=== PATIENT | male | born 1965 | race Caucasian/White ===

== ENCOUNTER 2020-12-09 10:25 | Emergency (ER) | payer OTHER ==
[~2020-12-09] VITALS: Ht 177.8 cm; Wt 104.5 kg
[2020-12-09] MEDS ORDERED: LIDOCAINE/EPI 1%-1:100,000 (XYLOCAINE) 20ML INJ ONE (11:30)
[2020-12-09] MEDS ORDERED: LIDOCAINE/EPI 2% 1:100,00 (XYLOCAINE) 20 ML VIAL INJ ONE (11:45)
[2020-12-09] MEDS: LIDOCAINE 1% INJ 20 ML 20 ML VIAL INJ ONE ×2 (11:54→11:58)
[2020-12-09] MEDS ORDERED: SULF1TAB35 PO (12:01)
--- NOTE | 2020-12-09 12:01 | ED Integumentary General ---
General Chief Complaint: Skin/Wound Problems Stated Complaint: L LEG BOIL Nursing Triage Note: AMB TO ROOM HAS AREA ON BACK OF L LEG X 4 DAYS STATES HAS SAMETHING LAST YEAR POKED IT WITH A NEEDLE. AND IT GOT BETTR. POKED IT 3 DAYS AGO AND IT HAS GOTTEN RED AND PAINFUL Source: patient Exam Limitations: no limitations (JOSE WILL MD) History of Present Illness Date Seen by Provider: December 09, 2020 Time Seen by Provider: 11:08 Initial Comments Here with report of abscess to the lateral upper aspect of the left leg at the underwear line. This is gotten worse over the last 4 days. Previously had 1 similar in the same area that he was able to get to drain but this 1 would not. Patient states he is diabetic but controlled by diet. Also complained of some right testicular pain. Denies any wounds or skin issues there and that comes and goes daily over the last several weeks. 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 Denies dysuria. Timing/Duration: other (4 days) Severity: moderate Location: extremities Possible Cause: no cause identified Associated Symptoms: change in skin texture; No fever; swelling/mass/lumps (JOSE WILL MD) Allergies and Home Medications Allergies Coded Allergies: No Known Drug Allergies (Unverified , 12/09/20) Home Medications Sulfamethoxazole/Trimethoprim 1 Each Tablet, 1 EACH PO BID Prescribed by: JOSE WILL on 12/09/20 1201 Patient Home Medication List Home Medication List Reviewed: Yes (JOSE WILL MD) Review of Systems Review of Systems Constitutional: see HPI; No chills, No fever Respiratory: no symptoms reported Cardiovascular: no symptoms reported Genitourinary: see HPI; No dysuria Skin: see HPI, change in color, lesions (JOSE WILL MD) Past Qmqohlf-Pyzqrm-Pfnjlp Hx Past Med/Social Hx: Reviewed Nursing Past Med/Soc Hx (JOSE WILL MD) Patient Social History Alcohol Use: Occasionally Uses Smoking Status: Never a Smoker Recent Infectious Disease Expo: No (JOSE WILL MD) Past Medical History Surgeries: No Respiratory: No Cardiac: No Neurological: No Genitourinary: No Gastrointestinal: No Musculoskeletal: No Endocrine: No (PAST HX BEFORE WT LOSS) Integumentary: No (JOSE WILL MD) Family Medical History Reviewed Nursing Family Hx (JOSE WILL MD) Physical Exam Vital Signs Vital Signs - First Documented 12/09/20 10:32 Temp 36.0 Pulse 96 Resp 18 B/P (MAP) 145/111 (122) Pulse Ox 96 O2 Delivery Room Air (NORIS SMITH APRN) Vital Signs Capillary Refill : Less Than 3 Seconds (JOSE WILL MD) General Appearance: WD/WN, no apparent distress Cardiovascular: regular rate, rhythm, no murmur Respiratory: lungs clear, normal breath sounds Skin: warm/dry Skin Problem Location: lower extremities (Left upper lateral lower extremity) Skin Problem Character: abscess (3 x 3 cm), erythema (6 x 6 cm) Comments Testicular exam shows both testicles without mass. No obvious erythema or swelling. Right inguinal paper twister tender and worse with cough. Does have small umbilical hernia and right inguinal hernia. (JOSE WILL MD) Procedures/Interventions I&D : Blade Size: 11 Packing/Drain: Idoform 08/08 Progress Anesthetized locally with 2 mL of 1% lidocaine without epinephrine. 1 cm in cision made with 11 blade scalpel. Large amount of purulent and clotted blood material expressed. Culture collected and sent to lab. Loculations broken up with the sterile Q-tip. Cavity was then irrigated with chlorhexidine/saline solution then packed with iodoform gauze quarter inch. (NORIS SMITH APRN) Progress/Results/Core Measures Results/Orders My Orders Orders - NORIS SMITH APRN Lidocaine/Epi 2% 1:100,000 (Xylocaine/Ep (12/09/20 11:45) Lidocaine 1% Inj 20 Ml (Xylocaine 1% Inj (12/09/20 11:45) (NORIS SMITH APRN) Medications Given in ED Current Medications Medications Dose Ordered Sig/Ernestine Route Start Time Stop Time Status Last Admin Dose Admin Lidocaine HCl 20 ml ONCE ONCE INJ 12/09/20 11:45 12/09/20 11:46 DC 12/09/20 11:58 20 ML (NORIS SMITH APRN) Vital Signs/I&O 12/09/20 10:32 Temp 36.0 Pulse 96 Resp 18 B/P (MAP) 145/111 (122) Pulse Ox 96 O2 Delivery Room Air (NORIS SMITH APRN) Blood Pressure Mean: 122 Progress Progress Note : Progress Note Seen and evaluated. I&D by Noris Smith APRN. I did discuss with the patient regarding hernia. He will follow-up as needed. (JOSE WILL MD) Departure Impression Primary Impression: Abscess of left leg Additional Impression: Right inguinal hernia Disposition: HOME, SELF-CARE Condition: Improved Departure-Patient Inst. Decision time for Depature: 12:00 (JOSE WILL MD) Referrals: NO,LOCAL PHYSICIAN (PCP/Family) Primary Care Physician Patient Instructions: Inguinal and Femoral (Groin) Hernias, Wound Incision and Drainage (DC) Add. Discharge Instructions: 1. Return to ER on Saturday for wound check. You can take the gauze off to shower and to change it as needed. Return Saturday and we will remove the packing and maybe leave it out or maybe repack it. Return to ER for any fevers chills or worsening symptoms in the meantime. All discharge instructions reviewed with patient and/or family. Voiced understan rosie. Scripts Cephalexin (Cephalexin) 500 Mg Tablet 500 MG PO TID, #21 TAB Prov: NORIS SMITH APRN 12/09/20 Sulfamethoxazole/Trimethoprim (Bactrim Ds Tablet) 1 Each Tablet 1 EACH PO BID, #20 TAB 0 Refills Prov: JOSE WILL MD 12/09/20 JOSE WILL MD December 09, 2020 12:01 NORIS SMITH APRN December 09, 2020 12:05
[2020-12-09] MEDS ORDERED: CEPH500T PO (12:04)
[2020-12-09 12:09] VITALS: BP 143/100
== END 2020-12-09 12:16 | disposition home or self-care (01) ==
LOC: ER 10:29
DX: L02.416 Cutaneous abscess of left lower limb (principal); K40.90 Unilateral inguinal hernia, without obstruction or gangrene, not specified as recurrent; E11.9 Type 2 diabetes mellitus without complications
CPT/HCPCS: 10061; 87070; 87077; 87205

== ENCOUNTER 2020-12-12 13:38 | Emergency (ER) | payer OTHER ==
[~2020-12-12] VITALS: Ht 177 cm; Wt 104.0 kg
[~2020-12-12 13:38] MED LIST: CEPH500T PO; SULF1TAB35 PO
[2020-12-12 13:40] VITALS: BP 122/83
--- NOTE | 2020-12-12 14:12 | ED Suture Removal/Wound Check ---
Suture/Wound Re-check Suture Removal/Wound Recheck : Suture Removal/Wound Recheck: Packing removed General Appearance: WD/WN, no apparent distress Skin Exam: normal color, warm/dry Comments Wound without any active drainage, no erythema, induration or fluctuance. Packing removed. Patient tolerated well. Wound irrigated with 500 mL of sterile saline and bulky sterile dressing applied. No further packing used. Physical Exam Vital Signs Vital Signs - First Documented 12/12/20 13:40 Temp 36.6 Pulse 86 Resp 20 B/P (MAP) 122/83 Pulse Ox 96 Capillary Refill : General Appearance: WD/WN, no apparent distress Cardiovascular: normal peripheral pulses, regular rate, rhythm Respiratory: chest non-tender, lungs clear Neurologic/Psychiatric: no motor/sensory deficits, alert, normal mood/affect, oriented x 3 Skin: normal color, warm/dry Departure Impression Primary Impression: Abscess of left thigh Disposition: 01 HOME, SELF-CARE Condition: Improved Departure-Patient Inst. Decision time for Depature: 14:05 Referrals: [facility],LOCAL PHYSICIAN (PCP) Primary Care Physician Add. Discharge Instructions: Finish all antibiotics as prescribed. Clean wound with peroxide 2-3 times daily. Use dressing as needed for drainage. Establish care with a primary care provider. Return to the emergency department for new, urgent healthcare needs. All discharge instructions reviewed with patient and/or family. Voiced understa nding. SUSANNE ANTHONY December 12, 2020 14:12
== END 2020-12-12 14:15 | disposition home or self-care (01) ==
LOC: EDUNIT# 13:38 → ER 13:40
DX: Z48.01 Encounter for change or removal of surgical wound dressing (principal)
CPT/HCPCS: 99281

== ENCOUNTER 2021-04-01 22:34 | Emergency (ER) | payer OTHER ==
[~2021-04-01] VITALS: Ht 177.8 cm; Wt 100.0 kg
[~2021-04-01 22:34] MED LIST changes: -SULF1TAB35 PO; +SULF1TAB38 PO
--- OUTSIDE RECORDS SUMMARY | 2021-04-01 22:41 | XMS REPORT ---
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 Phone YADIEL CHINCHILLA PCP YADIEL CHINCHILLA PreferredProvider Allergies and Adverse Reactions Name Reaction Notes No known allergies Plan of Treatment Planned Activity Comments Planned Date Planned Time Plan/Goal CBC with Auto 03/15/2021 12:00 AM Comprehensive metabolic panel 03/15/2021 12:00 AM Lipid Profile 03/15/2021 12:00 AM HGB A1C 03/15/2021 12:00 AM PSA TOTAL 03/15/2021 12:00 AM Medications Active Name Start Date Estimated Completion Date SIG Co mments sildenafil (pulmonary hypertension) 20 mg tablet 02/23/2021 take 1 tablet (20 mg) by oral route 3 times per day Name Start Date Expiration Date SIG Comments Cipro 500 mg tablet 12/30/2020 01/09/2021 take 1 table t (500 mg) by oral route 2 times per day for 10 days Xanax 0.5 mg tablet 12/30/2020 01/29/2021 1/2 to 1 twi ce daily as needed for anxiety Cialis 20 mg tablet 12/30/2020 01/10/2021 take 1 table t (20 mg) by oral route once daily for 1 day Problem List Description Status Onset Type 2 diabetes, diet controlled Active 021 Erectile dysfunction, unspecified erectile dysfunction type Active 01/01/2021 RIVERA (generalized anxiety disorder) Active 01/01 Vital Signs Date Time BP-Sys(mm[Hg] BP-Jaki(mm[Hg]) HR(bpm) RR(rpm) Temp WT HT HC BMI BSA BMI Percentile O2 Sat(%) 12/30/2020 9:27:00 AM 118 mm[Hg] 82 mm[Hg] 88 {beats}/min 18 rpm 98.1 F 238 lbs 70 in 34.1491 kg/m2 2.3091 m2 96 % Social History Name Description Comments Alcohol Never Tobacco Never smoker Uses seatbelts History of Procedures Date Ordered Description Order Status 03/15/2021 12:00 AM ROUTINE VENIPUNCTURE Reviewed Results Summary Not available. History Of Immunizations Not available. History of Past Illness Name Date of Onset Comments Type 2 diabetes, diet controlled 01/01/2021 Erectile dysfunction, unspecified erectile dysfunction type 01/01/2021 RIVERA (generalized anxiety disorder) 01/01/2021 Moderate Chronic Recurrent Type 2 diabetes, diet controlled Dec 30 2020 9:28AM Erectile dysfunction, unspecified erectile dysfunction type Dec 30 2020 9:28AM Flank pain Dec 30 2020 9:28AM Establishing care with new doctor, encounter for Dec 30 2020 9:28AM Mild Chronic Recurrent RIVERA (generalized anxiety disorder) Ma y 2020 9:28AM Stress at work Dec 30 2020 9:28AM Medication care plan discussed with patient Dec 30 2020 9:2 8AM Type 2 diabetes, diet controlled Mar 15 2021 8:52AM Screening for prostate cancer Mar 15 2021 8:52AM Payers Insurance Name Company Name Plan Name Plan Number Policy Number [place] [employer] Group Number Start Date W[employer]o Maryclementluisito [id number] N/A History of Encounters Visit Date Visit Type Provider 03/15/2021 Laboratory YADIEL JONES 12/30/2020 Office visit YADIEL JONES
--- OUTSIDE RECORDS SUMMARY | 2021-04-01 22:41 | XMS REPORT ---
Author Author Sammy CHINCHILLA [facility] Address [address] [place], [place] [id number] Care Team Providers Care Bean Sorter Name Role Phone YADIEL CHINCHILLA PCP YADIEL CHINCHILLA PreferredProvider Allergies and Adverse Reactions Name Reaction Notes No known allergies Plan of Treatment Planned Activity Comments Planned Date Planned Time Plan/Goal CBC with Auto 03/15/2021 12:00 AM Comprehensive metabolic panel 03/15/2021 12:00 AM Lipid Profile 03/15/2021 12:00 AM HGB A1C 03/15/2021 12:00 AM PSA TOTAL 03/15/2021 12:00 AM TESTOSTERONE FREE 03/15/2021 12:00 AM Medications Active Name Start [...] Mild Chronic Recurrent RIVERA (generalized anxiety disorder) Dc y 2020 9:28AM Stress at work Dec 30 2020 9:28AM Medication care plan discussed with patient Dec 30 2020 9:2 8AM Type 2 diabetes, diet controlled Mar 15 2021 8:52AM Screening for prostate cancer Mar 15 2021 8:52AM Erectile disorder, acquired, generalized, moderate Mar 15 8:52AM Payers Insurance Name Company Name Plan Name Plan Number Policy Number [employer] Group Number Start Date W[employer] [place] [id number] N/A History of Encounters Visit Date Visit Type Provider 03/15/2021 Laboratory YADIEL JONES 12/30/2020 Office visit YADIEL JONES
[2021-04-02] MEDS ORDERED: ACETAMINOPHEN 500 MG TAB (TYLENOL) PO ONE
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
[2021-04-02] MEDS ORDERED: KETOROLAC 30 MG/ML VIAL IM ONE (01:30)
[2021-04-02 01:46] VITALS: BP 126/80
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
== END 2021-04-02 01:43 | disposition home or self-care (01) ==
LOC: EDUNIT# 22:34 → ER 22:37
DX: M54.5 Low back pain (principal)
CPT/HCPCS: 72131; 72192

== ENCOUNTER 2023-03-28 19:41 | Inpatient (IN) | payer OTHER ==
[~2023-03-28] VITALS: Ht 175.3 cm; Wt 108.6 kg
[2023-03-28] MEDS ORDERED: ASPIRIN 81 MG CHEWABLE TABLET ONE (19:53)
[2023-03-28 20:05] LABS: BASOPHILS % (AUTO) 0 % (0-10); EOSINOPHILS % (AUTO) 0 % (0-10); HEMATOCRIT 42 % (40-54); HEMOGLOBIN 14.5 g/dL (13.3-17.7); LYMPHOCYTES # (AUTO) 0.9 10^3/uL (1.0-4.0); LYMPHOCYTES % (AUTO) 10 % (12-44); MEAN CORPUSCULAR HEMOGLOBIN 31 pg (25-34); MEAN CORPUSCULAR HGB CONC 35 g/dL (32-36); MEAN CORPUSCULAR VOLUME 90 fL (80-99); MEAN PLATELET VOLUME 10.8 fL (9.0-12.2); MONOCYTES # (AUTO) 0.1 10^3/uL (0.0-1.0); MONOCYTES % (AUTO) 1 % (0-12); NEUTROPHILS # (AUTO) 8.5 10^3/uL (1.8-7.8); NEUTROPHILS % (AUTO) 89 % (42-75); PLATELET COUNT 245 10^3/uL (130-400); WHITE BLOOD COUNT 9.6 10^3/uL (4.3-11.0)
--- NOTE | 2023-03-28 20:14 | ED Chest Pain ---
General Chief Complaint: Chest Pain Stated Complaint: CHEST PAIN Source: patient Exam Limitations: no limitations History of Present Illness Date Seen by Provider: Mar 28, 2023 Time Seen by Provider: 19:56 Initial Comments 57-year-old male presents to the ER with complaint of chest pain that started 2 hours prior to arrival. He states that the pain is a pressure-like pain in his midsternal chest, but also has pain across his entire chest. Reports diaphoresis and nausea with the pain. States that he was walking around at work when the pain started. Denies radiation of the pain into his arms, neck, or back. Denies shortness of air. States that the pain usually last about 3 hours, states it improves after taking Tylenol and ibuprofen. Past medical history includes diabetes. Reports occasional cigar use, states he does not inhale the cigars. Patient also complaining of pain in his right back. States the pain starts in his right neck and goes all the way down the right side of his back. Reports he has been seeing a chiropractor for this pain, but reports minimal improvement. Allergies and Home Medications Allergies Coded Allergies: No Known Drug Allergies (Unverified , 12/09/20) Patient Home Medication List Home Medication List Reviewed: Yes Acetaminophen (Tylenol Extra Strength) 500 Mg Tablet, 1,000 MG PO Q8H PRN for PAIN-MILD (1-4), (Reported) Entered as Reported by: KATIE MOSQUEDA on 03/29/23 1046 Last Action: Reviewed Ibuprofen (Ibuprofen) 200 Mg Tablet, 400 MG PO Q8H PRN for PAIN-MILD (1-4), (Reported) Entered as Reported by: KATIE MOSQUEDA on 03/29/23 104 Last Action: Reviewed Metformin HCl (Metformin HCl) 500 Mg Tablet, 500 MG PO BID, (Reported) Entered as Reported by: KATIE MOSQUEDA on 03/29/23 104 Last Action: Reviewed Discontinued Medications Cephalexin (Cephalexin) 500 Mg Tablet, 500 MG PO TID Discontinued Reason: No Longer Taking Prescribed by: NORIS SMITH on 12/09/20 1204 Last Action: Discontinued Sulfamethoxazole/Trimethoprim (Bactrim Ds Tablet) 1 Each Tablet, 1 EACH PO BID Discontinued Reason: No Longer Taking Prescribed by: JOSE WILL on 12/09/20 1201 Last Action: Discontinued Review of Systems Review of Systems Constitutional: see HPI Past Msmmsjn-Xcaegt-Wwdrbc Hx Patient Social History Tobacco Use?: Yes Tobacco type used: Cigars Smoking Status: Current Someday Smoker Additional substance use comme: DENIES Immunizations Up To Date Second COVID19 Vaccination Matthias: 03/27/21 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 oz. kg; 31.00 BMI Method:Actual General Appearance: No Apparent Distress, WD/WN Neck: Full Range of Motion, Normal Inspection, Supple, Tender Lateral Respiratory: Lungs Clear, Normal Breath Sounds, No Accessory Muscle Use, No Respiratory Distress, Other (Chest is tender to palpation) Cardiovascular: Regular Rate, Rhythm Extremity: Normal Inspection, Normal Range of Motion Neurologic/Psychiatric: Alert, No Motor/Sensory Deficits Skin: Normal Color, Warm/Dry Other comments Tenderness to muscles on the right side of patient's back Progress/Results/Core Measures Results/Orders Lab Results Laboratory Tests Test 03/28/23 19:57 03/28/23 20:20 03/28/23 20:56 03/28/23 21:13 Range/Units White Blood Count 9.6 4.3-11.0 10^3/uL Red Blood Count 4.67 4.30-5.52 10^6/uL Hemoglobin 14.5 13.3-17.7 g/dL Hematocrit 42 40-54 % Mean Corpuscular Volume 90 80-99 fL Mean Corpuscular Hemoglobin 31 25-34 pg Mean Corpuscular Hemoglobin Concent 35 32-36 g/dL Red Cell Distribution Width 12.0 10.0-14.5 % Platelet Count 245 130-400 10^3/uL Mean Platelet Volume 10.8 9.0-12.2 fL Immature Granulocyte % (Auto) 1 % Neutrophils (%) (Auto) 89 H 42-75 % Lymphocytes (%) (Auto) 10 L 12-44 % Monocytes (%) (Auto) 1 0-12 % Eosinophils (%) (Auto) 0 0-10 % Basophils (%) (Auto) 0 0-10 % Neutrophils # (Auto) 8.5 H 1.8-7.8 10^3/uL Lymphocytes # (Auto) 0.9 L 1.0-4.0 10^3/uL Monocytes # (Auto) 0.1 0.0-1.0 10^3/uL Eosinophils # (Auto) 0.0 0.0-0.3 10^3/uL Basophils # (Auto) 0.0 0.0-0.1 10^3/uL Immature Granulocyte # (Auto) 0.1 0.0-0.1 10^3/uL Neutrophils % (Manual) 91 % Lymphocytes % (Manual) 6 % Band Neutrophils 3 % Platelet Estimate ADEQUATE Blood Morphology Comment NORMAL Sodium Level 138 135-145 MMOL/L Potassium Level 5.0 3.6-5.0 MMOL/L Chloride Level 108 H 98-107 MMOL/L Carbon Dioxide Level 17 L 21-32 MMOL/L Anion Gap 13 5-14 MMOL/L Blood Urea Nitrogen 19 H 7-18 MG/DL Creatinine 1.47 H 0.60-1.30 MG/DL Estimat Glomerular Filtration Rate 55 BUN/Creatinine Ratio 13 Glucose Level 557 *H 70-105 MG/DL Calcium Level 8.8 8.5-10.1 MG/DL Corrected Calcium 8.9 8.5-10.1 MG/DL Magnesium Level 1.8 1.6-2.4 MG/DL Total Bilirubin 0.3 0.1-1.0 MG/DL Aspartate Amino Transf (AST/SGOT) 14 5-34 U/L Alanine Aminotransferase (ALT/SGPT) 19 0-55 U/L Alkaline Phosphatase 66 40-136 U/L Troponin I 0.044 H <0.028 NG/ML Total Protein 6.9 6.4-8.2 GM/DL Albumin 3.9 3.2-4.5 GM/DL Lipase 12 8-78 U/L Prothrombin Time 12.9 12.2-14.7 SEC INR Comment 1.0 0.8-1.4 Activated Partial Thromboplast Time 24 24-35 SEC Venous Blood pH 7.38 7.31-7.41 Venous Blood Partial Pressure CO2 32 L 40-52 MMHG Venous Blood HCO3 19 L 22-28 MMOL/L Urine Color YELLOW Urine Clarity CLEAR Urine pH 5.0 5-9 Urine Specific [place] 1.010 L 1.016-1.022 Urine Protein NEGATIVE NEGATIVE Urine Glucose (UA) 3+ H NEGATIVE Urine Ketones 1+ H NEGATIVE Urine Nitrite NEGATIVE NEGATIVE Urine Bilirubin NEGATIVE NEGATIVE Urine Urobilinogen 0.2 < = 1.0 MG/DL Urine Leukocyte Esterase NEGATIVE NEGATIVE Urine RBC (Auto) NEGATIVE NEGATIVE Urine RBC NONE /HPF Urine WBC NONE /HPF Urine Squamous Epithelial Cells 0-2 /HPF Urine Crystals NONE /LPF Urine Bacteria NEGATIVE /HPF Urine Casts NONE /LPF Urine Mucus NEGATIVE /LPF Urine Culture Indicated NO My Orders Orders - CHERY FRITZ DIRECTOR OF DANCE Cbc With Automated Diff (03/28/23 19:56) Magnesium (03/28/23 19:56) Chest 1 View, Ap/Pa Only (03/28/23 19:56) Comprehensive Metabolic Panel (03/28/23 19:56) Protime With Inr (03/28/23 19:56) Partial Thromboplastin Time (03/28/23 19:56) Monitor-Rhythm Ecg Trace Only (03/28/23 19:56) Ed Iv/Invasive Line Start (03/28/23 19:56) Troponin I [place] (03/28/23 19:56) Manual Differential (03/28/23 19:57) Aspirin Chewable Tablet (Aspirin Chewabl (03/28/23 20:15) Ns Iv 1000 Ml (Ns Iv 1000 Ml) (03/28/23 20:15) Lipase (03/28/23 20:14) Ct Cervical Spine Wo (03/28/23 20:26) Orphenadrine Inj (Ed Only) (Orphenadrine (03/28/23 20:30) Ua Culture If Indicated (03/28/23 20:44) Venous Blood Gas (03/28/23 20:44) Enoxaparin Injection (Enoxaparin Injecti (03/28/23 21:15) Nitroglycerin 0.4 Mg Btl 25's (Nitroglyc (03/28/23 21:15) Nitroglycerin 0.4 Mg Btl 25's (Nitroglyc (03/28/23 21:13) O2 (03/28/23 21:24) Morphine Injection (Morphine Injection (03/28/23 21:45) Insulin Aspart (Per Unit) (Insulin Aspar (03/28/23 21:45) Morphine Injection (Morphine Injection (03/28/23 21:52) Ed Admission (Communication) (03/28/23 21:53) Medications Given in ED Vital Signs/I&O 03/28/23 03/28/23 03/28/23 03/28/23 19:45 19:45 21:24 22:29 Temp 36.6 36.6 Pulse 113 99 Resp 16 16 B/P (MAP) 152/105 (121) 110/65 Pulse Ox 95 93 O2 Delivery Room Air Room Air Nasal Cannula Nasal Cannula O2 Flow Rate 3.00 4.00 03/29/23 00:00 Intake Total 1000 ml Balance 1000 ml Progress Progress Note : Progress Note Patient seen and evaluated, resting comfortably in bed, no acute distress. Based on exam and symptoms, cardiac work-up initiated including CBC, CMP, coags, lipase, troponin, magnesium, EKG, chest x-ray. Patient requesting CT of the neck. 2057 Labs and imaging reviewed. CBC shows elevated neutrophil percentage 89. CMP shows slightly elevated chloride 108, slightly decreased CO2 of 17, anion gap normal 13, BUN elevated 19, creatinine elevated 1.47, GFR decreased 55. Close critically elevated 557. Troponin elevated 0.044. Lipase normal. Chest x-ray shows diffuse bilateral interstitial opacities with pulmonary interstitial edema or atypical viral pneumonia. Also shows cardiomegaly with pulmonary vascular congestion. CT of the neck shows mild multilevel degenerative changes with mild multilevel spinal canal and neuroforaminal stenosis. Urinalysis and VBG ordered to evaluate elevated glucose. I called and spoke with Dr. Phna, cardiology, regarding patient. He recommends trying nitro tablets and administering Lovenox. 2135 Urinalysis reviewed. Shows 3+ glucose, 1+ ketones. VBG shows normal pH 7.38. Patient reports some improvement in chest pain states he went from a 10/10 to a 6-7/10 after the 3 nitro's. Patient's oxygen saturation decreased to 84-85% on room air while getting nitroglycerin. Patient denies any shortness of air, does not appear to be in any acute respiratory distress. Patient was marko nataliia on 4 L via nasal cannula by nursing staff. Patient was given IV fluids on arrival due to tachycardia and no history of heart failure. It is possible that this caused some fluid overload. I called and spoke with Dr. Reyes, hospitalist. He agrees to admit patient. He would like me to place admission orders including diet, sliding scale insulin. He also would like me to ad marketing professional 20 units of NovoLog at this time. All results have been discussed with patient. Plan of care discussed with patient. Initial ECG Impression Date: Mar 28, 2023 Initial ECG Impression Time: 19:50 Initial ECG Rate: 107 Initial ECG Rhythm: S.Tach Initial ECG Intervals: Normal Initial ECG Impression: Nonspecific Changes Initial ECG Comparisson: No Previous ECG Available Comment Q waves in lead III, no ST elevation or depression, or T wave inversion. Diagnostic Imaging Diagonstic Imaging: Xray Plain Films/CT/US/NM/MRI: chest Comments [facility] [place] [place] NAME: SORENVirtru REC#: [id number] PT STATUS: REG ER : 1965 PHYSICIAN: CHERY FRITZ APRN ADMIT DATE: 03/28/23/ER Signed Date of Exam:03/28/23 CHEST 1 VIEW, AP/PA ONLY CHEST 1 VIEW, AP/PA ONLY INDICATION: Chest pain. COMPARISON: None. FINDINGS: Lungs: Normal lung volume. Diffuse bilateral interstitial opacities. Pleura: No pleural effusion or pneumothorax. Heart and Mediastinum: Cardiomegaly with pulmonary vascular congestion. Osseous Structures and Soft Tissues: No acute osseous abnormality. Normal soft tissues. IMPRESSION: Diffuse bilateral interstitial opacities mixed with pulmonary interstitial edema or atypical/viral pneumonia. Cardiomegaly with pulmonary vascular congestion. Dictated by: Dictated on workstation # [id number] Dict: 03/28/232036 Trans: 03/28/232037 [facility] [place] [id number] Interpreted by: WALKER HICKMAN DO Electronically signed by: WALKER HICKMAN DO 03/28/232037 Diagonstic Imaging: CT Plain Films/CT/US/NM/MRI: c-spine Comments [facility] [place] [place] NAME: SORENHotel Urbano REC#: [id number] PT STATUS: REG ER : 1965 PHYSICIAN: CHERY FRITZ APRN ADMIT DATE: 03/28/23/ER Signed Date of Exam:03/28/23 CT CERVICAL SPINE WO PROCEDURE: CT cervical spine without contrast. TECHNIQUE: Multiple contiguous axial images were obtained through the cervical spine without the use of intravenous contrast. Sagittal and coronal reformations were then performed. Auto Exposure Controls were utilized during the CT exam to meet ALARA standards for radiation dose reduction. INDICATION: Chest pain, neck pain COMPARISON: None available. FINDINGS: Straightening of the cervical lordosis. Mild multilevel facet arthritis. No lytic or sclerotic bone lesions. No acute fracture or dislocation of the cervical spine. Mild multilevel degenerative changes with mild multilevel spinal canal and neural foraminal stenosis. No lymphadenopathy within the visualized soft tissues. Included lung apices demonstrate interstitial thickening. IMPRESSION: No acute fracture or dislocation of the cervical spine. No high-grade spinal canal or neural foraminal stenosis. Interstitial thickening in the included lung apices may be seen with interstitial pulmonary edema. Dictated by: Dictated on workstation # [id number] Dict: 03/28/232040 Trans: 03/28/232043 [facility] [place] [id number] Interpreted by: WALKER HICKMAN DO Electronically signed by: WALKER HICKMAN DO 03/28/232043 Departure Communication (Admissions) Time/Spoke to Admitting Phy: 21:36 Dr. Reyes, hospitalist, see progress note. Time/Spoke to Consulting Phy: 20:58 Dr. Phan, cardiology, see progress note. Impression Primary Impression: NSTEMI (non-ST elevated myocardial infarction) Disposition: ADMITTED INPATIENT Condition: Critical Admissions Decision to Admit Reason: Admit from ER (General) Decision to Admit/Date: Mar 28, 2023 Time/Decision to Admit Time: 21:00 Departure-Patient Inst. Referrals: YADIEL CHINCHILLA (PCP/Family) Primary Care Physician CHERY FRITZ APRN Mar 28, 2023 20:14
[2023-03-28] MEDS ORDERED: NS IV 1000 ML 1,000 ML IV SCH (20:15)
[2023-03-28] MEDS ORDERED: ASPIRIN 81 MG CHEWABLE TABLET PO ONE (20:15)
[2023-03-28 20:21] LABS: ALBUMIN 3.9 GM/DL (3.2-4.5); BILIRUBIN,TOTAL 0.3 MG/DL (0.1-1.0); CALCIUM 8.8 MG/DL (8.5-10.1); CREATININE SERUM 1.47 MG/DL (0.60-1.30); MAGNESIUM 1.8 MG/DL (1.6-2.4); TOTAL PROTEIN 6.9 GM/DL (6.4-8.2)
[2023-03-28] MEDS ORDERED: ORPHENADRINE 60 MG/2 ML AMP (ED ONLY) IV ONE (20:30)
[2023-03-28 20:34] LABS: BAND NEUTROPHILS 3 %; LYMPHOCYTES % (MANUAL) 6 %; NEUTROPHILS % (MANUAL) 91 %; PLATELET ESTIMATE ADEQUATE; RBC MORPH NORMAL
--- NOTE | 2023-03-28 20:39 | Diagnostic Imaging Report ---
CHEST 1 VIEW, AP/PA ONLY INDICATION: Chest pain. COMPARISON: None. FINDINGS: Lungs: Normal lung volume. Diffuse bilateral interstitial opacities. Pleura: No pleural effusion or pneumothorax. Heart and Mediastinum: Cardiomegaly with pulmonary vascular congestion. Osseous Structures and Soft Tissues: No acute osseous abnormality. Normal soft tissues. IMPRESSION: Diffuse bilateral interstitial opacities mixed with pulmonary interstitial edema or atypical/viral pneumonia. Cardiomegaly with pulmonary vascular congestion. Dictated by: Dictated on workstation # [id number]
[2023-03-28 20:42] LABS: PROTHROMBIN TIME PATIENT 12.9 SEC (12.2-14.7)
--- NOTE | 2023-03-28 20:45 | Diagnostic Imaging Report ---
PROCEDURE: CT cervical spine without contrast. TECHNIQUE: Multiple contiguous axial images were obtained through the cervical spine without the use of intravenous contrast. Sagittal and coronal reformations were then performed. Auto Exposure Controls were utilized during the CT exam to meet ALARA standards for radiation dose reduction. INDICATION: Chest pain, neck pain COMPARISON: None available. FINDINGS: Straightening of the cervical lordosis. Mild multilevel facet arthritis. No lytic or sclerotic bone lesions. No acute fracture or dislocation of the cervical spine. Mild multilevel degenerative changes with mild multilevel spinal canal and neural foraminal stenosis. No lymphadenopathy within the visualized soft tissues. Included lung apices demonstrate interstitial thickening. IMPRESSION: No acute fracture or dislocation of the cervical spine. No high-grade spinal canal or neural foraminal stenosis. Interstitial thickening in the included lung apices may be seen with interstitial pulmonary edema. Dictated by: Dictated on workstation # [id number]
[2023-03-28] MEDS ORDERED: NITRO DRIP 25000 MCG/D5W 250 ML IV SCH (21:00)
[2023-03-28] MEDS ORDERED: NITROGLYCERIN 0.4 MG SL TABLETS BTL 25'S SL ONE (21:13)
[2023-03-28] MEDS: NITROGLYCERIN 0.4 MG SL TABLETS BTL 25'S SL PRN ×3 (21:15→21:31)
[2023-03-28] MEDS ORDERED: ENOXAPARIN 100 MG/1 ML SYRINGE SC ONE (21:15)
[2023-03-28 21:28] LABS: BACTERIA,URINE NEGATIVE /HPF; BILIRUBIN,URINE NEGATIVE (NEGATIVE); CLARITY,URINE CLEAR; COLOR,URINE YELLOW; GLUCOSE, URINE (UA) 3+ (NEGATIVE); KETONES,URINE 1+ (NEGATIVE); LEUKOCYTE ESTERASE ,URINE NEGATIVE (NEGATIVE); NITRITE,URINE NEGATIVE (NEGATIVE); PROTEIN,URINE NEGATIVE (NEGATIVE); SQUAMOUS EPITHELIAL CELL,UR 0-2 /HPF
[2023-03-28] MEDS ORDERED: inSUlin ASPART 1 UNIT/0.01 ML (PER UNIT) SC ONE (21:45)
[2023-03-28] MEDS ORDERED: morphine INJ 10 MG/ML 1ML (SYR OR VIAL) IVP STA (21:45)
[2023-03-28] MEDS ORDERED: morphine INJ 4 MG/ML 1 ML (VIAL/SYRINGE) ONE (21:52)
[2023-03-28] MEDS ORDERED: NITROGLYCERIN 0.4 MG SL TABLETS BTL 25'S SL PRN (23:00)
[2023-03-28] MEDS ORDERED: ONDANSETRON INJECTION 4 MG/2 ML (SDV) IVP PRN (23:00)
[2023-03-28] MEDS ORDERED: morphine INJ 4 MG/ML 1 ML (VIAL/SYRINGE) IV PRN (23:00)
--- NOTE | 2023-03-28 23:03 | Tele-ICU Consult ---
History of Present Illness History of Present Illness Date Seen by Provider: Mar 28, 2023 Time Seen by Provider: 22:58 History of Present Illness eICU critical care consult 57 yo M with off/on CP last 2 weeks. Came to ED with elevated troponin, O.0444, EKG normal, Hx of DM2, glu in ED 557, Given 20 U of short acting insulin Not having SOB, was having diaphoresis. Given SQ Lovenox, NTG, ASA, CP baetter went from 10 to 7 GP briefly dropped 80/45, now 128/87 Cr is elevated at 1.47, CXR shows increased HS and pulm edema Allergies and Home Medications Allergies Coded Allergies: No Known Drug Allergies (Unverified , 12/09/20) Home Medications Cephalexin 500 Mg Tablet, 500 MG PO TID Prescribed by: NORIS SMITH on 12/09/20 1204 Sulfamethoxazole/Trimethoprim 1 Each Tablet, 1 EACH PO BID Prescribed by: JOSE WILL on 12/09/20 1201 Past Medical/Social/Family Hx Patient Social History Tobacco Use?: Yes Tobacco type used: Cigars Smoking Status: Current Someday Smoker DENIES Additional alcohol type: DENIES Immunizations Up To Date Second COVID19 Vaccination Matthias: 03/27/21 Tetanus Booster (TDap): Less Than 5 Years Current Status Primary Language: Fijian Preferred Spoken Language: Fijian Is interpretation needed?: No Review of Systems Constitutional: no symptoms reported Cardiovascular: other (CP down to 2) Focused Exam Height, Weight, BMI Height: '" Weight: lbs. oz. kg; 33.00 BMI Method:Actual Exam Exam Patient acknowledged, consented, and participated in this virtual visit which w as conducted using real time audio/video Vital Signs Date Time Temp Pulse Resp B/P (MAP) Pulse Ox O2 Delivery O2 Flow Rate FiO2 03/28/23 22:52 36.3 105 129/87 (101) Nasal Cannula 2.00 03/28/23 22:29 36.6 99 16 110/65 93 Nasal Cannula 4.00 03/28/23 21:24 Nasal Cannula 3.00 03/28/23 19:45 36.6 113 16 152/105 (121) 95 Room Air 03/28/23 19:45 Room Air Height & Weight Height: '" Weight: lbs. oz. kg; 33.00 BMI Method:Actual General Appearance: No Apparent Distress, WD/WN Neck: Full Range of Motion, Normal Inspection, Supple, Tender Lateral Respiratory: Lungs Clear, Normal Breath Sounds, No Accessory Muscle Use, No Respiratory Distress Cardiovascular: Regular Rate, Rhythm, No Edema Capillary Refill: Less Than 3 Seconds Gastrointestinal: normal bowel sounds, non tender, soft Extremity: Normal Inspection, Normal Range of Motion Neurologic/Psychiatric: Alert, Oriented x3, No Motor/Sensory Deficits Skin: Normal Color, Warm/Dry Results Lab Laboratory Tests 03/28/23 19:57 Assessment/Plan Assessment/Plan NSTEMI continue ASA, NTG, CP is now down to a 2, Microbiological Laboratory 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
[2023-03-28 23:13] VITALS: BP 129/87
[2023-03-29 01:07] LABS: BASOPHILS % (AUTO) 0 % (0-10); EOSINOPHILS % (AUTO) 0 % (0-10); HEMATOCRIT 40 % (40-54); LYMPHOCYTES % (AUTO) 10 % (12-44); MEAN CORPUSCULAR HEMOGLOBIN 31 pg (25-34); MEAN CORPUSCULAR HGB CONC 35 g/dL (32-36); MEAN CORPUSCULAR VOLUME 89 fL (80-99); MEAN PLATELET VOLUME 10.8 fL (9.0-12.2); MONOCYTES # (AUTO) 0.1 10^3/uL (0.0-1.0); MONOCYTES % (AUTO) 1 % (0-12); NEUTROPHILS % (AUTO) 88 % (42-75); PLATELET COUNT 242 10^3/uL (130-400); WHITE BLOOD COUNT 10.2 10^3/uL (4.3-11.0)
[2023-03-29 01:15] LABS: ALBUMIN 3.7 GM/DL (3.2-4.5)
[2023-03-29 01:16] LABS: CALCIUM 9.1 MG/DL (8.5-10.1)
[2023-03-29 01:18] LABS: TOTAL PROTEIN 6.5 GM/DL (6.4-8.2)
[2023-03-29 01:19] LABS: BILIRUBIN,TOTAL 0.2 MG/DL (0.1-1.0)
[2023-03-29 01:21] LABS: CREATININE SERUM 1.05 MG/DL (0.60-1.30); PHOSPHORUS 1.7 MG/DL (2.3-4.7)
[2023-03-29 01:24] LABS: MAGNESIUM 1.7 MG/DL (1.6-2.4)
[2023-03-29] MEDS ORDERED: NITRO DRIP 25000 MCG/D5W 250 ML IV SCH (02:00)
[2023-03-29 02:13] VITALS: BP 107/70
[2023-03-29] MEDS ORDERED: inSUlin ASPART 1 UNIT/0.01 ML (PER UNIT) SC SCH ×2 (06:00→07:00)
[2023-03-29] MEDS ORDERED: CATHETER FLUSH 10 ML SYR IVP SCH (06:00)
[2023-03-29] MEDS ORDERED: LIDOCAINE 1% INJ 20 ML VIAL ONE (08:40)
[2023-03-29] MEDS ORDERED: HEParin 1000 UNIT/ML (10ML VIAL) FOR BOLUS ONE (08:40)
[2023-03-29] MEDS ORDERED: HEParin (CATH LAB) 2,000 ML IV ONE (08:40)
[2023-03-29] MEDS ORDERED: NS IV 1000 ML 1,000 ML ONE (08:40)
[2023-03-29] MEDS ORDERED: fentaNYL INJECTION 100 MCG/2 ML VIAL ONE (08:42)
[2023-03-29] MEDS ORDERED: NITRO DRIP 25000 MCG/D5W 250 ML IV ONE (08:42)
[2023-03-29] MEDS ORDERED: VERAPAMIL 5 MG/2 ML (CALAN) VIAL IV ONE (08:42)
[2023-03-29] MEDS ORDERED: MIDAZOLAM INJ 5 MG/5 ML VIAL ONE (08:42)
--- NOTE | 2023-03-29 08:57 | Consultation-Cardiology ---
HPI-Cardiology Cardiology Consultation Date of Consultation 03/29/23 Date of Admission Time Seen by Provider: 08:54 Indication: Subacute myocardial infarct HPI 57-year-old gentleman with history of hypertension, hyperlipidemia, diabetes mellitus, has been having chest pain for about 2 weeks. Yesterday the pain became more severe described as dull achiness across his chest radiating to the shoulders and arms. EKG did not show any acute ischemic changes, had poor R wave progression in the anterior lead and Q waves in the inferior leads. Had troponin elevation. Continue to have chest pain, started on nitroglycerin drip Home Medications & Allergies Allergies: Coded Allergies: No Known Drug Allergies (Unverified , 12/09/20) Home Medication List Reviewed: Yes RWW-Wvpder-Jvorlc Hx Patient Social History Marital Status: Employed/Student: employed Smoking Status: Light Tobacco Smoker Alcohol Use?: No Past Medical History Discussed below Family Medical History Significant Family History: Heart Disease Review of Systems-General Review of Systems Constitutional: no symptoms reported EENTM: see HPI, no symptoms reported Respiratory: no symptoms reported, see HPI Cardiovascular: see HPI, chest pain; No edema, No Hx of Intervention, No palpitations, No syncope, No vascular heart diseas; other (CP down to 2) Gastrointestinal: no symptoms reported, see HPI Genitourinary: no symptoms reported, see HPI Musculoskeletal: no symptoms reported, see HPI Skin: no symptoms reported, see HPI Psychiatric/Neurological: No Symptoms Reported, See HPI Reviewed Test Results Reviewed Test Results Lab Laboratory Tests Test 03/28/23 19:57 03/28/23 20:20 03/28/23 20:56 03/28/23 21:13 Range/Units White Blood Count 9.6 4.3-11.0 10^3/uL Red Blood Count 4.67 4.30-5.52 10^6/uL Hemoglobin 14.5 13.3-17.7 g/dL Hematocrit 42 40-54 % Mean Corpuscular Volume 90 80-99 fL Mean Corpuscular Hemoglobin 31 25-34 pg Mean Corpuscular Hemoglobin Concent 35 32-36 g/dL Red Cell Distribution Width 12.0 10.0-14.5 % Platelet Count 245 130-400 10^3/uL Mean Platelet Volume 10.8 9.0-12.2 fL Immature Granulocyte % (Auto) 1 % Neutrophils (%) (Auto) 89 H 42-75 % Lymphocytes (%) (Auto) 10 L 12-44 % Monocytes (%) (Auto) 1 0-12 % Eosinophils (%) (Auto) 0 0-10 % Basophils (%) (Auto) 0 0-10 % Neutrophils # (Auto) 8.5 H 1.8-7.8 10^3/uL Lymphocytes # (Auto) 0.9 L 1.0-4.0 10^3/uL Monocytes # (Auto) 0.1 0.0-1.0 10^3/uL Eosinophils # (Auto) 0.0 0.0-0.3 10^3/uL Basophils # (Auto) 0.0 0.0-0.1 10^3/uL Immature Granulocyte # (Auto) 0.1 0.0-0.1 10^3/uL Neutrophils % (Manual) 91 % Lymphocytes % (Manual) 6 % Band Neutrophils 3 % Platelet Estimate ADEQUATE Blood Morphology Comment NORMAL Sodium Level 138 135-145 MMOL/L Potassium Level 5.0 3.6-5.0 MMOL/L Chloride Level 108 H 98-107 MMOL/L Carbon Dioxide Level 17 L 21-32 MMOL/L Anion Gap 13 5-14 MMOL/L Blood Urea Nitrogen 19 H 7-18 MG/DL Creatinine 1.47 H 0.60-1.30 MG/DL Estimat Glomerular Filtration Rate 55 BUN/Creatinine Ratio 13 Glucose Level 557 *H 70-105 MG/DL Calcium Level 8.8 8.5-10.1 MG/DL Corrected Calcium 8.9 8.5-10.1 MG/DL Magnesium Level 1.8 1.6-2.4 MG/DL Total Bilirubin 0.3 0.1-1.0 MG/DL Aspartate Amino Transf (AST/SGOT) 14 5-34 U/L Alanine Aminotransferase (ALT/SGPT) 19 0-55 U/L Alkaline Phosphatase 66 40-136 U/L Troponin I 0.044 H <0.028 NG/ML Total Protein 6.9 6.4-8.2 GM/DL Albumin 3.9 3.2-4.5 GM/DL Lipase 12 8-78 U/L Prothrombin Time 12.9 12.2-14.7 SEC INR Comment 1.0 0.8-1.4 Activated Partial Thromboplast Time 24 24-35 SEC Venous Blood pH 7.38 7.31-7.41 Venous Blood Partial Pressure CO2 32 L 40-52 MMHG Venous Blood HCO3 19 L 22-28 MMOL/L Urine Color YELLOW Urine Clarity CLEAR Urine pH 5.0 5-9 Urine Specific [place] 1.010 L 1.016-1.022 Urine Protein NEGATIVE NEGATIVE Urine Glucose (UA) 3+ H NEGATIVE Urine Ketones 1+ H NEGATIVE Urine Nitrite NEGATIVE NEGATIVE Urine Bilirubin NEGATIVE NEGATIVE Urine Urobilinogen 0.2 < = 1.0 MG/DL Urine Leukocyte Esterase NEGATIVE NEGATIVE Urine RBC (Auto) NEGATIVE NEGATIVE Urine RBC NONE /HPF Urine WBC NONE /HPF Urine Squamous Epithelial Cells 0-2 /HPF Urine Crystals NONE /LPF Urine Bacteria NEGATIVE /HPF Urine Casts NONE /LPF Urine Mucus NEGATIVE /LPF Urine Culture Indicated NO Test 03/29/23 00:55 03/29/23 05:47 Range/Units White Blood Count 10.2 4.3-11.0 10^3/uL Red Blood Count 4.48 4.30-5.52 10^6/uL Hemoglobin 14.0 13.3-17.7 g/dL Hematocrit 40 40-54 % Mean Corpuscular Volume 89 80-99 fL Mean Corpuscular Hemoglobin 31 25-34 pg Mean Corpuscular Hemoglobin Concent 35 32-36 g/dL Red Cell Distribution Width 12.0 10.0-14.5 % Platelet Count 242 130-400 10^3/uL Mean Platelet Volume 10.8 9.0-12.2 fL Immature Granulocyte % (Auto) 1 % Neutrophils (%) (Auto) 88 H 42-75 % Lymphocytes (%) (Auto) 10 L 12-44 % Monocytes (%) (Auto) 1 0-12 % Eosinophils (%) (Auto) 0 0-10 % Basophils (%) (Auto) 0 0-10 % Neutrophils # (Auto) 9.0 H 1.8-7.8 10^3/uL Lymphocytes # (Auto) 1.0 1.0-4.0 10^3/uL Monocytes # (Auto) 0.1 0.0-1.0 10^3/uL Eosinophils # (Auto) 0.0 0.0-0.3 10^3/uL Basophils # (Auto) 0.0 0.0-0.1 10^3/uL Immature Granulocyte # (Auto) 0.1 0.0-0.1 10^3/uL Sodium Level 140 135-145 MMOL/L Potassium Level 4.0 3.6-5.0 MMOL/L Chloride Level 110 H 98-107 MMOL/L Carbon Dioxide Level 17 L 21-32 MMOL/L Anion Gap 13 5-14 MMOL/L Blood Urea Nitrogen 19 H 7-18 MG/DL Creatinine 1.05 0.60-1.30 MG/DL Estimat Glomerular Filtration Rate 82 BUN/Creatinine Ratio 18 Glucose Level 291 H 70-105 MG/DL Calcium Level 9.1 8.5-10.1 MG/DL Corrected Calcium 9.3 8.5-10.1 MG/DL Phosphorus Level 1.7 L 2.3-4.7 MG/DL Magnesium Level 1.7 1.6-2.4 MG/DL Total Bilirubin 0.2 0.1-1.0 MG/DL Aspartate Amino Transf (AST/SGOT) 30 5-34 U/L Alanine Aminotransferase (ALT/SGPT) 20 0-55 U/L Alkaline Phosphatase 59 40-136 U/L Troponin I 2.234 *H <0.028 NG/ML Total Protein 6.5 6.4-8.2 GM/DL Albumin 3.7 3.2-4.5 GM/DL Triglycerides Level 217 H <150 MG/DL Cholesterol Level 257 H < 200 MG/DL LDL Cholesterol Direct 209 H 1-129 MG/DL VLDL Cholesterol 43 H 5-40 MG/DL HDL Cholesterol 38 L 40-60 MG/DL Glucometer 210 H 70-110 MG/DL Physical Exam Physical Exam Vital Signs Vital Signs - First Documented 03/28/23 03/28/23 19:45 21:24 Temp 36.6 Pulse 113 Resp 16 B/P (MAP) 152/105 (121) Pulse Ox 95 O2 Delivery Room Air O2 Flow Rate 3.00 Capillary Refill : Less Than 3 Seconds Height, Weight, BMI Height: '" Weight: lbs. oz. kg; 35.33 BMI Method:Actual General Appearance: No Apparent Distress, WD/WN Eyes: Bilateral Eye Normal Inspection, Bilateral Eye PERRL, Bilateral Eye EOMI HEENT: PERRL/EOMI, TMs Normal, Normal ENT Inspection, Pharynx Normal, Moist Mucous Membranes Neck: Full Range of Motion, Normal Inspection, Supple, Tender Lateral Respiratory: Lungs Clear, Normal Breath Sounds, No Accessory Muscle Use, No Respiratory Distress Cardiovascular: Regular Rate, Rhythm, No Edema Gastrointestinal: Normal Bowel Sounds, No Organomegaly, No Pulsatile Mass, Non Tender, Soft Back: Normal Inspection, No CVA Tenderness, No Vertebral Tenderness Extremity: Normal Inspection, Normal Range of Motion Neurologic/Psychiatric: Alert, Oriented x3, No Motor/Sensory Deficits Skin: Normal Color, Warm/Dry Lymphatic: No Adenopathy A/P-Cardiology Admission Diagnosis Non-ST elevation myocardial infarction Coronary artery disease Congestive heart failure Hypertension Hyperlipidemia Diabetes mellitus Assessment/Plan Non-ST elevation myocardial infarction Planning to proceed with cardiac catheterization possible PTCA Coronary artery disease, abnormal EKG. Echocardiogram showed dilated left ventricle with hypokinesia in the anterior wall anterior septum and inferior wall. Planning for cardiac catheterization today Congestive heart failure, acute left ventricular systolic dysfunction, probably ischemic in nature Starting beta-blockers and Entresto and Jardiance Hypertension, monitor blood pressure Hyperlipidemia, starting Lipitor 80 mg daily Diabetes mellitus, poor control. Clinical Quality Measures AMI/AHF: ASA po Prior to arrival: No NU SINGH MD Mar 29, 2023 08:56
--- NOTE | 2023-03-29 08:57 | Cardiac Procedure Note-CS/ASA ---
Pre-Procedure Note Pre-Op Procedure Note Date of Available H&P: Mar 29, 2023 Date H&P Reviewed: Mar 29, 2023 Time H&P Reviewed: 08:57 History & Physical: H&P Reviewed, Patient Examed, No changes noted Pre-Operative Diagnosis: NSTMI Moderate Sedation PreProcedure Time 08:57 ASA Score 3 Airway Lungs Heart ASA score ASA 1: a normal healthy patient ASA 2: a patient with a mild systemic disease (mid diabetes, controlled hypertension, obesity ASA 3: a patient with a severe systemic disease that limits activity (angina, COPD, prior Myocardial infarction) ASA 4: a patient with an incapacitating disease that is a constant threat to life (CHF, renal failure) ASA 5: a moribund patient not expected to survive 24 hrs. (ruptured aneurysm) ASA 6: a declared brain- patient whose organs are being harvested. For emergent operations, add the letter E after the classification Mallampati Classification Grade 3 Sedation Plan Analgesia, Amnesia, Plan communicated to team members, Discussed options with patient/fam, Discussed risks with patient/fam The patient is an appropriate candidate to undergo the planned procedure, sedation, and anesthesia. The patient immediately re-assessed prior to indication. NU SINGH MD Mar 29, 2023 08:57
[2023-03-29] MEDS ORDERED: ASPIRIN enteric coated 81MG TABLET PO SCH (09:00)
[2023-03-29] MEDS ORDERED: ENOXAPARIN 100 MG/1 ML SYRINGE SC SCH (09:00)
--- NOTE | 2023-03-29 09:25 | History & Physical-Hospitalist ---
History of Present Illness HPI/Chief Complaint Male with a past medical history of diabetes who presented to the emergency department due to chest pain. He states symptoms have been ongoing for couple of weeks. He describes it as right-sided chest pain and a pressure that radiates to his shoulder and his neck. He was seen by a chiropractor 4 times and had adjustments but did not think that it was helping. He would take Tylenol and ibuprofen with minimal relief. He saw his primary care PA yesterday and was prescribed pain medicine but by the time he got to the pharmacy it was closed he was unable to pick it up. His pain continued to worsen so he decided to seek evaluation in the emergency department. His troponin was found to be elevated and he was admitted for further management. He had had persistent chest pain throughout the night and was started on a nitro drip by Dr. Phan. He reports that his blood sugar is normally well controlled but has been high the past couple of days. Source: patient Date Seen 03/29/23 Time Seen by a Provider: 07:45 Attending Physician Thuan Goodman PCP Admitting Physician: Aroldo Reyes MD Attending Physician: Aroldo Reyes MD Referring Physician Date of Admission Mar 28, 2023 at 22:42 Home Medications & Allergies Home Medications Reviewed patient Home Medication Reconciliation performed by pharmacy medication reconciliations foundry technician and/or nursing. Patients Allergies have been reviewed. Allergies Allergies Coded Allergies No Known Drug Allergies (Unverified12/09/20) Past Rqwamfq-Mbclqw-Lyhfss Hx Patient Social History Marrital Status: Employed/Student: employed Tobacco Use?: Yes Tobacco type used: Cigars Smoking Status: Light Tobacco Smoker Smokeless Tobacco Frequency: Light User Use of E-Cig and/or Vaping dev: No Substance use?: No Additional substance use comme: DENIES Alcohol Use?: No Additional alcohol type: DENIES Pt feels they are or have been: Yes Immunizations Up To Date Second COVID19 Vaccination Matthias: 03/27/21 Tetanus Booster (TDap): Less Than 5 Years Current Status Advance Directives: No Communicates: Verbally Primary Language: Martiniquais Preferred Spoken Language: Martiniquais Is interpretation needed?: No Family Medical History Heart Disease Review of Systems Constitutional: see HPI Physical Exam Physical Exam Vital Signs Vital Signs - First Documented 03/28/23 03/28/23 19:45 21:24 Temp 36.6 Pulse 113 Resp 16 B/P (MAP) 152/105 (121) Pulse Ox 95 O2 Delivery Room Air O2 Flow Rate 3.00 Capillary Refill : Less Than 3 Seconds Height, Weight, BMI Height: '" Weight: lbs. oz. kg; 35.33 BMI Method:Actual General Appearance: No Apparent Distress, Obese Respiratory: Lungs Clear, No Respiratory Distress Cardiovascular: Regular Rate, Rhythm, No Murmur Gastrointestinal: Normal Bowel Sounds, Soft Extremity: No Calf Tenderness, No Pedal Edema Neurologic/Psychiatric: Alert, Oriented x3, Normal Mood/Affect Results Results/Procedures Labs Laboratory Tests 03/28/23 19:57 03/29/23 00:55 Patient resulted labs reviewed. 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
[2023-03-29] MEDS ORDERED: NS IV 1000 ML 1,000 ML IV SCH (09:30)
--- NOTE | 2023-03-29 09:33 | Cardiac Cath Report ---
Cardiac Cath Report Physician (s)/Manager Rn (s) Physician NU SINGH MD Pre-Procedure Diagnosis Pre-Procedure Diagnosis: NSTMI Post-Procedure Note Procedure Start Date: Mar 29, 2023 Name of Procedure: Left heart catheterization Aortic arch angiogram Findings/Procedure Note PROCEDURE NOTE: 57-year-old gentleman with diabetes mellitus, hypertension and hyperlipidemia, admitted with non-ST elevation myocardial infarction, cardiac catheterization wa s advised. After explaining the procedure to the patient, all pros and cons were explained, all questions were answered. The patient signed the consent and then he was placed in the cardiac catheterization laboratory. Groin was prepped in SL fashion local anesthesia was used. Sheath placed in the right radial artery, Parks catheter was advanced to the left ventricular cavity, pressure was measured no left ventriculogram was done, pullback LV to aorta was done, engage the right and left coronary system, multiple views were obtained. Pulled back to the aortic arch and I performed aortic arch in preparation for referral for bypass surgery. At the end of the procedure the sheath was removed. Vascular band was applied FINDINGS: Hemodynamics LV 101/20, end-diastolic pressure of 20 Aorta 101/75 mean of 80 ANATOMY: Left Main is free of obstructive disease Left Anterior Descending has 95% stenosis proximally. 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 We will wean him off nitroglycerin. Starting Coreg, Entresto and Jardiance and Lipitor We will arrange for transfer for CABG Final diagnosis: Non-ST elevation myocardial infarction Coronary artery disease Congestive heart failure, acute ischemic left ventricular systolic dysfunction Hypertension Hyperlipidemia Diabetes mellitus Anesthesia Type: Conscious Sedation Estimated blood loss (mL): 10 ml Contrast Amount: 44 ml Total Radiation Dose: 673 mGy Post-Procedure Diagnosis Post-operative diagnosis: Non-ST elevation myocardial infarction Coronary artery disease Congestive heart failure, acute dilated left ventricular systolic dysfunction, ischemic cardiomyopathy Hypertension Hyperlipidemia Diabetes mellitus NU SINGH MD Mar 29, 2023 09:33
--- NOTE | 2023-03-29 10:20 | Short Stay Summary-Hospitalist ---
History of Present Illness Date Seen 03/29/23 Attending Physician Thuan Goodman PCP Admitting Physician: Aroldo Reyes MD Attending Physician: Aroldo Reyes MD Referring Physician Date of Admission Mar 28, 2023 at 22:42 Home Medications & Allergies Home Medications Reviewed patient Home Medication Reconciliation performed by pharmacy medication reconciliations catheterization laboratory technician and/or nursing. Patients Allergies have been reviewed. Allergies Allergies Coded Allergies No Known Drug Allergies (Unverified12/09/20) Past Amyfmyp-Lmqenb-Asdxna Hx Patient Social History Marrital Status: Employed/Student: employed Tobacco Use?: Yes Tobacco type used: Cigars Smoking Status: Light Tobacco Smoker Smokeless Tobacco Frequency: Light User Use of E-Cig and/or Vaping dev: No Substance use?: No Additional substance use comme: DENIES Alcohol Use?: No Additional alcohol type: DENIES Pt feels they are or have been: Yes Immunizations Up To Date Second COVID19 Vaccination Matthias: 03/27/21 Tetanus Booster (TDap): Less Than 5 Years Current Status Advance Directives: No Communicates: Verbally Primary Language: Tanzanian Preferred Spoken Language: Tanzanian Is interpretation needed?: No Family Medical History Heart Disease Physical Exam Physical Exam Vital Signs Vital Signs - First Documented 03/28/23 03/28/23 19:45 21:24 Temp 36.6 Pulse 113 Resp 16 B/P (MAP) 152/105 (121) Pulse Ox 95 O2 Delivery Room Air O2 Flow Rate 3.00 Capillary Refill : Less Than 3 Seconds Height, Weight, BMI Height: '" Weight: lbs. oz. kg; 35.33 BMI Method:Actual General Appearance: No Apparent Distress, WD/WN Eyes: Bilateral Eye Normal Inspection, Bilateral Eye PERRL, Bilateral Eye EOMI HEENT: PERRL/EOMI, TMs Normal, Normal ENT Inspection, Pharynx Normal, Moist Mucous Membranes Neck: Full Range of Motion, Normal Inspection, Supple, Tender Lateral Respiratory: Lungs Clear, Normal Breath Sounds, No Accessory Muscle Use, No Respiratory Distress Cardiovascular: Regular Rate, Rhythm, No Edema Gastrointestinal: Normal Bowel Sounds, No Organomegaly, No Pulsatile Mass, Non Tender, Soft Back: Normal Inspection, No CVA Tenderness, No Vertebral Tenderness Extremity: Normal Inspection, Normal Range of Motion Neurologic/Psychiatric: Alert, Oriented x3, No Motor/Sensory Deficits Skin: Normal Color, Warm/Dry Lymphatic: No Adenopathy Results Results/Procedures Labs Laboratory Tests 03/28/23 19:57 03/29/23 00:55 Patient resulted labs reviewed. Clinical Quality Measures AMI/AHF: ASA po Prior to arrival: DARLIN Uribe MD Mar 29, 2023 10:20
[2023-03-29] MEDS ORDERED: METF-397 PO (10:46)
[2023-03-29] MEDS ORDERED: IBUP-2473 PO (10:46)
[2023-03-29] MEDS ORDERED: ACET-2267 PO (10:46)
--- NOTE | 2023-03-29 11:11 | Tele-ICU Progress Note ---
Subjective Date Seen by a Provider: Mar 29, 2023 Time Seen by a Provider: 11:10 Subjective/Events-last exam (Tele-ICU Physician , consultation as per request of PCP Service provided via interactive audio and video telecommunications E-CARE system to a patient admitted to ICU bed in [facility]. Available chart/ vitals / labs / Images reviewed H&P is from ER notes Patient's information available about PMH, Shx, Fhx allergy reviewed inEMR. ROS as per chart and RN report Now in ICU, hemodynamically stable Video assessment done using teleICU camera, rest of exam as per RN Discussed with RN. Hospital course: (03/28) 57yr old male admitted a NSTEMI/CHF, SNEHAL, Hyperglycemia-close to DKA but gap ok (03/29) Blood sugar better A/P NSTEMI<,CAD, ICM Congestive heart failure, acute dilated left ventricular systolic dysfunction, ischemic cardiomyopathy - as per cards - weaning off NTG gtt SNEHAL - improved Hyperglycemia - better Plans in collaboration with bedside consultants and IM MDs. Discussed with RN to reach out if any questions or concerns A total of 10 minutes of critical care time was devoted to this patient today, required to treat and/or prevent further deterioration of critical care condition ( as above ) . I am remotely monitoring this patient from another state. I am unable to do the bedside exam, and history/physical and pertinent information is taken from other notes in the computer and bedside staff. . Sepsis Event Evaluation Height, Weight, BMI Height: '" Weight: lbs. oz. kg; 35.33 BMI Method:Actual Exam Exam Patient acknowledged, consented, and participated in this virtual visit which was conducted using real time audio/video Vital Signs Date Time Temp Pulse Resp B/P (MAP) Pulse Ox O2 Delivery O2 Flow Rate FiO2 03/29/23 10:30 82 20 98/70 (79) 93 Nasal Cannula 3.00 03/29/23 10:15 80 15 103/72 (81) 93 Nasal Cannula 3.00 03/29/23 10:00 87 27 99/73 (79) 93 Nasal Cannula 3.00 03/29/23 09:50 82 106/68 (82) Nasal Cannula 3.00 03/29/23 08:38 Nasal Cannula 3.00 03/29/23 08:37 Nasal Cannula 3.00 8/25/23 08:35 97 Nasal Cannula 5.00 03/29/23 08:00 85 22 104/72 (81) 95 Nasal Cannula 2.00 03/29/23 07:52 36.6 03/29/23 07:00 78 03/29/23 07:00 76 19 113/77 (91) 95 Nasal Cannula 2.00 03/29/23 06:00 86 25 106/73 (84) 99 Nasal Cannula 2.00 03/29/23 05:00 82 17 100/61 (74) 95 Nasal Cannula 2.00 03/29/23 04:00 83 25 123/79 (94) 96 Nasal Cannula 2.00 03/29/23 04:00 Nasal Cannula 2.00 03/29/23 03:50 36.2 03/29/23 03:00 91 23 116/81 (93) 95 Nasal Cannula 2.00 03/29/23 02:13 90 107/70 03/29/23 02:00 86 18 107/70 (82) 97 Nasal Cannula 2.00 03/29/23 01:00 87 03/29/23 01:00 89 16 120/73 (89) 99 Nasal Cannula 2.00 03/29/23 00:30 89 15 113/81 (92) 96 Nasal Cannula 2.00 03/29/23 00:00 36.4 03/29/23 00:00 94 26 114/81 (92) 96 Nasal Cannula 2.00 03/28/23 23:59 Nasal Cannula 2.00 03/28/23 23:30 100 22 118/77 (91) 96 Nasal Cannula 2.00 03/28/23 23:15 104 125/83 (97) 98 Nasal Cannula 2.00 03/28/23 23:13 36.3 100 16 129/87 (101) 93 Nasal Cannula 2.00 2.00 03/28/23 23:00 100 03/28/23 23:00 99 119/78 (92) 98 Nasal Cannula 2.00 03/28/23 22:58 Nasal Cannula 2.00 03/28/23 22:52 36.3 105 129/87 (101) Nasal Cannula 2.00 03/28/23 22:29 36.6 99 16 110/65 93 Nasal Cannula 4.00 03/28/23 21:24 Nasal Cannula 3.00 03/28/23 19:45 36.6 113 16 152/105 (121) 95 Room Air 03/28/23 19:45 Room Air I & O 03/29/23 07:00 Intake Total 1600 ml Output Total 800 ml Balance 800 ml Height & Weight Height: '" Weight: lbs. oz. kg; 35.33 BMI Method:Actual General Appearance: No Apparent Distress, WD/WN HEENT: PERRL/EOMI, TMs Normal, Normal ENT Inspection, Pharynx Normal, Moist Mucous Membranes Neck: Full Range of Motion, Normal Inspection, Supple, Tender Lateral Respiratory: Lungs Clear, Normal Breath Sounds, No Accessory Muscle Use, No Respiratory Distress Cardiovascular: Regular Rate, Rhythm, No Edema Capillary Refill: Less Than 3 Seconds Gastrointestinal: normal bowel sounds, non tender, soft Extremity: Normal Inspection, Normal Range of Motion Neurologic/Psychiatric: Alert, Oriented x3, No Motor/Sensory Deficits Skin: Normal Color, Warm/Dry Lymphatic: No Adenopathy Results Lab Laboratory Tests 03/28/23 19:57 03/29/23 00:55 Assessment/Plan Assessment/Plan 1 JOSE L PAUL MD Mar 29, 2023 11:11
--- NOTE | 2023-03-29 12:16 | Discharge Summary ---
Diagnosis/Chief Complaint Date of Admission Mar 28, 2023 at 22:42 Date of Discharge Discharge Date: Mar 29, 2023 Admission Diagnosis NSTEMI Primary Care Thuan Goodman Discharge Diagnosis (1) Non-insulin dependent type 2 diabetes mellitus (2) NSTEMI (non-ST elevated myocardial infarction) Discharge Summary Discharge Physical Exam Allergies: Coded Allergies: No Known Drug Allergies (Unverified , 12/09/20) Vitals & I&Os Vital Signs Date Time Temp Pulse Resp B/P (MAP) Pulse Ox O2 Delivery O2 Flow Rate FiO2 03/29/23 11:00 85 19 106/75 (85) 94 Nasal Cannula 3.00 03/29/23 07:52 36.6 General Appearance: No Apparent Distress, WD/WN Respiratory: Lungs Clear Cardiovascular: Regular Rate, Rhythm, No Murmur Neurologic/Psychiatric: Alert, Oriented x3 Hospital Course NSTEMI troponin elevated on arrival and has continued to trend up Pain resolved with nitro gtt Concerning for cardiac source Cardiology consulted, took to labor custodian severe multivessel disease Dr Phan arranged transfer to [place] for CABG eval Echo shows EF of 30% Labs (last 24 hrs) Laboratory Tests 03/28/23 19:57: White Blood Count 9.6, Red Blood Count 4.67, Hemoglobin 14.5, Hematocrit 42, Mean Corpuscular Volume 90, Mean Corpuscular Hemoglobin 31, Mean Corpuscular Hemoglobin Concent 35, Red Cell Distribution Width 12.0, Platelet Count 245, Mean Platelet Volume 10.8, Immature Granulocyte % (Auto) 1, Neutrophils (%) (Auto) 89H, Lymphocytes (%) (Auto) 10L, Monocytes (%) (Auto) 1, Eosinophils (%) (Auto) 0, Basophils (%) (Auto) 0, Neutrophils # (Auto) 8.5H, Lymphocytes # (Auto) 0.9L, Monocytes # (Auto) 0.1, Eosinophils # (Auto) 0.0, Basophils # (Auto) 0.0, Immature Granulocyte # (Auto) 0.1, Neutrophils % (Manual) 91, Lymp hocytes % (Manual) 6, Band Neutrophils 3, Platelet Estimate ADEQUATE, Blood Morphology Comment NORMAL, Sodium Level 138, Potassium Level 5.0, Chloride Level 108H, Carbon Dioxide Level 17L, Anion Gap 13, Blood Urea Nitrogen 19H, Creatinine 1.47H, Estimat Glomerular Filtration Rate 55, BUN/Creatinine Ratio 13, Glucose Level 557*H, Calcium Level 8.8, Corrected Calcium 8.9, Magnesium Level 1.8, Total Bilirubin 0.3, Aspartate Amino Transf (AST/SGOT) 14, Alanine Aminotransferase (ALT/SGPT) 19, Alkaline Phosphatase 66, Troponin I 0.044H, Total Protein 6.9, Albumin 3.9, Lipase 12 03/28/23 20:20: Prothrombin Time 12.9, INR Comment 1.0, Activated Partial Thromboplast Time 24 03/28/23 20:56: Venous Blood pH 7.38, Venous Blood Partial Pressure CO2 32L, Venous Blood HCO3 19L 03/28/23 21:13: Urine Color YELLOW, Urine Clarity CLEAR, Urine pH 5.0, Urine Specific Goldonna 1.010L, Urine Protein NEGATIVE, Urine Glucose (UA) 3+H, Urine Ketones 1+H, Urine Nitrite NEGATIVE, Urine Bilirubin NEGATIVE, Urine Urobilinogen 0.2, Urine Leukocyte Esterase NEGATIVE, Urine RBC (Auto) NEGATIVE, Urine RBC NONE, Urine WBC NONE, Urine Squamous Epithelial Cells 0-2, Urine Crystals NONE, Urine Bacteria NEGATIVE, Urine Casts NONE, Urine Mucus NEGATIVE, Urine Culture Indicated NO 03/29/23 00:55: White Blood Count 10.2, Red Blood Count 4.48, Hemoglobin 14.0, Hematocrit 40, Mean Corpuscular Volume 89, Mean Corpuscular Hemoglobin 31, Mean Corpuscular Hemoglobin Concent 35, Red Cell Distribution Width 12.0, Platelet Count 242, Mean Platelet Volume 10.8, Immature Granulocyte % (Auto) 1, Neutrophils (%) (Auto) 88H, Lymphocytes (%) (Auto) 10L, Monocytes (%) (Auto) 1, Eosinophils (%) (Auto) 0, Basophils (%) (Auto) 0, Neutrophils # (Auto) 9.0H, Lymphocytes # (Auto) 1.0, Monocytes # (Auto) 0.1, Eosinophils # (Auto) 0.0, Basophils # (Auto) 0.0, Immature Granulocyte # (Auto) 0.1, Sodium Level 140, Potassium Level 4.0, Chloride Level 110H, Carbon Dioxide Level 17L, Anion Gap 13, Blood Urea Nitrogen 19H, Creatinine 1.05, Estimat Glomerular Filtration Rate 82, BUN/Creatinine Ratio 18, Glucose Level 291H, Calcium Level 9.1, Corrected Calcium 9.3, Phosphorus Level 1.7L, Magnesium Level 1.7, Total Bilirubin 0.2, Aspartate Amino Transf (AST/SGOT) 30, Alanine Aminotransferase (ALT/SGPT) 20, Alkaline Phosphatase 59, Troponin I 2.234*H, Total Protein 6.5, Albumin 3.7, Triglycerides Level 217H, Cholesterol Level 257H, LDL Cholesterol Direct 209H, VLDL Cholesterol 43H, HDL Cholesterol 38L 03/29/23 05:47: Glucometer 210H Patient resulted labs reviewed. Pending Labs Laboratory Tests 03/29/23 05:47: Glucometer 210 Discussion & Recommendations Discharge Planning: <30 minutes discharge planning Discharge Home Medications: Active Scripts Active Reported Ibuprofen 200 Mg Tablet 400 Mg PO Q8H PRN Tylenol Extra Strength (Acetaminophen) 500 Mg Tablet 1,000 Mg PO Q8H PRN Metformin HCl 500 Mg Tablet 500 Mg PO BID Instructions to patient/family Please see electronic discharge instructions given to patient. Clinical Quality Measures AMI/AHF: ASA po Prior to arrival: DARLIN Uribe MD Mar 29, 2023 12:16
[2023-03-29] MEDS ORDERED: SACUBITRIL/VALSARTAN 24/26 MG TABLET PO SCH (21:00)
[2023-03-29] MEDS ORDERED: carvediloL 3.125 MG TABLET PO SCH (21:00)
[2023-03-30] MEDS ORDERED: EMPAGLIFLOZIN 10 MG TABLET PO SCH (09:00)
== END 2023-03-29 11:10 | disposition short-term general hospital (02) | DRG 280 ==
LOC: EDUNIT# 19:41 → ER 19:42 → ICU 22:42
PROVIDERS: ADMIT Internal Medicine; ATTEND Internal Medicine
PROC: 4A023N7 Measurement of Cardiac Sampling and Pressure, Left Heart, Percutaneous Approach (ICD-10-PCS; principal; 2023-03-29)
PROC: B2111ZZ Fluoroscopy of Multiple Coronary Arteries using Low Osmolar Contrast (ICD-10-PCS; 2023-03-29)
PROC: B3101ZZ Fluoroscopy of Thoracic Aorta using Low Osmolar Contrast (ICD-10-PCS; 2023-03-29)
DX: I21.4 Non-ST elevation (NSTEMI) myocardial infarction (principal); I50.21 Acute systolic (congestive) heart failure; N17.9 Acute kidney failure, unspecified; I25.10 Atherosclerotic heart disease of native coronary artery without angina pectoris; I25.5 Ischemic cardiomyopathy; I11.0 Hypertensive heart disease with heart failure; E11.65 Type 2 diabetes mellitus with hyperglycemia; E78.5 Hyperlipidemia, unspecified; F17.290 Nicotine dependence, other tobacco product, uncomplicated; Z79.1 Long term (current) use of non-steroidal anti-inflammatories (NSAID); Z79.84 Long term (current) use of oral hypoglycemic drugs; Z79.899 Other long term (current) drug therapy
CPT/HCPCS: 36221; 36415; 71045; 72125; 80053; 80061; 81000; 82805; 82947; 83690; 83735; 84100; 84484; 85007; 85025; 85027; 85610; 85730; 87081; 93005; 93041; 93306; 93458

== ENCOUNTER 2023-05-31 08:47 | Inpatient (IN) | payer OTHER ==
[~2023-05-31] VITALS: Ht 177 cm; Wt 108.6 kg
--- NOTE | 2023-05-31 08:41 | PM&R Post Admission Assessment ---
PM&R HP Date of Visit: May 31, 2023 Time of Visit: 14:00 History of Present Illness CC: CVA HPI: 57 year old male, here for recovery from cardiac and neurological injuries. He was admitted to [place] on 03/29 for an NSTEMI and was found to have total occlusion of his bypass. He underwent CABG on 04/01 requiring a chest tube placement on 04/02. He had cardiogenic shock requiring 14 transfusions, vasopressors, inotropes, and mineralocorticoids. The hospital course was complicated by acute renal failure, acute liver failure, and acute respiratory failure. Renal failure required hemodialysis with HD catheter placement on 04/16. He had bilateral cerebral hemisphere strokes on 04/15 with an EEG showing encephalopathy with no seizure-like activity. He got a tracheostomy and PEG tube on 04/22. Patient pulled out his trach on 05/08 which was replaced with a #6 Shiley. He was on several IV antibiotics and IV micafungin until 05/23. His tracheostomy and PEG tube have since been removed. Patient denies any chest pain or SOB at this time. He is energetic and interacting well. He reports that prior to his hospitalization he was consuming caffeine pills and multiple energy drinks daily. He worked 18-22 hours a day and would stay awake for almost 3 days at a time. 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 PMH: T2DM, CAD, systolic CHF, HTN, HLD PSH: CABG x3 on 04/01, chest tube placement 04/02, PCI 04/05, HD catheter placement 04/16, tracheostomy 04/22 and replacement with #6 Shiley on 05/08, PEG tube 04/22, cardioversion 04/23 All: NKDA Meds: see med list SH: lives with at home has children who live nearby smokes 1 cigar every 3-4 days has 1 alcoholic drink occasionally typically consumes many caffeine products daily FH: CAD ROS: Denies chest pain, SOB. PE: Slightly tachycardic but no rubs, murmurs, or gallops. CTAB with no wh eezing. Peripheral UE and LE pulses are 2+ bilaterally. CABG site is healing well. Tracheostomy and PEG tube site are healing well. No hepatomegaly. No abdominal tenderness. Normal bowel sounds. Labs/Imaging: on 05/27 - Hgb 8.9, Hct 28.8, BUN 31, Cr 1.56, GFR 49, ALT 71, AST 96, total bilirubin 3.3, ALP 580 Assessment: CVA s/p CABG s/p acute renal, liver, and respiratory failure s/p cardiogenic shock s/p tracheostomy and PEG tube T2DM systolic CHF HTN HLD Plan: home meds supportive care PT/OT Past Xcrnlbb-Caecir-Kxreke Hx Past Med/Social Hx: Reviewed Nursing Past Med/Soc Hx, Reviewed and Corrections made Patient Social History Marrital Status: Employed/Student: employed Alcohol Use: Denies Use Smoking Status: Former Smoker Past Medical History Surgeries: Open Heart Surgery Cardiac: Coronary Artery Disease, High Cholesterol, Hypertension Family History Heart Disease PM&R Allergy/Meds/Data Review Allergies Coded Allergies: No Known Drug Allergies (Unverified , 12/09/20) Home Medications Scheduled Aspirin (Aspirin), 81 MG PO DAILY, (Reported) Cholecalciferol (Vitamin D3) (Vitamin D3), 50 MCG PO DAILY, (Reported) Folic Acid/Vitamin B Comp W-C (Yulisa-Kassidy Tablet), 0.8 MG PO DAILY, (Reported) Insulin Glargine,Hum.rec.anlog (Lantus), 10 UNIT SQ DAILY, (Reported) Insulin Lispro (Insulin Lispro), 0-14 UNIT SQ ACHS, (Reported) Lactobacillus Acidophilus/Pect (Acidophilus-Pectin Capsule), 1 EACH PO BID, (Reported) Midodrine HCl (Midodrine HCl), 5 MG PO BID, (Reported) Pantoprazole Sodium (Pantoprazole Sodium), 40 MG PO DAILY, (Reported) Polyethylene Glycol 3350 (Miralax), 17 GM PO DAILY, (Reported) Sennosides (Ex-Lax), 15 MG PO PRN, (Reported) Ticagrelor (Brilinta), 90 MG PO BID, (Reported) Scheduled PRN Docusate Sodium (Docusate Sodium), 100 MG PO BID PRN for CONSTIPATION-1ST LINE, (Reported) Lactulose (Lactulose), 20 GM PO Q8H PRN for CONSTIPATION-3RD LINE, (Reported) Current Medications Current Medications reviewed Review of Systems Constitutional: see HPI EENTM: no symptoms reported Respiratory: no symptoms reported Cardiovascular: no symptoms reported Gastrointestinal: no symptoms reported Genitourinary: no symptoms reported Musculoskeletal: back pain, joint pain Skin: no symptoms reported Psychiatric/Neurological: No Symptoms Reported All Other Systems Reviewed Negative Unless Noted: Yes Physical Exam Physical Exam Vital Signs Capillary Refill : Height, Weight, BMI Height: '" Weight: lbs. oz. kg; 35.33 BMI Method:Actual General Appearance: No Apparent Distress, WD/WN, Anxious, Chronically ill Eyes: Bilateral Eye Normal Inspection, Bilateral Eye PERRL HEENT: PERRL/EOMI, Normal ENT Inspection, Pharynx Normal Neck: Full Range of Motion, Normal Inspection, Non Tender, Supple, Carotid Bruit Respiratory: Chest Non Tender, Lungs Clear, Normal Breath Sounds, No Accessory Muscle Use, No Respiratory Distress Cardiovascular: Regular Rate, Rhythm, No Edema, No Gallop, No JVD, No Murmur, Normal Peripheral Pulses Gastrointestinal: Normal Bowel Sounds, No Organomegaly, No Pulsatile Mass, Non Tender, Soft Back: Normal Inspection, No CVA Tenderness, No Vertebral Tenderness Extremity: Normal Capillary Refill, Normal Inspection, Normal Range of Motion, Non Tender, No Calf Tenderness, No Pedal Edema Neurologic/Psychiatric: Alert, Oriented x3, Normal Mood/Affect, copy manager II-XII Norm as Tested, Abnormal Gait, Motor Weakness (subtle all extremities, impulsive) Skin: Normal Color, Warm/Dry Lymphatic: No Adenopathy PM&R Medical Assessment & Plan REHAB/MEDICAL ASSESSMENT AND PLAN: REHAB IMPAIRMENT GROUP: Bilateral involvement ETIOLOGIC DIAGNOSIS: Acute ischemic stroke of bilateral cerebral hemispheres The comorbidities that impact the patients function and/or functional outcome by: impulsiveness, cardiac dysfunction, debility REHAB PLAN: The patient is being admitted to our comprehensive inpatient rehabilitation facility and can tolerate the intensity of service consisting of at least: 180 minutes of therapy a day, 5 out of 7 days a week Rehab treatment will consist of: PT OT will focus on regaining function with the use of AD in order to return to baseline and increase stamina and ambulation The patient/family has a good understanding of our discharge process and will benefit from an interdisciplinary inpatient rehabilitation program. The patient has potential to make improvement and is in need of at least two of the following multidisciplinary therapies including but not limited to physical, occupational, speech, and prosthetics and orthotics. Additionally the patient will need services from respiratory, nutritional services, wound care, psychology, etc. (Customize this to each patient). Given the patients complex condition and risk of further medical complications, rehabilitation services cannot be safely or effectively provided at a lower level of care such as a snf facility. BARRIERS TO DISCHARGE: Impulsiveness ESTIMATED LOS: 7 days DISPOSITION: Home RELEVANT CHANGES SINCE PREADMISSION SCREENING: I have compared the patients medical and functional status at the time of the preadmission screening and there are: no changes PROGNOSIS: Good REHABILITATION GOALS: 1. PT OT will focus on regaining function with the use of AD in order to return to baseline and increase stamina and ambulation All the above goals were reviewed with the patient and he/she is in agreement. By signing this document, I acknowledge that I have personally performed a full physical examination on this patient within 24 hours of admission to this inpatient rehabilitation facility and have determined the patient to be able to tolerate the above course of treatment at an intensive level for a reasonable period of time. I will be completing a detailed individualized Plan of Care for this patient by day #4 of the patients stay based upon the Preadmission Screen, the Post-Admission Evaluation, and the therapy evaluations. Admission Dx/Comorbidities: (1) CVA (cerebral vascular accident) ICD Codes: I63.9 - Cerebral infarction, unspecified Assessment/Plan Assessment and Plan Assess & Plan/Chief Complaint Assessment: CVA s/p CABG s/p acute renal, liver, and respiratory failure s/p cardiogenic shock s/p tracheostomy and PEG tube T2DM systolic CHF HTN HLD SANDOR GARCES DO May 31, 2023 08:41
[~2023-05-31 08:47] MED LIST changes: +ACET-2267 PO; +ALPRAZolam 0.25 MG TABLET PO PRN; +CALCIUM CARBONATE 500 MG CHEW TABLET PO PRN; +DOCUSATE SODIUM 100 MG CAPSULE PO PRN; +IBUP-2473 PO; +LACTULOSE SYRUP 10GM/15ML 30ML UDC PO PRN; +LOPERAMIDE 2 MG CAPSULE PO PRN; +MELATONIN 3 MG TABLET PO PRN; +METF-397 PO; +ONDANSETRON 4 MG ORAL DISSOLVE TABLET PO PRN; +Sodium Phosphate/Sodium Biphosphate ADULT enema PR PRN; +diphenhydrAMINE 25 MG TABLET PO PRN; +guaiFENesin/CODEINE 10ML UDC PO PRN
--- NOTE | 2023-05-31 10:11 | Progress Note ---
JUAN ARCHULETA 05/31/23 1011: Progress Note CC: CVA HPI: 57 year old male, here for recovery from cardiac and neurological injuries. He was admitted to [place] on 03/29 for an NSTEMI and was found to have total occlusion of his bypass. He underwent CABG on 04/01 requiring a chest tube placement on 04/02. He had cardiogenic shock requiring 14 transfusions, vasopressors, inotropes, and mineralocorticoids. The hospital course was complicated by acute renal failure, acute liver failure, and acute respiratory failure. Renal failure required hemodialysis with HD catheter placement on 04/16. He had bilateral cerebral hemisphere strokes on 04/15 with an EEG showing encephalopathy with no seizure-like activity. He got a tracheostomy and PEG tube on 04/22. Patient pulled out his trach on 05/08 which was replaced with a #6 Shiley. He was on several IV antibiotics and IV micafungin until 05/23. His tracheostomy and PEG tube have since been removed. Patient denies any chest pain or SOB at this time. He is energetic and interacting well. He reports that prior to his hospitalization he was consuming caffeine pills and multiple energy drinks daily. He worked 18-22 hours a day and would stay awake for almost 3 days at a time. 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 PMH: T2DM, CAD, systolic CHF, HTN, HLD PSH: CABG x3 on 04/01, chest tube placement 04/02, PCI 04/05, HD catheter placement 04/16, tracheostomy 04/22 and replacement with #6 Shiley on 05/08, PEG tube 04/22, cardioversion 04/23 All: NKDA Meds: see med list SH: lives with at home has children who live nearby smokes 1 cigar every 3-4 days has 1 alcoholic drink occasionally typically consumes many caffeine products daily FH: CAD ROS: Denies chest pain, SOB. PE: Slightly tachycardic but no rubs, murmurs, or gallops. CTAB with no wheezing. Peripheral UE and LE pulses are 2+ bilaterally. CABG site is healing well. Tracheostomy and PEG tube site are healing well. No hepatomegaly. No abdominal tenderness. Normal bowel sounds. Labs/Imaging: on 05/27 - Hgb 8.9, Hct 28.8, BUN 31, Cr 1.56, GFR 49, ALT 71, AST 96, total bilirubin 3.3, ALP 580 Assessment: CVA s/p CABG s/p acute renal, liver, and respiratory failure s/p cardiogenic shock s/p tracheostomy and PEG tube T2DM systolic CHF HTN HLD Plan: home meds supportive care PT/OT DELMIS GARCES DO 05/31/232106: Supervisory-Addendum Brief Verification & Attestation Participated in pt care: history, MDM, physical Personally performed: exam, history, MDM, supervision of care Care discussed with: Medical Student Procedures: n/a Results interpretation: Verified all documentation Verification and Attestation of Medical Student E/M Service A medical student performed and documented this service in my presence. I re viewed and verified all information documented by the medical student and made modifications to such information, when appropriate. I personally performed the physical exam and medical decision making. Delmis Garces, May 31, 2023,21:07 JUAN ARCHULETA May 31, 2023 10:11 DELMIS GARCES DO May 31, 2023 21:07
[2023-05-31 11:31] VITALS: BP 114/72
[2023-05-31] MEDS ORDERED: ASPI-999 PO (11:43)
[2023-05-31] MEDS ORDERED: DOCU100C37 PO (11:44)
[2023-05-31] MEDS ORDERED: FOLI0.8T21 PO (11:44)
[2023-05-31] MEDS ORDERED: INSU100V6 SQ (11:45)
[2023-05-31] MEDS ORDERED: INSU100V45 SQ (11:46)
[2023-05-31] MEDS ORDERED: LACT1CAP76 PO (11:48)
[2023-05-31] MEDS ORDERED: LACT20SO2 PO (11:49)
[2023-05-31] MEDS ORDERED: MIDO5TAB3 PO (11:50)
[2023-05-31] MEDS ORDERED: PANT40TA52 PO (11:50)
--- OUTSIDE RECORDS SUMMARY | 2023-05-31 11:50 | XMS REPORT ---
Author Author Sammy CHINCHILLA [facility] Address [address] [place], [place] [id number] Care Team Providers Care Hat Lining Blocker Name Role Phone YADIEL CHINCHILLA PCP YADIEL CHINCHILLA PreferredProvider Allergies and Adverse Reactions Name Reaction Notes No known allergies Medications Active Name Start Date Estimated Completion Date SIG Comments METFORMIN 500MG TABLETS 02/20/2023 TAKE 1 TABLET(500 MG) BY MOUTH TWICE DAILY WITH THE MORNING AND EVENING MEAL Ozempic 0.25 mg or 0.5 mg (2 mg/3 mL) subcutaneous pen injector 03/28/2023 inject 0.5 mg by subcutaneous route once weekly on the same day of each week cyclobenzaprine oral tablet 10 mg 03/28/2023 1 tablet (10 mg) by oral route 3 times per day PRN spasm hydrocodone-acetaminophen 10-325 mg oral tablet 03/28/2023 take 1 tablet by o ral route every 6 hours as needed for pain Name Start Date Expiration Date SIG Comments Cipro 500 mg tablet 12/30/2020 01/09/2021 take 1 t ablet (500 mg) by oral route 2 times per day for 10 days Cialis 20 mg oral tablet 06/20/2021 06/20/2021 ayse e 1 tablet (20 mg) by oral route once daily for 0 day Xanax 0.5 mg oral tablet 04/13/2022 10/10/2022 1/2 to 1 twice daily as needed for anxiety SILDENAFIL 20MG (BLUE) 05/31/2022 07/18/2022 TAKE 1 TO 5 TABLETS BY MOUTH ONE DOSE ONE HOUR BEFORE SEXUAL ACTIVITY DIRECTED NO MORE THAN ONE DOSE PER DAY METFORMIN 500MG TABLETS 08/27/2022 02/23/2023 TAKE 1 TABLET(500 MG) BY MOUTH TWICE DAILY WITH THE MORNING AND EVENING MEAL penicillin V potassium 500 mg tablet 09/14/2022 09/24/2022 take 1 tablet (500 m g) by oral route 4 times per day for 10 days metformin 500 mg tablet 11/13/2022 02/11/2023 take 1 tablet (500 mg) by oral route 2 times per day with morning and evening meals for 90 days Problem List Description Status Onset Type 2 diabetes, diet controlled Active 01/01/2021 Erectile dysfunction, unspecified erectile dysfu nction type Active 01/01/2021 RIVERA (generalized anxiety disorder) Active 01/01/2021 Vital Signs Date Time BP-Sys(mm[Hg] BP-Jaki(mm[Hg]) HR(bpm) RR(rpm) Temp WT HT HC BMI BSA BMI Percentile O2 Sat(%) 2022 3:27: 00 PM 118 mm[Hg] 80 mm[Hg] 90 {beats}/ min 16 rpm 98.2 F 237 lbs 69 in 34.9 984 kg/m 2 2.28 77 m2 98 % 022 2:39: 00 PM 112 mm[Hg] 70 mm[Hg] 90 {beats}/ min 18 rpm 97.2 F 237 lbs 96 % 2021 11:03 :00 AM 108 mm[Hg] 70 mm[Hg] 106 {beats}/ min 16 rpm 98.2 F 233 lbs 96 % 022 2:30: 00 PM 124 mm[Hg] 88 mm[Hg] 84 {beats}/ min 18 rpm 97.9 F 239 lbs 69 in 35.2 938 kg/m 2 2.29 73 m2 95 % 06/26 1:39: 00 PM 130 mm[Hg] 80 mm[Hg] 88 {beats}/ min 16 rpm 98.2 F 235 .31 2 lbs 69 in 34.7 5 kg/m 2 2.28 m2 97 % 06/20 2:33: 00 PM 118 mm[Hg] 62 mm[Hg] 88 {beats}/ min 18 rpm 98 F 237 lbs 98 % Social History Name Description Comments Alcohol Never Use status used: Never Tobacco Never smoker Uses seatbelts History of Procedures Date Ordered Description Order Status 03/15/2021 12:00 AM ROUTINE VENIPUNCTURE Reviewed 04/05/2022 2:48 PM SCREEN DEPRESSION PERFORMED Rev iewed 04/05/2022 12:00 AM Decadron 8mg Injection Reviewe d 04/05/2022 12:00 AM Depo-Medrol 80mg Injection Rev iewed 04/05/2022 12:00 AM Toradol 30 Mg Injection Review ed 04/05/2022 12:00 AM THER/PROPH/DIAG INJ SC/IM Revi ewed 03/28/2023 12:00 AM Decadron 8mg Injection Review ed 03/28/2023 12:00 AM Toradol 30 Mg Injection Revie wed 03/28/2023 12:00 AM THER/PROPH/DIAG INJ SC/IM Rev iewed Results Summary Date and Description Results 04/05/2022 2:48 PM During the past abhilash h, have you been feeling depressed? NoDuring the past month, have you lost interest in usual activity? No History of Past Illness Name Date of Onset Comments Type 2 diabetes, diet controlled 01/01/2021 Erectile dysfunction, unspec ified erectile dysfunction type 01/01/2021 RIVERA (generalized anxiety disorder) 01/01/2021 Moderate Chronic Recurrent T ype 2 diabetes, diet controlled Dec 30 2020 9:28AM Erectile dysfunction, unspec ified erectile dysfunction type Dec 30 2020 9:28AM Flank pain Dec 30 2020 9:28AM Establishing care with new doctor, encounter for Dec 30 2020 9:28AM Mild Chronic Recurrent RIVERA ( generalized anxiety disorder) Dec 30 2020 9:28AM Stress at work Dec 30 2020 9:28AM Medication care plan discussed with patient Dec 30 2020 9:28AM Type 2 diabetes, diet controlled Mar 15 2021 8: 52AM Screening for prostate cancer Mar 15 2021 8:52A M Erectile disorder, acquired, generalized, modera te Mar 15 2021 8:52AM Umbilical hernia without obs truction and without gangrene Jun 20 2021 2:34PM Occult blood in stools Jun 20 2021 2:34PM Laceration without foreign b mary of left forearm, subsequent encounter Jun 20 2021 2:34PM Ventral hernia without obstruction or gangrene N ov 2020 1:40PM Encounter for screening for malignant neoplasm o f colon Jun 26 2021 1:40PM Encounter for screening for malignant neoplasm o f rectum Jun 26 2021 1:40PM Ventral hernia without obstruction or gangrene D ec 2020 2:50PM Encounter for screening for malignant neoplasm o f colon Jul 26 2021 2:50PM Encounter for screening for malignant neoplasm o f rectum Jul 26 2021 2:50PM Other specified postprocedural states Aug 09 2:30PM Personal history of other di seases of the digestive system Aug 09 2021 2:30PM Other specified postprocedural states Aug 09 2:30PM Personal history of other di seases of the digestive system Aug 09 2021 2:30PM Colon polyps Aug 09 2021 2:30PM Laceration without foreign b mary of left forearm, subsequent encounter Aug 23 2021 11:04AM Laceration of unspecified mu scles, fascia and tendons at forearm level, left arm, subsequent encounter Aug 23 2021 11:04AM Pain management Aug 23 2021 11:04AM Lumbago with sciatica, left side Sep 2021 2: 48PM Laceration of unspecified mu scles, fascia and tendons at forearm level, left arm, subsequent encounter Sep 2021 2:48PM Wrist weakness Sep 2021 2:48PM Acute pain of right shoulder Mar 28 2023 3:28PM Type 2 diabetes, diet controlled Mar 28 2023 3: 28PM Payers Insurance Name Company Name Plan Name Plan Number Policy Number Policy Group Number Start Date [employer] [id number] N/A History of Encounters Visit Date Visit Type Provider 03/28/2023 Office visit YADIEL JONES 04/05/2022 Office visit YADIEL JONES 08/22/2021 Office visit YADIEL JONES 08/09/[address] Dany Villalta MD 07/27/[address] Dany Villalta MD 07/18/[address] Dany Villalta MD 06/26/[address] Dany Villalta MD 06/20/2021 Office visit YADIEL JONES 03/15/2021 Laboratory YADIEL JONES 12/30/2020 Office visit YADIEL JONES
--- OUTSIDE RECORDS SUMMARY | 2023-05-31 11:50 | XMS REPORT ---
Author Author Sammy CHINCHILLA [facility] Address [address] [place], [place] [id number] Care Team Providers Care Faucet Polisher Name Role Phone YADIEL CHINCHILLA PCP YADIEL [...] Policy Group Number Start Date [employer] [id number] N/A History of Encounters Visit Date Visit [...]
[2023-05-31] MEDS ORDERED: POLY17PO6 PO (11:51)
[2023-05-31] MEDS ORDERED: TICA90TA PO (11:52)
[2023-05-31] MEDS ORDERED: CHOL-34 PO (11:53)
[2023-05-31] MEDS: DOCUSATE SODIUM 100 MG CAPSULE PO SCH ×2 (11:59→20:59)
[2023-05-31] MEDS: SENNA W/DOCUSATE TABLET PO SCH ×2 (11:59→21:00)
--- NOTE | 2023-05-31 12:00 | Occupational Therapy Eval ---
OT Evaluation-General/PLF Medical Diagnosis Admission Date May 31, 2023 at 11:18 Medical Diagnosis: CVA Onset Date: Mar 29, 2023 Therapy Diagnosis Therapy Diagnosis: decreased ADL status, weakness Precautions Precautions/Isolations: Fall Prevention, Standard Precautions Comments Sternal precautions, 6lb limit Referral Physician: Kirstin Referral Reason: Evaluation/Treatment Medical History Additional Medical History DM2, CAD, CHF, HTN, HLD, NSTEMI 03/29/23, Heart cath, CABG 04/01, liver failure, respiratory failure, b/l cerebral hemisphere strokes 04/15/23, kidney failure, afib s/p cardioversion 04/23/23, hernia repair Current History 03/29/23 admitted to [facility] with cardiogenic shock, heart failure, CAD post CABG 04/01. 04/15 MRI showed bilateral cerebral hemisphere strokes. 04/22 trach and peg tube placement. 04/23 cardioversion due to aflutter. 05/11 fall out of chair, CT negative. 05/16 trach decannulated. 05/27 peg discharged. 05/31/23 transfer to [facility] ARU. Social History Home: Multilevel Current Living Status: Spouse Entry Into Home: Stairs With Railing Steps Into Home: 3 only lives on main level ADL-Prior Level of Function SCALE: Activities may be completed with or without assistive devices. 4-Kfhcigajwy-sdubqae completes the activity by him/herself with no assistance from a helper. 5-Set-up or Clean-up Assistance-helper sets up or cleans up; patient completes activity. [place] assists only prior to or following the activity. 4-Supervision or Touching Assistance-helper provides verbal cues and/or touching/steadying and/or contact guard assistance as patient completes activity. Assistance may be provided throughout the activity or intermittently. 3-Partial/Moderate Assistance-helper does LESS THAN HALF the effort. [place] lifts, holds or supports trunk or limbs, but provides less than half the effort. 2-Substantial/Maximal Assistance-helper does MORE THAN HALF the effort. [place] lifts or holds trunk or limbs and provides more than half the effort. 5-Lidvbmrnv-uvsidk does ALL the effort. Patient does none of the effort to complete the activity. Or, the assistance of 2 or more helpers is required for the patient to complete the activity. If activity was not attempted, code reason: 7-Patient Refused. 9-Not Applicable-not attempted and the patient did not perform the activity before the current illness, exacerbation or injury. 10-Not Attempted due to Environmental Limitations-(lack of equipment, weather restraints, etc.). 88-Not Attempted due to Medical Conditions or Safety Concerns. ADL PLOF Comments Pt reports IND with ADLs and functional mobility, no AD. 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 He has a walk in shower, no SC. He sleeps in a regular bed. 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 Mental Status/Objective Patient Orientation: Person, Place, Time, Situation Current Upper Extremity ROM WFL, BUE shoulder flexion to approx 160 degrees during tx Upper Extremity Coordination WFL Upper Extremity Sensation WFL Upper Extremity Strength not formally tested due to sternal precautions. Pt states weakness compared to his PLOF. Other Treatments OT evaluation complete. Pt provided information about PLOF and home set up and participated in UE screen. OT provided education on rehab process and expectations. Pt agreeable to completing ADL session during next session this afternoon. Post tx, pt with PT for tx, all needs me. Education OT Patient Education: Correct positioning, Energy conservation, Modified ADL techniques, Progress toward Goal/Update tx plan, Purpose of tx/functional activities, Rehab process Teaching Recipient: Patient Teaching Methods: Discussion Response to Teaching: Verbalize Understanding BIMS CAM BIMS Expression of Ideas and Wants: Without Difficulty Understanding Verbal Content: Understands Brief Interview/Mental Status: Yes IRF PAUL BIMS: IRF PAUL BIMS Response (Comments) Value Repitition of Three Words Three 3 Recalls Socks Yes, No Cue Required 2 Recalls Blue Yes, No Cue Required 2 Recalls Bed Yes, After Cueing 1 Year Correct 3 Month Accurate Within 5 Days 2 Day Correct 1 Total 14 Patient Normally Able to Recal: Current Session, Location of own room, Staff Names and faces, That he/she in a hsp Should Staff Asses. Mental St.: No Memory/Recall Ability: Current Season, Location of Own Room, Staff Names and Faces, That He/She in [facility] CAM Mental Status Change/Baseline: 0 Inattention: 0 Disorganized thinkin Altered level of consciousness: 0 OT Senior Care Goals Senior Care Goals Time Frame: Jun 21, 2023 Eating (QC): 6 Oral Hygiene (QC): 6 Toileting Hygiene (QC): 6 Shower/Bathe Self (QC): 6 Upper Body Dressing (QC): 6 Lower Body Dressing (QC): 6 On/Off Footwear (QC): 6 Additional Goals: 1-Demonstrate ADL Tasks, 2-Verbalize Understanding, 3- ImproveStrength/Grace 1=Demonstrate adherence to instructed precautions during ADL tasks. 2=Patient will verbalize/demonstrate understanding of assistive device s/modifications for ADL. 3=Patient will improve strength/tolerance for activity to enable patient to perform ADL's. OT Education/Plan Problem List/Assessment Assessment: Decreased Activ Tolerance, Decreased UE Strength, Impaired Funct Balance, Impaired I ADL's, Impaired Self-Care Skills Discharge Recommendations Plan/Recommendations: Continue POC Treatment Plan/Plan of Care Patient would benefit from OT for education, treatment and training to promote independence in ADL's, mobility, safety and/or upper extremity function for ADL's. Plan of Care: ADL Retraining, Functional Mobility, Group Exercise/Act as Ind, UE Funct Exercise/Act Treatment Duration: Jun 21, 2023 Frequency: At least 5 of 7 days/Wk (IRF) Estimated Hrs Per Day: Other (75 mins per day) Agreement: Yes Rehab Potential: Good Time Start Time: 12:00 Stop Time: 12:20 DATE: May 31, 2023 Total Time Billed (hr/min): 20 Billed Treatment Time 1JUAN ADDISON OT May 31, 2023 12:00
[2023-05-31] MEDS ORDERED: LACTULOSE SYRUP 10GM/15ML 30ML UDC PO PRN (12:30)
[2023-05-31] MEDS ORDERED: DOCUSATE SODIUM 100 MG CAPSULE PO PRN (12:30)
[2023-05-31] MEDS ORDERED: SENN15TA5 PO (12:39)
[2023-05-31] MEDS ORDERED: SENNA PO PRN (12:45)
[2023-05-31] MEDS ORDERED: PATIENT MAY USE OWN MED,SINGLE MED PO SCH (12:45)
--- NOTE | 2023-05-31 13:51 | Physical Therapy Evaluation ---
PT Evaluation-General Medical Diagnosis Admission Date May 31, 2023 at 11:18 Medical Diagnosis: CVA Onset Date: Mar 29, 2023 Therapy Diagnosis Therapy Diagnosis: impaired transfers,gait, endurance, safety awareness deficit Precautions Precautions/Isolations: Fall Prevention, Standard Precautions Weight Bear Status Full Weight Bearing Full Weight Bearing Referral Physician: Kirstin Reason for Referral: Evaluation/Treatment Medical History Pertinent Medical History: Atrial Fib, CAD, [place] Additional Medical History ARF - intubated, decannulated 05/16. Acute liver failure (eyes are jaundiced 05/31/23), hemodialysis d/c 05/20 per screen. CVA 04/15/23. PEG removed 05/27. Social History Home: Multilevel Current Living Status: Spouse Entry Into Home: Stairs With Railing PT Steps Into Home: 4 states he does not use 2nd story, that his BR/BR, kitchen, living room is all on main level. Prior Prior Level of Function SCALE: Activities may be completed with or without assistive devices. 6-Ckxdjcljta-hxmeypg completes the activity by him/herself with no assistance from a helper. 5-Set-up or Clean-up Assistance-helper sets up or cleans up; patient completes activity. [place] assists only prior to or following the activity. 4-Supervision or Touching Assistance-helper provides verbal cues and/or touching/steadying and/or contact guard assistance as patient completes activity. Assistance may be provided throughout the activity or intermittently. 3-Partial/Moderate Assistance-helper does LESS THAN HALF the effort. [place] lifts, holds or supports trunk or limbs, but provides less than half the effort. 2-Substantial/Maximal Assistance-helper does MORE THAN HALF the effort. [place] lifts or holds trunk or limbs and provides more than half the effort. 0-Rxotqnyrv-rywmze does ALL the effort. Patient does none of the effort to complete the activity. Or, the assistance of 2 or more helpers is required for the patient to complete the activity. If activity was not attempted, code reason: 7-Patient Refused. 9-Not Applicable-not attempted and the patient did not perform the activity before the current illness, exacerbation or injury. 10-Not Attempted due to Environmental Limitations-(lack of equipment, weather restraints, etc.). 88-Not Attempted due to Medical Conditions or Safety Concerns. Bed Mobility: 6 Transfers (B,C,W/C): 6 Gait: 6 Stairs: 6 Wheelchair Mobility: 9 Indoor Mobility (Ambulation): Independent Stairs: Independent Prior Devices Use: None Prior Device Use: none works 22 hours a day. 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 PT Evaluation-Current Subjective Eager to improve. States he was told he should not have lived and he has had a miraculous recovery the last 3 days. Pain Section J - Health Conditions 1. Rarely or not at all 2. Occasionally 3. Frequently 4. Almost constantly 8. Unable to answer Pain Effect on Sleep: 0 Pain Interference with Therapy: 0 Pain Interference w/Day-to-Day: 0 Pt/Family Goals To return home and return to restaurant business. States he is planning to build a restaurant for his nephew. Objective Patient Orientation: Person, Place, Time, Situation ROM/Strength ROM Upper Extremities deferred to OT ROM Lower Extremities WFL (B) Strength Upper Extremities deferred to OT Strength Lower Extremities (L) ankle PF 3/5, (L) ankle DF 4/5, knee flexion/extension 4+/5, hip flexion 4/5. hip abd/add 4+/5 (R) ankle PF/DF 4+/5, knee flexion/extenson 4+/5, hip flexion 4/5, hip abd/add 4+/5. Sensory Vision: Functional Hearing: Functional Transfers Roll Left & Right (QC): 5 (bed rails raised for patient use) Sit to Lying (QC): 6 Lying to Sitting/Side of Bed(Q: 5 (bed rails raised for use) Sit to Stand (QC): 3 (min (A). Will need cues for hand placement and safety) Chair/Ilm-cu-Sprcd Xfer(QC): 4 (CGA /c FWW with cues to turn completely prior to sitting) Toilet Transfer (QC): 4 (/c FWW and grab bar) Car Transfer (QC): 3 (Mod (A) as patient attempted to step into car prior to sitting - had to stop patient, have him correct balance and sit prior to swinging legs in. ) Impulsive vs personality? of wanting to nguyen and do things quickly, but not necessarily safely. Gait Walk 10 feet (QC): 4 (CGA /c FWW) Walk 50 ft with 2 Turns(QC): 3 (CGA-Min (A) /c v.c. /c FWW, more fatigued towards end of walk.) Walk 150 ft (QC): 88 (limited by endurance) Walking 10ft/uneven surface-QC: 3 (min (A) with FWW) Distance: 40', 50', 35', 35,' 60'. 50' Gait Assistive Device: FWW Comments/Gait Description Mild SOB /c gait, but sats 98-100% and HR 130's-140's. (was 133 at rest in recliner prior to session) Wheelchair Training Does the Pt Use a Wheelchair?: No Wheel 50 ft with 2 turns (QC): 9 Wheel 150 ft (QC): 9 Stairs 1 Step (curb) (QC): 3 (mod (A) of 1 for stability and secure stepping due to leg weakness) 4 Steps (QC): 3 (min-mod (A) of 1 /c (B) rails /c v.c. to slow down) 12 Steps (QC): 3 (min-mod (A) of 1 /c (B) rails /c v.c. to slow down) Walking Assistive Device: Walker Balance Sitting Static: Good Sitting Dynamic: Good Standing Static: Fair Standing Dynamic: Fair Picking up an Object (QC): 3 (Min (A) using lower cross bar of walker for stability) Special Test Comments [facility] Balance Scale: 2+. Goal 4 Elderly Mobility Scale: 06/24. Goal: Treatment Gait training focusing on endurance and observing dyspnea where patient could carry on conversation while ambulating. Nustep exercise L6 for 5' - patient wanted more resistance than Level 6, but this therapist does not recommend due to 6# weight limit on UE's. O2 sats remained 97-100% and HR did not elevate over 142. Assessment/Needs 57 year old male with significant recent cardiac hx and CVA with endurance deficits as expected, weakness, and mild mobility deficits. Patient does exhibit impulsivity with tasks, but difficult to distinguish between safety awareness deficit or patient's premorbid personality. Patient would benefit from PT on ARU to maximize strength, endurance and safe mobility for return home with spouse. Rehab Potential: Good Equipment Needs May need FWW at D/C. Cardiac rehab at D/C? PT Alf Goals Alf Goals PT Lidar Scientist Goals Time Frame: Jun 14, 2023 Roll Left to Right (QC): 6 Sit to Lying (QC): 6 Lying-Sitting on Side/Bed(QC): 6 Sit to Stand (QC): 6 Chair/Mxw-wc-Lyuiv Xfer(QC): 6 (/c FWW or cane) Toilet/Commode Transfer (QC): 6 (/c FWW ) Car Transfer (QC): 6 (/c FWW and safe technique consistently) Does the Patient Walk: Yes Walk 10 feet (QC): 6 (/c FWW or cane) Walk 10ft-Uneven Surface(QC): 6 (/c FWW or cane) Walk 50ft with 2 Turns (QC): 6 (/c FWW or cane) Walk 150 ft (QC): 6 (/c FWW or cane) Does the Pt use WC or Scooter?: No Wheel 50 feet with 2 turns (QC: 9 Wheel 150 feet: 9 1 Step (curb) (QC): 6 (/c FWW or cane and rail) 4 Steps (QC): 6 (/c (B) rails /c safe technique and zachery) 12 Steps (QC): 6 (/c (B) rails /c safe technique and zachery) Picking up an Object (QC): 6 PT Plan Problem List Problem List: Activity Tolerance, Functional Strength, Safety, Balance, Gait, Transfer, Bed Mobility Treatment/Plan Treatment Plan: Continue Plan of Care Treatment Plan: Bed Mobility, Education, Functional Activity Grace, Functional Strength, Group Therapy, Gait, Safety, Therapeutic Exercise, Transfers Treatment Duration: Jun 14, 2023 Frequency: At least 5 of 7 days/Wk (IRF) Estimated Hrs Per Day: 1.5 hours per day Safety Risks/Education Safety Risk Comments: Impulsivity vs premorbid personality. Patient Education: Gait Training, Transfer Techniques, Steps Teaching Recipient: Patient Teaching Methods: Demonstration, Discussion Response to Teaching: Reinforcement Needed Discharge Recommendations Therapy Discharge Recommendati: Home & Family, Post Acute PT Equpiment Recommendations-D/C: Front Wheeled Walker Time Time In: 1140 ((1220)) Time Out: 1200 ((1255)) DATE: May 31, 2023 Total Billed Treatment Time: 55 Total Billed Treatment [id number] = EVM 20' 12:20-12:55 = 35' Ex, Gt Kayla Perkins PT May 31, 2023 13:51
--- NOTE | 2023-05-31 14:38 | ST Cognitive Linguistic Eval ---
Speech Evaluation-General Medical Diagnosis CVA Onset Date: Mar 29, 2023 Therapy Diagnosis Therapy Diagnosis: CVA Precautions Precautions/Isolations: Standard Precautions Referral Referring Physician: Dr. Fulton Reason for Referral: Evaluation/Treatment Medical History Pertinent Medical History: Atrial Fib, CAD, DM, Heart Failure, HTN, PA Current History Pt admitted to [facility] with PA on 03/29/23, s/p CABG 04/01/23. Complicated recovery with cardiogenic shock, acute systolic right heart failure, acute kidney failure, liver failure, acute respiratory failure. The pt required intubation with trach placement and PEG placement completed 04/22/23. MRI on 04/15/23 showed bilateral cerebellar hemisphere CVA's. The pt was transferred to [facility] on 05/13/23. He was fully decannulated on 05/16/23, PEG was removed 05/27/23. 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 Per his report, works 20-22 hours per day, with very little sleep. Subjective The pt was awake and alert, pleasant and cooperative throughout session. Language Eval: Verbal Language Completes Spontaneous Greeting: Functional Word Finding: Functional Requests Basic Needs: Functional States Basic Personal Info: Functional Expresses Complex Ideas: Functional Objective Formal/Standardized Tests SLUMS assessment Results The pt earned 18/20 on the SLUMS assessment. The pt was oriented to place and time. Given date of initial surgery and today's date, the pt was unable to calculate time elapsed between the dates. Short-term recall was 3/5, word generation was 8 animals in one minute. Reverse digit recitation was 0/4, recall of story details was at 3/4. Clock drawing was impaired for both number placem ent (5 numbers placed on the clock) and hand placement. Oral Motor/Speech Production Speech was clear, voice was normal. Lingual protrusion was symmetrical, no weakness noted. Mild decrease in lingual coordination for complex movement. Impression The pt presented with moderate cognitive-linguistic deficits in the areas of working memory and short-term memory, as well as simple mathematical problem solving. Speech Short Term Goals Short Term Goals Short Term Goals Reassess cognitive function 06/03/23. Time Frame-ST days Speech Personnel Analyst Goals Personnel Analyst Goals The pt will demonstrate improved memory for up to 5 units of information with 90% accuracy. The pt will complete functional mathematical problem solving with 90% accuracy. Speech-Plan Treatment Plan Speech Therapy Treatment Plan: Continue Plan of Care Frequency: At least 5 of 7 days/Wk (IRF) Estimated Hrs Per Day: .5 hour per day Rehab Potential: Good Pt/Family Agrees to Plan: Yes Time Speech Therapy Time In: 12:55 Speech Therapy Time Out: 13:30 DATE: May 31, 2023 Total Billed Time: 35 Billed Treatment Time 1 SPSNDCOMP (35 min) CHRISTINE SHORT May 31, 2023 14:38
--- NOTE | 2023-05-31 15:09 | Occupational Ther Daily Note ---
OT Current Status-Daily Note Subjective Pt alert, working with OTR/L. Took over care of pt at 1410. Pt agrees to therapy. No c/o pain. Pt is very motivated to get stronger and work with therapy. Mental Status/Objective Patient Orientation: Person, Place, Time, Situation Attachments: IV ADL-Treatment Pt stood in shower 90% of time using grabbars to stabilize, SBA for safety. Set up for UBD. Pt able to thread feet through lower body clothing by self then SBA while standing to hike pants over hips. Independent with oral care, sitting at sink. Set up for footwear. Therapy Code Descriptions/Definitions Functional [place] Measure: 0=Not Assessed/NA 4=Minimal Assistance 1=Total Assistance 5=Supervision or Setup 2=Maximal Assistance 6=Modified [place] 3=Moderate Assistance 7=Complete IndependenceSCALE: Activities may be completed with or without assistive devices. 4-Niqomoajpi-wnwveru completes the activity by him/herself with no assistance from a helper. 5-Set-up or Clean-up Assistance-helper sets up or cleans up; patient completes activity. [place] assists only prior to or following the activity. 4-Supervision or Touching Assistance-helper provides verbal cues and/or touching/steadying and/or contact guard assistance as patient completes activity. Assistance may be provided throughout the activity or intermittently. 3-Partial/Moderate Assistance-helper does LESS THAN HALF the effort. [place] lifts, holds or supports trunk or limbs, but provides less than half the effort. 2-Substantial/Maximal Assistance-helper does MORE THAN HALF the effort. [place] lifts or holds trunk or limbs and provides more than half the effort. 0-Cnyktrvry-zeelcq does ALL the effort. Patient does none of the effort to complete the activity. Or, the assistance of 2 or more helpers is required for the patient to complete the activity. If activity was not attempted, code reason: 7-Patient Refused. 9-Not Applicable-not attempted and the patient did not perform the activity before the current illness, exacerbation or injury. 10-Not Attempted due to Environmental Limitations-(lack of equipment, weather restraints, etc.). 88-Not Attempted due to Medical Conditions or Safety Concerns. Oral Hygiene (QC): 6 Shower/Bathe Self (QC): 4 Upper Body Dressing (QC): 5 Lower Body Dressing (QC): 4 On/Off Footwear: 5 Other Treatment Pt completed arm bike at 20 zhao resistance for 8 min to increase strength and stamina for daily functional tasks. Red theraband and HEP given to pt for use in room. Pt demonstrated understanding of HEP after skilled instruction for correct technique and modifications when needed. Continued need for skilled instruction of theraband exercises for proficiency. After session, pt sitting on EOB with call light/phone in reach. All needs met in room. BIMS CAM BIMS Expression of Ideas and Wants: Without Difficulty Understanding Verbal Content: Understands Brief Interview/Mental Status: Yes IRF PAUL BIMS: IRF PAUL BIMS Response (Comments) Value Repitition of Three Words Three 3 Recalls Socks Yes, No Cue Required 2 Recalls Blue Yes, No Cue Required 2 Recalls Bed Yes, After Cueing 1 Year Correct 3 Month Accurate Within 5 Days 2 Day Correct 1 Total 14 Patient Normally Able to Recal: Current Session, Location of own room, Staff Names and faces, That he/she in a hsp Should Staff Asses. Mental St.: No CAM Mental Status Change/Baseline: 0 Inattention: 0 Disorganized thinkin Altered level of consciousness: 0 OT Open Hearth Stockyard Supervisor Goals Open Hearth Stockyard Supervisor Goals Time Frame: Jun 21, 2023 Eating (QC): 6 Oral Hygiene (QC): 6 Toileting Hygiene (QC): 6 Shower/Bathe Self (QC): 6 Upper Body Dressing (QC): 6 Lower Body Dressing (QC): 6 On/Off Footwear (QC): 6 Additional Goals: 1-Demonstrate ADL Tasks, 2-Verbalize Understanding, 3- ImproveStrength/Grace 1=Demonstrate adherence to instructed precautions during ADL tasks. 2=Patient will verbalize/demonstrate understanding of assistive devices/modifications for ADL. 3=Patient will improve strength/tolerance for activity to enable patient to perform ADL's. OT Education/Plan Problem List/Assessment Assessment: Decreased Activ Tolerance, Decreased UE Strength, Impaired Self- Care Skills Discharge Recommendations Plan/Recommendations: Continue POC Treatment Plan/Plan of Care Patient would benefit from OT for education, treatment and training to promote independence in ADL's, mobility, safety and/or upper extremity function for ADL's. Plan of Care: ADL Retraining, Functional Mobility, Group Exercise/Act as Ind, UE Funct Exercise/Act Treatment Duration: Jun 21, 2023 Frequency: At least 5 of 7 days/Wk (IRF) Estimated Hrs Per Day: Other (75) Agreement: Yes Rehab Potential: Good Time Start Time: 14:10 Stop Time: 14:55 DATE: May 31, 2023 Total Time Billed (hr/min): 45 Billed Treatment Time 1 visit-ADL 2 (25 min) EX 1 (20 min) KATLYN SANTOS May 31, 2023 15:09
--- NOTE | 2023-05-31 16:00 | Occupational Ther Daily Note ---
OT Current Status-Daily Note Subjective Pt agreeable to OT Tx with focus on showering ADL-Treatment Therapy Code Descriptions/Definitions Functional [place] Measure: 0=Not Assessed/NA 4=Minimal Assistance 1=Total Assistance 5=Supervision or Setup 2=Maximal Assistance 6=Modified [place] 3=Moderate Assistance 7=Complete IndependenceSCALE: Activities may be completed with or without assistive devices. 7-Zmxelmsoqf-thqtsvi completes the activity by him/herself with no assistance from a helper. 5-Set-up or Clean-up Assistance-helper sets up or cleans up; patient completes activity. [place] assists only prior to or following the activity. 4-Supervision or Touching Assistance-helper provides verbal cues and/or touching/steadying and/or contact guard assistance as patient completes activity. Assistance may be provided throughout the activity or intermittently. 3-Partial/Moderate Assistance-helper does LESS THAN HALF the effort. [place] lifts, holds or supports trunk or limbs, but provides less than half the effort. 2-Substantial/Maximal Assistance-helper does MORE THAN HALF the effort. [place] lifts or holds trunk or limbs and provides more than half the effort. 6-Pdtlzbxrb-ltqnnp does ALL the effort. Patient does none of the effort to complete the activity. Or, the assistance of 2 or more helpers is required for the patient to complete the activity. If activity was not attempted, code reason: 7-Patient Refused. 9-Not Applicable-not attempted and the patient did not perform the activity before the current illness, exacerbation or injury. 10-Not Attempted due to Environmental Limitations-(lack of equipment, weather restraints, etc.). 88-Not Attempted due to Medical Conditions or Safety Concerns. Eating (QC): 6 (Per pt report) Toileting Hygiene (QC): 4 (SBA) Toilet Transfer (QC): 4 (SBA) Other Treatment Pt in bed, transferred supine to sit EOB, IND. Pt stood from EOB, SBA, then used FWW to transfer into bathroom and onto toilet, SBA. Pt completed toileting, SBA, then transferred to SC. Pt able to doff shirt and socks with set up and doff pants in standing, SBA. [place] present to continue ADL session with pt, taking over care at 1410. Education OT Patient Education: Correct positioning, Energy conservation, Modified ADL techniques, Progress toward Goal/Update tx plan, Purpose of tx/functional activities, Rehab process Teaching Recipient: Patient Teaching Methods: Discussion Response to Teaching: Verbalize Understanding OT Jail Goals Real Estate Accountant Goals Time Frame: Jun 21, 2023 Acute change in mental status: 0 Inattention: 0 Disorganized thinkin Altered level of consciousness: 0 Eating (QC): 6 Oral Hygiene (QC): 6 Toileting Hygiene (QC): 6 Shower/Bathe Self (QC): 6 Upper Body Dressing (QC): 6 Lower Body Dressing (QC): 6 On/Off Footwear (QC): 6 Additional Goals: 1-Demonstrate ADL Tasks, 2-Verbalize Understanding, 3- ImproveStrength/Grace 1=Demonstrate adherence to instructed precautions during ADL tasks. 2=Patient will verbalize/demonstrate understanding of assistive devices/modifications for ADL. 3=Patient will improve strength/tolerance for activity to enable patient to perform ADL's. OT Education/Plan Problem List/Assessment Assessment: Decreased Activ Tolerance, Decreased UE Strength, Impaired Funct B alance, Impaired I ADL's, Impaired Self-Care Skills Discharge Recommendations Plan/Recommendations: Continue POC Treatment Plan/Plan of Care Patient would benefit from OT for education, treatment and training to promote independence in ADL's, mobility, safety and/or upper extremity function for ADL's. Plan of Care: ADL Retraining, Functional Mobility, Group Exercise/Act as Ind, UE Funct Exercise/Act Treatment Duration: Jun 21, 2023 Frequency: At least 5 of 7 days/Wk (IRF) Estimated Hrs Per Day: Other (75 mins per day) Agreement: Yes Rehab Potential: Good Time Start Time: 13:45 Stop Time: 14:10 DATE: May 31, 2023 Total Time Billed (hr/min): 25 Billed Treatment Time 1, ADL 2 PÉREZ REED OT May 31, 2023 16:00
[2023-05-31] MEDS: inSUlin ASPART 1 UNIT/0.01 ML (PER UNIT) SC SCH ×2 (17:31→20:59)
[2023-05-31] MEDS: MIDODRINE 10 MG TABLET PO SCH (17:31)
[2023-05-31 20:35] VITALS: BP 100/70
[2023-05-31] MEDS: LACTOBACILLUS ACIDOPHILUS (PROBIOTIC) CAPSULE PO SCH (20:58)
[2023-05-31] MEDS: TICAGRELOR 90 MG TABLET (BRILINTA) PO SCH (20:59)
[2023-05-31] MEDS ORDERED: NON-FORMULARY MEDICATION 1 EA EA (Midodrine HCl 5 MG) PO SCH (21:00)
[2023-05-31] MEDS: ACETAMINOPHEN 325 MG TABLET PO PRN (21:16)
--- NOTE | 2023-06-01 05:39 | Individualized Plan of Care ---
Individualized Plan of Care Rehab Nursing IPOC Order Admission Date May 31, 2023 at 11:18 Current Orders Orders Admission Order(Inpt,Obs,Sdc) (05/31/23 08:38) Vital Signs: Per Unit Policy ( 08,16,00 (05/31/23 08:38) Pasquale Bardales 09,21 (05/31/23 08:38) Sequential Compression Device [id number] (05/31/23 08:38) Poster-Inpt Rehab Con (05/31/23 08:38) Rehab Nursing Orders-Ipoc (05/31/23 08:38) Physical Therapy Rehab Orders (05/31/23 08:38) Occupational Therapy Rehab Ord (05/31/23 08:38) Speech Therapy Rehab Orders (05/31/23 08:38) Cbc And Automated Diff (06/01/23 06:00) Comprehensive Metabolic Panel (06/01/23 06:00) Precautions (Aru) (05/31/23 08:38) Weekly Weight WEEK (05/31/23 08:38) Rehab-Intensity Of Therapy (05/31/23 08:38) Initiate Admission Nursing Pro .admission (05/31/23 08:38) Alprazolam Tablet (Alprazolam Tablet) (05/31/23 08:45) Calcium Carbonate Chew Tablet (Calcium C (05/31/23 08:45) Diphenhydramine Tablet (Diphenhydramine (05/31/23 08:45) Docusate Sodium Capsule (Docusate Sodium (05/31/23 09:00) Docusate Sodium Capsule (Docusate Sodium (05/31/23 08:45) Bisacodyl Suppository (Bisacodyl Supposi (05/31/23 08:45) Lactulose Oral Solution (Enulose Oral So (05/31/23 08:45) Na Phos/Na Biphos Adult Enema (Na Phos/N (05/31/23 08:45) Guaifenesin/Codeine Syrup (Guaifenesin/C (05/31/23 08:45) Loperamide Capsule (Loperamide Capsule) (05/31/23 08:45) Melatonin Tablet (Melatonin Tablet) (05/31/23 08:45) Polyethylene Glycol Powder (Polyethylen (05/31/23 09:00) Ondansetron Oral Dissolve Tab (Ondanset (05/31/23 08:45) Senna W/Docusate Tablet (Senna W/Docusat (05/31/23 09:00) Acetaminophen Tablet (Acetaminophen Ta (05/31/23 08:45) Initiate Admission Nursing Pro .admission (05/31/23 08:38) Admission Arrival Bed Request (05/31/23 11:28) Cho 60g/M 3snack (16-2000 Mc) (05/31/23 Lunch) Aspirin Chewable Tablet (Aspirin Chewabl (06/01/23 09:00) Vitamin D3 Tablet (Vitamin D3 Tablet) (06/01/23 09:00) Docusate Sodium Capsule (Docusate Sodium (05/31/23 12:30) Lactobacillus Acidophilus Cap (Acidophil (05/31/23 21:00) Lactulose Oral Solution (Enulose Oral So (05/31/23 12:30) Pantoprazole Tablet (Pantoprazole Tablet (06/01/23 09:00) Polyethylene Glycol Powder (Polyethylen (06/01/23 09:00) Ticagrelor Tablet (Brilinta Tablet) (05/31/23 21:00) (Nf) Folic Acid/Vitamin B Comp W-C (Yulisa (06/01/23 09:00) (Nf) Insulin Glargine,Hum.Rec.Anlog (Nik (06/01/23 09:00) (Nf) Midodrine Hcl (05/31/23 21:00) Accucheck Achs ACHS (05/31/23 12:18) Insulin Aspart (Per Unit) (Insulin Aspar (05/31/23 16:00) Midodrine Tablet (Midodrine Tablet) (05/31/23 18:00) Insulin Determir (Per Unit) (Insulin Det (06/01/23 09:00) Multivitamin W/Mineral Tablet (Multivita (06/01/23 07:00) (Nf) Sennosides (Ex-Lax) (05/31/23 12:45) Patient May Use Own Med,Single (Patient (05/31/23 12:45) Patient Visit (05/31/23 ) Pt Eval Moderate Complexity (05/31/23 ) Gait Training, Ea 15 Min (05/31/23 ) Exercise Therap, Ea 15 Min (05/31/23 ) Patient Visit (05/31/23 ) Speech Sound Lang Comp (05/31/23 ) Rehab Nursing Orders: Ongoing Assess. of Cognitive Status, Ongoing Assess. of Function Status, Bladder Management, Bladder Scan, Bladder Training, Bowel Management, Bowel Training, Disease Management & Educaiton, DVT Prophylaxis, Fall Prevention, Fluid/Electrolyte/Nutrition Mgmt, Infection Prevention, Medication Management & Education, Management of Risks & Complications, Management of Skin Intergrity, Nutrition Management, Pain Management, Patient/Family Support, Safety Management, Wound Management Intensity of Therapy to be met Patient to be seen: Min.3h per day/5 of 7d PT IPOC Problem List: Activity Tolerance, Functional Strength, Safety, Balance, Gait, Transfer, Bed Mobility Treatment Plan: Continue Plan of Care Bed Mobility, Education, Functional Activity Grace, Functional Strength, Group Therapy, Gait, Safety, Therapeutic Exercise, Transfers Treatment Duration: Jun 14, 2023 Frequency: At least 5 of 7 days/Wk (IRF) Estimated Hrs Per Day: 1.5 hours per day OT IPOC Problems: Decreased Activ Tolerance, Decreased UE Strength, Impaired Funct Balance, Impaired I ADL's, Impaired Self-Care Skills OT Treatment, Training and Edu: Yes Plan of Care: ADL Retraining, Functional Mobility, Group Exercise/Act as Ind, UE Funct Exercise/Act Treatment Duration: Jun 21, 2023 Frequency: At least 5 of 7 days/Wk (IRF) Estimated Hrs Per Day: Other (75 mins per day) ST IPOC Speech Therapy Treatment Plan: Continue Plan of Care Treatment Duration: May 31, 2023 Frequency: At least 5 of 7 days/Wk (IRF) Estimated Hrs Per Day: .5 hour per day Poster/Case Mgmt Poster/Case Managemen: Discharge Planning Dietitian/Technical Sales Associate Dietitian/Technical Sales Associate to monitor nutritional status and make changes and/or recommendations as needed and work with speech pathology on dietary upgrades as the occur. Physician IPOC Medical Issues being managed closely and that require the 24 hour availability of a physician: Recent catastrophic postop complications with multisystem organ failure with continued renal insufficiency and elevated liver enzymes will require close monitoring because high risk for decompensation Medical Issues: Bowel/Bladder Function, DVT Prophylaxis, Falls Precautions, Fluid/Electrolyte/Nutrition Balance, Infection Protection, Pain Management, Wound Care Brief Synthesis of Preadmission Screen, Post-Admission Evaluation, and Therapy Evaluations: PT and OT will focus on regaining independence with use of assistive devices and then wean off assistive devices since he intends to return back to full-time work at discharge Medical Prognosis: Good Anticipated Length of Stay: 7 days SANDOR GARCES DO Jun 01, 2023 05:39
--- NOTE | 2023-06-01 05:39 | PM&R Progress Note ---
Subjective HPI/CC On Admission Date Seen by Provider: Jun 01, 2023 Time Seen by Provider: 08:30 Subjective/Events-last exam 06/01/2023: Patient doing well Labs reviewed Creatinine 1.37 Patient feels good Denies any pain Still impulsive Review of Systems General: Fatigue, Malaise Objective Exam Vital Signs Vital Signs Date Time Temp Pulse Resp B/P (MAP) Pulse Ox O2 Delivery O2 Flow Rate FiO2 06/01/23 13:26 116 18 110/76 (87) 100 Room Air 06/01/23 10:00 36.3 Capillary Refill : General Appearance: No Apparent Distress, WD/WN, Anxious, Chronically ill HEENT: PERRL/EOMI, Normal ENT Inspection, Pharynx Normal Neck: Full Range of Motion, Normal Inspection, Non Tender, Supple, Carotid Bruit Respiratory: Chest Non Tender, Lungs Clear, Normal Breath Sounds, No Accessory Muscle Use, No Respiratory Distress Cardiovascular: Regular Rate, Rhythm, No Edema, No Gallop, No JVD, No Murmur, Normal Peripheral Pulses Gastrointestinal: Normal Bowel Sounds, No Organomegaly, No Pulsatile Mass, Non Tender, Soft Back: Normal Inspection, No CVA Tenderness, No Vertebral Tenderness Extremity: Normal Capillary Refill, Normal Inspection, Normal Range of Motion, Non Tender, No Calf Tenderness, No Pedal Edema Neurologic/Psychiatric: Alert, Oriented x3, Normal Mood/Affect, 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 FIM Transfers Therapy Code Descriptions/Definitions Functional [place] Measure: 0=Not Assessed/NA 4=Minimal Assistance 1=Total Assistance 5=Supervision or Setup 2=Maximal Assistance 6=Modified [place] 3=Moderate Assistance 7=Complete IndependenceSCALE: Activities may be completed with or without assistive devices. 7-Xyhejmzddz-jemhwnr completes the activity by him/herself with no assistance from a helper. 5-Set-up or Clean-up Assistance-helper sets up or cleans up; patient completes activity. [place] assists only prior to or following the activity. 4-Supervision or Touching Assistance-helper provides verbal cues and/or touching/steadying and/or contact guard assistance as patient completes activity. Assistance may be provided throughout the activity or intermittently. 3-Partial/Moderate Assistance-helper does LESS THAN HALF the effort. [place] lifts, holds or supports trunk or limbs, but provides less than half the effort. 2-Substantial/Maximal Assistance-helper does MORE THAN HALF the effort. [place] lifts or holds trunk or limbs and provides more than half the effort. 6-Pfadcuzcu-qmogmd does ALL the effort. Patient does none of the effort to complete the activity. Or, the assistance of 2 or more helpers is required for the patient to complete the activity. If activity was not attempted, code reason: 7-Patient Refused. 9-Not Applicable-not attempted and the patient did not perform the activity before the current illness, exacerbation or injury. 10-Not Attempted due to Environmental Limitations-(lack of equipment, weather restraints, etc.). 88-Not Attempted due to Medical Conditions or Safety Concerns. Roll Left to Right (QC): 5 (bed rails raised for patient use) Sit to Lying (QC): 6 Sit to Stand (QC): 3 (min (A). Will need cues for hand placement and safety) Chair/Oix-qx-Ownce Xfer(QC): 4 (CGA /c FWW with cues to turn completely prior to sitting) Car Transfer (QC): 3 (Mod (A) as patient attempted to step into car prior to sitting - had to stop patient, have him correct balance and sit prior to swinging legs in. ) Gait Training Walk 10 feet (QC): 4 (CGA /c FWW) Walk 50 ft with 2 Turns(QC): 3 (CGA-Min (A) /c v.c. /c FWW, more fatigued towards end of walk.) Walk 150 ft (QC): 88 (limited by endurance) Walking 10ft/uneven surface-QC: 3 (min (A) with FWW) Gait Assistive Device: FWW Wheelchair Training Does the Pt Use a Wheelchair?: No Wheel 50 ft with 2 turns (QC): 9 Wheel 150 ft (QC): 9 Stair Training 1 Step (curb) (QC): 3 (mod (A) of 1 for stability and secure stepping due to leg weakness) 4 Steps (QC): 3 (min-mod (A) of 1 /c (B) rails /c v.c. to slow down) 12 Steps (QC): 3 (min-mod (A) of 1 /c (B) rails /c v.c. to slow down) Balance Picking up an Object (QC): 3 (Min (A) using lower cross bar of walker for stability) ADL-Treatment Eating (QC): 6 (Per pt report) Oral Hygiene (QC): 6 Shower/Bathe Self (QC): 4 Upper Body Dressing (QC): 5 Lower Body Dressing (QC): 4 On/Off Footwear (QC): 5 Toileting Hygiene (QC): 4 (SBA) Toilet Transfer (QC): 4 (SBA) Assessment/Plan Assessment and Plan Assess & Plan/Chief Complaint Assessment: CVA s/p CABG s/p acute renal, liver, and respiratory failure s/p cardiogenic shock s/p tracheostomy and PEG tube T2DM systolic CHF HTN HLD Anemia Elevated liver enzymes Chronic kidney disease Plan: PT OT Home meds Monitor closely 06/01/2023: Supportive care Monitor closely (1) CVA (cerebral vascular accident) SANDOR GARCES DO Jun 01, 2023 05:39
[2023-06-01 06:07] LABS: BASOPHILS # (AUTO) 0.1 10^3/uL (0.0-0.1); BASOPHILS % (AUTO) 1 % (0-10); EOSINOPHILS # (AUTO) 0.1 10^3/uL (0.0-0.3); EOSINOPHILS % (AUTO) 2 % (0-10); HEMATOCRIT 28 % (40-54); HEMOGLOBIN 8.9 g/dL (13.3-17.7); LYMPHOCYTES # (AUTO) 2.1 10^3/uL (1.0-4.0); LYMPHOCYTES % (AUTO) 30 % (12-44); MEAN CORPUSCULAR HEMOGLOBIN 31 pg (25-34); MEAN CORPUSCULAR HGB CONC 32 g/dL (32-36); MEAN CORPUSCULAR VOLUME 98 fL (80-99); MEAN PLATELET VOLUME 10.1 fL (9.0-12.2); MONOCYTES # (AUTO) 0.8 10^3/uL (0.0-1.0); MONOCYTES % (AUTO) 11 % (0-12); NEUTROPHILS # (AUTO) 3.9 10^3/uL (1.8-7.8); NEUTROPHILS % (AUTO) 55 % (42-75); PLATELET COUNT 307 10^3/uL (130-400)
[2023-06-01 06:20] LABS: ALBUMIN 2.8 GM/DL (3.2-4.5); BILIRUBIN,TOTAL 2.9 MG/DL (0.1-1.0); CALCIUM 8.4 MG/DL (8.5-10.1); CREATININE SERUM 1.67 MG/DL (0.60-1.30); POTASSIUM 3.5 MMOL/L (3.6-5.0); TOTAL PROTEIN 6.7 GM/DL (6.4-8.2)
[2023-06-01] MEDS: inSUlin ASPART 1 UNIT/0.01 ML (PER UNIT) SC SCH ×4 (06:24→21:44)
[2023-06-01] MEDS: THERAPEUTIC MULTIVITAMIN W/MINERALS TABLET PO SCH (06:24)
[2023-06-01] MEDS: VITAMIN D3 25 MCG (1,000 UNITS) TABLET PO SCH (08:27)
[2023-06-01] MEDS: TICAGRELOR 90 MG TABLET (BRILINTA) PO SCH ×2 (08:28→20:36)
[2023-06-01] MEDS: LACTOBACILLUS ACIDOPHILUS (PROBIOTIC) CAPSULE PO SCH ×2 (08:28→20:35)
[2023-06-01] MEDS: MIDODRINE 10 MG TABLET PO SCH ×2 (08:28→17:47)
[2023-06-01] MEDS: ACETAMINOPHEN 325 MG TABLET PO PRN (08:28)
[2023-06-01] MEDS: ASPIRIN 81 MG CHEWABLE TABLET PO SCH (08:28)
[2023-06-01] MEDS: PANTOPRAZOLE 40 MG TABLET PO SCH (08:28)
[2023-06-01] MEDS: inSUlin DETERMIR 1 UNIT/0.01 ML (CHARGE PER UNIT) SQ SCH (08:33)
[2023-06-01] MEDS: SENNA W/DOCUSATE TABLET PO SCH ×2 (08:35→20:35)
[2023-06-01] MEDS: DOCUSATE SODIUM 100 MG CAPSULE PO SCH ×2 (08:35→20:36)
[2023-06-01 09:00] VITALS: BP 104/67
[2023-06-01] MEDS ORDERED: FOLIC ACID PO SCH (09:00)
[2023-06-01] MEDS ORDERED: [UNRECOGNIZED DRUG - OTHER] PO SCH (09:00)
[2023-06-01] MEDS ORDERED: VITAMIN B COMP W C PO SCH (09:00)
[2023-06-01] MEDS ORDERED: NON-FORMULARY MEDICATION 1 EA EA (Insulin Glargine,Hum.rec.anlog (Lantus) 10 UNIT) SQ SCH (09:00)
[2023-06-01 10:00] VITALS: BP 95/56
--- NOTE | 2023-06-01 10:11 | Physical Therapy Daily Note ---
PT Daily Note-Current Subjective Pt presents supine in bed. Pt agrees to tx. Pt denies pain. Pain Section J - Health Conditions 1. Rarely or not at all 2. Occasionally 3. Frequently 4. Almost constantly 8. Unable to answer Pain Effect on Sleep: 0 Pain Interference with Therapy: 0 Pain Interference w/Day-to-Day: 0 Transfers SCALE: Activities may be completed with or without assistive devices. 2-Qhizawqqvc-pjnczet completes the activity by him/herself with no assistance from a helper. 5-Set-up or Clean-up Assistance-helper sets up or cleans up; patient completes activity. [place] assists only prior to or following the activity. 4-Supervision or Touching Assistance-helper provides verbal cues and/or touching/steadying and/or contact guard assistance as patient completes activity. Assistance may be provided throughout the activity or intermittently. 3-Partial/Moderate Assistance-helper does LESS THAN HALF the effort. [place] lifts, holds or supports trunk or limbs, but provides less than half the effort. 2-Substantial/Maximal Assistance-helper does MORE THAN HALF the effort. [place] lifts or holds trunk or limbs and provides more than half the effort. 5-Uwyclmlpv-xkofol does ALL the effort. Patient does none of the effort to co mplete the activity. Or, the assistance of 2 or more helpers is required for the patient to complete the activity. If activity was not attempted, code reason: 7-Patient Refused. 9-Not Applicable-not attempted and the patient did not perform the activity before the current illness, exacerbation or injury. 10-Not Attempted due to Environmental Limitations-(lack of equipment, weather restraints, etc.). 88-Not Attempted due to Medical Conditions or Safety Concerns. Roll Left & Right (QC): 5 Sit to Lying (QC): 6 Lying to Sitting/Side of Bed(Q: 6 Sit to Stand (QC): 6 Chair/Hof-lc-Towso Xfer(QC): 6 Toilet Transfer (QC): 6 Weight Bearing Full Weight Bearing Full Weight Bearing Gait Training Does the Patient Walk?: Yes Walk 10 feet (QC): 6 Walk 50 ft with 2 Turns(QC): 5 Gait Assistive Device: FWW Pt amb 80' from room<>PT gym. Exercises THER EX (HEP): (B) LE /c Red Ther Band x 20: Hip flex, Hip ABD, Hip ADD, HS curls, LAQ. (B) /c Red Ther Band Ankle PF, Ankle DF x 30. NuStep Minutes: 5 NuStep Workload: 6 Treatments HVAC INSTALLATION TECHNICIAN checked vitals while pt in bed /a tx: 94 O2, 113HR. Pt amb from room<>PT gym. Pt bicycled on NuStep for 5 min /c workload of 6. Pt conducted (B) LE ther ex. HVAC INSTALLATION TECHNICIAN gave pt printed HEP and red ther band. Pt vitals during PT: 97 O2, 132HR. Pt amb from PT gym<>room. Pt utilized restroom /c FWW, (I). Pt tx was ended with pt in bed, nursing staff in room and all needs met. Assessment Current Status: Good Progress Pt was motivated and willing to conduct PT. Pt needed vc's to slow down repetitions for better muscle control. PT Emergency Medicine Physician Goals Emergency Medicine Physician Goals PT Emergency Medicine Physician Goals Time Frame: Jun 14, 2023 Roll Left & Right (QC): 6 Sit to Lying (QC): 6 Lying-Sitting on Side/Bed(QC): 6 Sit to Stand (QC): 6 Chair/Ndk-jw-Uxwwd Xfer(QC): 6 (/c FWW or cane) Toilet Transfer (QC): 6 (/c FWW ) Car Transfer (QC): 6 (/c FWW and safe technique consistently) Does the Patient Walk: Yes Walk 10 feet (QC): 6 (/c FWW or cane) Walk 50ft with 2 Turns (QC): 6 (/c FWW or cane) Walk 150 ft (QC): 6 (/c FWW or cane) Walking 10ft on Uneven Surface: 6 (/c FWW or cane) 1 Step (curb) (QC): 6 (/c FWW or cane and rail) 4 Steps (QC): 6 (/c (B) rails /c safe technique and zachery) 12 Steps (QC): 6 (/c (B) rails /c safe technique and zachery) Picking up an Object (QC): 6 Does the Pt use WC or Scooter?: No Wheel 50 feet with 2 turns (QC: 9 Wheel 150 feet: 9 PT Plan Problem List Problem List: Functional Strength Treatment/Plan Treatment Plan: Continue Plan of Care Treatment Plan: Bed Mobility, Education, Functional Activity Grace, Functional Strength, Group Therapy, Gait, Safety, Therapeutic Exercise, Transfers Treatment Duration: Jun 14, 2023 Frequency: At least 5 of 7 days/Wk (IRF) Estimated Hrs Per Day: 1.5 hours per day Patient and/or Family Agrees t: Yes Safety Risks/Education Patient Education: Correct Positioning Teaching Recipient: Patient Teaching Methods: Discussion Response to Teaching: Verbalize Understanding Discharge Recommendations Plan Continue with tx per pt POC. Time Time In: 844 Time Out: 924 DATE: Jun 01, 2023 Total Billed Treatment Time: 40 Total Billed Treatment 1, EX2, FA SONDRA MAN PTA Jun 01, 2023 10:11
[2023-06-01 12:00] VITALS: BP 117/76
[2023-06-01 12:05] VITALS: BP 93/56
[2023-06-01 13:26] VITALS: BP 110/76
[2023-06-01] MEDS: BISACODYL 10 MG SUPPOSITORY PR PRN (17:49)
[2023-06-01 20:00] VITALS: BP 110/69
[2023-06-02] MEDS: ACETAMINOPHEN 325 MG TABLET PO PRN ×3 (00:28→09:39)
[2023-06-02] MEDS: THERAPEUTIC MULTIVITAMIN W/MINERALS TABLET PO SCH (05:11)
[2023-06-02] MEDS: inSUlin ASPART 1 UNIT/0.01 ML (PER UNIT) SC SCH ×4 (05:12→21:35)
[2023-06-02 07:41] VITALS: BP 111/72
[2023-06-02 07:54] VITALS: BP 111/72
[2023-06-02 08:50] VITALS: BP 106/71
[2023-06-02] MEDS: VITAMIN D3 25 MCG (1,000 UNITS) TABLET PO SCH (08:52)
[2023-06-02] MEDS: inSUlin DETERMIR 1 UNIT/0.01 ML (CHARGE PER UNIT) SQ SCH (08:52)
[2023-06-02] MEDS: LACTOBACILLUS ACIDOPHILUS (PROBIOTIC) CAPSULE PO SCH ×2 (08:52→21:35)
[2023-06-02] MEDS: TICAGRELOR 90 MG TABLET (BRILINTA) PO SCH ×2 (08:53→21:35)
[2023-06-02] MEDS: BISACODYL 10 MG SUPPOSITORY PR PRN (08:53)
[2023-06-02] MEDS: ASPIRIN 81 MG CHEWABLE TABLET PO SCH (08:53)
[2023-06-02] MEDS: MIDODRINE 10 MG TABLET PO SCH ×2 (08:53→17:28)
[2023-06-02] MEDS: DOCUSATE SODIUM 100 MG CAPSULE PO SCH ×2 (08:53→21:36)
[2023-06-02] MEDS: PANTOPRAZOLE 40 MG TABLET PO SCH (08:53)
[2023-06-02] MEDS: SENNA W/DOCUSATE TABLET PO SCH ×2 (08:53→21:36)
--- NOTE | 2023-06-02 10:16 | PM&R Progress Note ---
Subjective HPI/CC On Admission Date Seen by Provider: Jun 02, 2023 Time Seen by Provider: 12:00 Subjective/Events-last exam 06/02/2023: Doing better Less pain Muscle pain was reported Hydrocodone initiated 06/01/2023: Patient doing well Labs reviewed Creatinine 1.37 Patient feels good Denies any pain Still impulsive Review of Systems General: Fatigue, Malaise Objective Exam Vital Signs Vital Signs Date Time Temp Pulse Resp B/P (MAP) Pulse Ox O2 Delivery O2 Flow Rate FiO2 06/02/23 09:31 Room Air 06/02/23 08:50 36.2 114 18 106/71 (83) 99 Capillary Refill : General Appearance: No Apparent Distress, WD/WN, Anxious, Chronically ill HEENT: PERRL/EOMI, Normal ENT Inspection, Pharynx Normal Neck: Full Range of Motion, Normal Inspection, Non Tender, Supple, Carotid Bruit Respiratory: Chest Non Tender, Lungs Clear, Normal Breath Sounds, No Accessory Muscle Use, No Respiratory Distress Cardiovascular: Regular Rate, Rhythm, No Edema, No Gallop, No JVD, No Murmur, Normal Peripheral Pulses Gastrointestinal: Normal Bowel Sounds, No Organomegaly, No Pulsatile Mass, Non Tender, Soft Back: Normal Inspection, No CVA Tenderness, No Vertebral Tenderness Extremity: Normal Capillary Refill, Normal Inspection, Normal Range of Motion, Non Tender, No Calf Tenderness, No Pedal Edema Neurologic/Psychiatric: Alert, Oriented x3, Normal Mood/Affect, 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 FIM Transfers Therapy Code Descriptions/Definitions Functional [place] Measure: 0=Not Assessed/NA 4=Minimal Assistance 1=Total Assistance 5=Supervision or Setup 2=Maximal Assistance 6=Modified [place] 3=Moderate Assistance 7=Complete IndependenceSCALE: Activities may be completed with or without assistive devices. 9-Rwdyyyjfeo-cjslvwj completes the activity by him/herself with no assistance from a helper. 5-Set-up or Clean-up Assistance-helper sets up or cleans up; patient completes activity. [place] assists only prior to or following the activity. 4-Supervision or Touching Assistance-helper provides verbal cues and/or touching/steadying and/or contact guard assistance as patient completes activity. Assistance may be provided throughout the activity or intermittently. 3-Partial/Moderate Assistance-helper does LESS THAN HALF the effort. [place] lifts, holds or supports trunk or limbs, but provides less than half the effort. 2-Substantial/Maximal Assistance-helper does MORE THAN HALF the effort. [place] lifts or holds trunk or limbs and provides more than half the effort. 8-Vzgxcavxo-htpyxh does ALL the effort. Patient does none of the effort to complete the activity. Or, the assistance of 2 or more helpers is required for the patient to complete the activity. If activity was not attempted, code reason: 7-Patient Refused. 9-Not Applicable-not attempted and the patient did not perform the activity before the current illness, exacerbation or injury. 10-Not Attempted due to Environmental Limitations-(lack of equipment, weather restraints, etc.). 88-Not Attempted due to Medical Conditions or Safety Concerns. Roll Left to Right (QC): 5 Sit to Lying (QC): 6 Sit to Stand (QC): 6 Chair/Ccs-bf-Frwss Xfer(QC): 6 Car Transfer (QC): 3 (Mod (A) as patient attempted to step into car prior to sitting - had to stop patient, have him correct balance and sit prior to swinging legs in. ) Gait Training Does the Patient Walk?: Yes Walk 10 feet (QC): 6 Walk 50 ft with 2 Turns(QC): 5 Walk 150 ft (QC): 88 (limited by endurance) Walking 10ft/uneven surface-QC: 3 (min (A) with FWW) Gait Assistive Device: FWW Wheelchair Training Does the Pt Use a Wheelchair?: No Wheel 50 ft with 2 turns (QC): 9 Wheel 150 ft (QC): 9 Stair Training 1 Step (curb) (QC): 3 (mod (A) of 1 for stability and secure stepping due to leg weakness) 4 Steps (QC): 3 (min-mod (A) of 1 /c (B) rails /c v.c. to slow down) 12 Steps (QC): 3 (min-mod (A) of 1 /c (B) rails /c v.c. to slow down) Balance Picking up an Object (QC): 3 (Min (A) using lower cross bar of walker for stability) ADL-Treatment Eating (QC): 6 (Per pt report) Oral Hygiene (QC): 6 Shower/Bathe Self (QC): 4 Upper Body Dressing (QC): 5 Lower Body Dressing (QC): 4 On/Off Footwear (QC): 5 Toileting Hygiene (QC): 4 (SBA) Toilet Transfer (QC): 4 (SBA) Assessment/Plan Assessment and Plan Assess & Plan/Chief Complaint Assessment: CVA s/p CABG s/p acute renal, liver, and respiratory failure s/p cardiogenic shock s/p tracheostomy and PEG tube T2DM systolic CHF HTN HLD Anemia Elevated liver enzymes Chronic kidney disease Plan: PT OT Home meds Monitor closely 06/01/2023: Supportive care Monitor closely 06/02/2023: Monitor closely Sugar management (1) CVA (cerebral vascular accident) SANDOR GARCES DO Jun 02, 2023 10:16
[2023-06-02] MEDS: GABAPENTIN 100 MG CAPSULE PO PRN ×2 (13:20→21:36)
[2023-06-02] MEDS: HYDROcodone/ACETAMINOPHEN 5 MG/325 MG TABLET PO PRN ×3 (13:22→21:36)
[2023-06-02 19:54] VITALS: BP 115/76
[2023-06-02 20:55] VITALS: BP 111/74
[2023-06-03] MEDS: HYDROcodone/ACETAMINOPHEN 5 MG/325 MG TABLET PO PRN ×5 (02:47→22:15)
--- NOTE | 2023-06-03 05:07 | PM&R Progress Note ---
Subjective HPI/CC On Admission Date Seen by Provider: Jun 03, 2023 Time Seen by Provider: 08:30 Subjective/Events-last exam 06/03/2023: Patient doing well Blood sugars improved Supportive care we will continue 06/02/2023: Doing better Less pain Muscle pain was reported Hydrocodone initiated 06/01/2023: Patient doing well Labs reviewed Creatinine 1.37 Patient feels good Denies any pain Still impulsive Review of Systems General: Fatigue, Malaise Objective Exam Vital Signs Vital Signs Date Time Temp Pulse Resp B/P (MAP) Pulse Ox O2 Delivery O2 Flow Rate FiO2 06/03/23 21:39 36.8 108 16 102/70 (81) 100 Room Air Capillary Refill : General Appearance: No Apparent Distress, WD/WN, Anxious, Chronically ill HEENT: PERRL/EOMI, Normal ENT Inspection, Pharynx Normal Neck: Full Range of Motion, Normal Inspection, Non Tender, Supple, Carotid B ruit Respiratory: Chest Non Tender, Lungs Clear, Normal Breath Sounds, No Accessory Muscle Use, No Respiratory Distress Cardiovascular: Regular Rate, Rhythm, No Edema, No Gallop, No JVD, No Murmur, Normal Peripheral Pulses Gastrointestinal: Normal Bowel Sounds, No Organomegaly, No Pulsatile Mass, Non Tender, Soft Back: Normal Inspection, No CVA Tenderness, No Vertebral Tenderness Extremity: Normal Capillary Refill, Normal Inspection, Normal Range of Motion, Non Tender, No Calf Tenderness, No Pedal Edema Neurologic/Psychiatric: Alert, Oriented x3, Normal Mood/Affect, 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 FIM Transfers Therapy Code Descriptions/Definitions Functional [place] Measure: 0=Not Assessed/NA 4=Minimal Assistance 1=Total Assistance 5=Supervision or Setup 2=Maximal Assistance 6=Modified [place] 3=Moderate Assistance 7=Complete IndependenceSCALE: Activities may be completed with or without assistive devices. 5-Ltslxaznds-sssepun completes the activity by him/herself with no assistance from a helper. 5-Set-up or Clean-up Assistance-helper sets up or cleans up; patient completes activity. [place] assists only prior to or following the activity. 4-Supervision or Touching Assistance-helper provides verbal cues and/or touc yo/steadying and/or contact guard assistance as patient completes activity. Assistance may be provided throughout the activity or intermittently. 3-Partial/Moderate Assistance-helper does LESS THAN HALF the effort. [place] lifts, holds or supports trunk or limbs, but provides less than half the effort. 2-Substantial/Maximal Assistance-helper does MORE THAN HALF the effort. [place] lifts or holds trunk or limbs and provides more than half the effort. 8-Ppxbheacb-arvhey does ALL the effort. Patient does none of the effort to complete the activity. Or, the assistance of 2 or more helpers is required for the patient to complete the activity. If activity was not attempted, code reason: 7-Patient Refused. 9-Not Applicable-not attempted and the patient did not perform the activity be fore the current illness, exacerbation or injury. 10-Not Attempted due to Environmental Limitations-(lack of equipment, weather restraints, etc.). 88-Not Attempted due to Medical Conditions or Safety Concerns. Roll Left to Right (QC): 5 Sit to Lying (QC): 6 Sit to Stand (QC): 6 Chair/Ugp-jm-Cwdxp Xfer(QC): 6 Car Transfer (QC): 3 (Mod (A) as patient attempted to step into car prior to sitting - had to stop patient, have him correct balance and sit prior to swinging legs in. ) Gait Training Does the Patient Walk?: Yes Walk 10 feet (QC): 6 Walk 50 ft with 2 Turns(QC): 5 Walk 150 ft (QC): 88 (limited by endurance) Walking 10ft/uneven surface-QC: 3 (min (A) with FWW) Gait Assistive Device: FWW Wheelchair Training Does the Pt Use a Wheelchair?: No Wheel 50 ft with 2 turns (QC): 9 Wheel 150 ft (QC): 9 Stair Training 1 Step (curb) (QC): 3 (mod (A) of 1 for stability and secure stepping due to leg weakness) 4 Steps (QC): 3 (min-mod (A) of 1 /c (B) rails /c v.c. to slow down) 12 Steps (QC): 3 (min-mod (A) of 1 /c (B) rails /c v.c. to slow down) Balance Picking up an Object (QC): 3 (Min (A) using lower cross bar of walker for stability) ADL-Treatment Eating (QC): 6 (Per pt report) Oral Hygiene (QC): 6 Shower/Bathe Self (QC): 4 Upper Body Dressing (QC): 5 Lower Body Dressing (QC): 4 On/Off Footwear (QC): 5 Toileting Hygiene (QC): 4 (SBA) Toilet Transfer (QC): 4 (SBA) Assessment/Plan Assessment and Plan Assess & Plan/Chief Complaint Assessment: CVA s/p CABG s/p acute renal, liver, and respiratory failure s/p cardiogenic shock s/p tracheostomy and PEG tube T2DM systolic CHF HTN HLD Anemia Elevated liver enzymes Chronic kidney disease Plan: PT OT Home meds Monitor closely 06/01/2023: Supportive care Monitor closely 06/02/2023: Monitor closely Sugar management 06/03/2023: Monitor closely Fall risk (1) CVA (cerebral vascular accident) SANDOR GARCES DO Jun 03, 2023 05:07
[2023-06-03 06:11] LABS: BASOPHILS # (AUTO) 0.1 10^3/uL (0.0-0.1); BASOPHILS % (AUTO) 1 % (0-10); EOSINOPHILS # (AUTO) 0.1 10^3/uL (0.0-0.3); EOSINOPHILS % (AUTO) 1 % (0-10); HEMATOCRIT 28 % (40-54); HEMOGLOBIN 8.8 g/dL (13.3-17.7); LYMPHOCYTES % (AUTO) 31 % (12-44); MEAN CORPUSCULAR HEMOGLOBIN 32 pg (25-34); MEAN CORPUSCULAR HGB CONC 32 g/dL (32-36); MEAN CORPUSCULAR VOLUME 99 fL (80-99); MEAN PLATELET VOLUME 10.2 fL (9.0-12.2); MONOCYTES # (AUTO) 0.9 10^3/uL (0.0-1.0); MONOCYTES % (AUTO) 9 % (0-12); NEUTROPHILS # (AUTO) 5.6 10^3/uL (1.8-7.8); NEUTROPHILS % (AUTO) 57 % (42-75); PLATELET COUNT 293 10^3/uL (130-400); WHITE BLOOD COUNT 9.9 10^3/uL (4.3-11.0)
[2023-06-03 06:28] LABS: ALBUMIN 2.8 GM/DL (3.2-4.5); BILIRUBIN,TOTAL 2.5 MG/DL (0.1-1.0); CALCIUM 8.4 MG/DL (8.5-10.1); CREATININE SERUM 1.28 MG/DL (0.60-1.30); POTASSIUM 4.1 MMOL/L (3.6-5.0); TOTAL PROTEIN 6.7 GM/DL (6.4-8.2)
[2023-06-03] MEDS: inSUlin ASPART 1 UNIT/0.01 ML (PER UNIT) SC SCH ×4 (06:39→21:00)
[2023-06-03] MEDS: THERAPEUTIC MULTIVITAMIN W/MINERALS TABLET PO SCH (06:39)
[2023-06-03] MEDS: GABAPENTIN 100 MG CAPSULE PO PRN ×2 (06:39→17:53)
--- NOTE | 2023-06-03 07:47 | Occupational Ther Daily Note ---
OT Current Status-Daily Note Subjective Pt in bed, agreeable to OT Tx. He feels like he has gotten stronger throughout the weekend. Mental Status/Objective Patient Orientation: Normal For Age ADL-Treatment Therapy Code Descriptions/Definitions Functional [place] Measure: 0=Not Assessed/NA 4=Minimal Assistance 1=Total Assistance 5=Supervision or Setup 2=Maximal Assistance 6=Modified [place] 3=Moderate Assistance 7=Complete IndependenceSCALE: Activities may be completed with or without assistive devices. 3-Gezvelkjsu-wzknypy completes the activity by him/herself with no assistance from a helper. 5-Set-up or Clean-up Assistance-helper sets up or cleans up; patient completes activity. [place] assists only prior to or following the activity. 4-Supervision or Touching Assistance-helper provides verbal cues and/or touching/steadying and/or contact guard assistance as patient completes activity. Assistance may be provided throughout the activity or intermittently. 3-Partial/Moderate Assistance-helper does LESS THAN HALF the effort. [place] lifts, holds or supports trunk or limbs, but provides less than half the effort. 2-Substantial/Maximal Assistance-helper does MORE THAN HALF the effort. [place] lifts or holds trunk or limbs and provides more than half the effort. 5-[place]-lxhyiu does ALL the effort. Patient does none of the effort to complete the activity. Or, the assistance of 2 or more helpers is required for the patient to complete the activity. If activity was not attempted, code reason: 7-Patient Refused. 9-Not Applicable-not attempted and the patient did not perform the activity before the current illness, exacerbation or injury. 10-Not Attempted due to Environmental Limitations-(lack of equipment, weather restraints, etc.). 88-Not Attempted due to Medical Conditions or Safety Concerns. Eating (QC): 6 Oral Hygiene (QC): 6 (seated) Shower/Bathe Self (QC): 5 (set up to cover IV access/lines) Upper Body Dressing (QC): 6 Lower Body Dressing (QC): 6 On/Off Footwear: 6 (gripper socks.) Other Treatment Pt in bed, transferred supine to sit EOB, IND. Pt used FWW to gather clothes from his bag, and then into bathroom. Pt sat on BSC to doff clothes, then completed shower after set up. Pt able to dry off, then don clothes. Pt sat at sink to complete grooming tasks, IND (shaving, oral care, deodorant, etc). Pt returned to EOB using FWW, able to complete footwear at EOB independently. Pt transferred supine, IND. Post tx, pt in bed, call light in reach and all needs met. Education OT Patient Education: Correct positioning, Energy conservation, Modified ADL techniques, Progress toward Goal/Update tx plan, Purpose of tx/functional activities, Rehab process Teaching Recipient: Patient Teaching Methods: Discussion Response to Teaching: Verbalize Understanding OT Dry Wall Applicator Goals Intermediate Goals Time Frame: Jun 21, 2023 Acute change in mental status: 0 Inattention: 0 Disorganized thinkin Altered level of consciousness: 0 Eating (QC): 6 Oral Hygiene (QC): 6 Toileting Hygiene (QC): 6 Shower/Bathe Self (QC): 6 Upper Body Dressing (QC): 6 Lower Body Dressing (QC): 6 On/Off Footwear (QC): 6 Additional Goals: 1-Demonstrate ADL Tasks, 2-Verbalize Understanding, 3- ImproveStrength/Grace 1=Demonstrate adherence to instructed precautions during ADL tasks. 2=Patient will verbalize/demonstrate understanding of assistive devices/modifications for ADL. 3=Patient will improve strength/tolerance for activity to enable patient to perform ADL's. OT Education/Plan Problem List/Assessment Assessment: Decreased Activ Tolerance, Decreased UE Strength, Impaired I ADL's Discharge Recommendations Plan/Recommendations: Continue POC Treatment Plan/Plan of Care Patient would benefit from OT for education, treatment and training to promote independence in ADL's, mobility, safety and/or upper extremity function for ADL's. Plan of Care: ADL Retraining, Functional Mobility, Group Exercise/Act as Ind, UE Funct Exercise/Act Treatment Duration: Jun 21, 2023 Frequency: At least 5 of 7 days/Wk (IRF) Estimated Hrs Per Day: Other (75 mins per day) Agreement: Yes Rehab Potential: Good Time Start Time: 07:15 Stop Time: 08:30 DATE: Jun 03, 2023 Total Time Billed (hr/min): 75 Billed Treatment Time 1, ADL 5 PÉREZ REED OT Jun 03, 2023 07:47
[2023-06-03 08:00] VITALS: BP 118/81
[2023-06-03] MEDS: PANTOPRAZOLE 40 MG TABLET PO SCH (08:47)
[2023-06-03] MEDS: VITAMIN D3 25 MCG (1,000 UNITS) TABLET PO SCH (08:47)
[2023-06-03] MEDS: LACTOBACILLUS ACIDOPHILUS (PROBIOTIC) CAPSULE PO SCH ×2 (08:47→20:57)
[2023-06-03] MEDS: ASPIRIN 81 MG CHEWABLE TABLET PO SCH (08:47)
[2023-06-03] MEDS: TICAGRELOR 90 MG TABLET (BRILINTA) PO SCH ×2 (08:48→20:58)
[2023-06-03] MEDS: inSUlin DETERMIR 1 UNIT/0.01 ML (CHARGE PER UNIT) SQ SCH (08:52)
[2023-06-03] MEDS: MIDODRINE 10 MG TABLET PO SCH ×2 (09:03→17:43)
[2023-06-03] MEDS: SENNA W/DOCUSATE TABLET PO SCH ×2 (09:03→20:57)
[2023-06-03] MEDS: DOCUSATE SODIUM 100 MG CAPSULE PO SCH ×2 (09:03→20:57)
[2023-06-03 09:28] VITALS: BP 118/81
--- NOTE | 2023-06-03 11:30 | Physician Query Clarification ---
PQ-Further Specificity Admission/Discharge Admission Date: May 31, 2023 at 11:18 Discharge Date: Dr. 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 Please document a response in the Progress Notes or Discharge Summary. 1. Motor weakness meaning musculoskeletal symptoms of limbs 2. Motor weakness meaning quadraparesis (subtle all extremities) 3. Other, with explanation of the clinical findings. 4. Clinically undetermined, no explanation for the clinical findings. PHYSICIAN RESPONSE Can you specify per above: 1 In responding to this query, please exercise your independent professional judgment. The purpose of this communication is to more accurately reflect the complexity of your patients condition. The fact that a question is asked does not imply that any particular answer is desired or expected. Thank you for your timely response to this clarification. Requestors name: Yvon THIS PHYSICIAN QUERY FORM IS A PERMANENT PART OF THE MEDICAL RECORD YVON IGNACIO Jun 03, 2023 11:30 SANDOR FULTON DO Jun 03, 2023 20:42
[2023-06-03] MEDS: ACETAMINOPHEN 325 MG TABLET PO PRN (12:18)
--- NOTE | 2023-06-03 16:07 | Physical Therapy Daily Note ---
PT Daily Note-Current Subjective Patient eager to participate, but stated his legs were killing him after Saturday's treatment. States he also had some nerve pain in his legs last night. Pain Section J - Health Conditions 1. Rarely or not at all 2. Occasionally 3. Frequently 4. Almost constantly 8. Unable to answer Pain Effect on Sleep: 0 Pain Interference with Therapy: 0 Pain Interference w/Day-to-Day: 0 Appearance Patient laying in bed prior to session. Patient able to don shoes with the aide of a long handled shoe horn with v.c. and instruction on how to place shoe horn. Transfers SCALE: Activities may be completed with or without assistive devices. 8-Txyjybxhpt-kaumvfu completes the activity by him/herself with no assistance from a helper. 5-Set-up or Clean-up Assistance-helper sets up or cleans up; patient completes activity. [place] assists only prior to or following the activity. 4-Supervision or Touching Assistance-helper provides verbal cues and/or touching/steadying and/or contact guard assistance as patient completes activity. Assistance may be provided throughout the activity or intermittently. 3-Partial/Moderate Assistance-helper does LESS THAN HALF the effort. [place] lifts, holds or supports trunk or limbs, but provides less than half the effort. 2-Substantial/Maximal Assistance-helper does MORE THAN HALF the effort. [place] lifts or holds trunk or limbs and provides more than half the effort. 4-Bqtvysyho-oqnebc does ALL the effort. Patient does none of the effort to complete the activity. Or, the assistance of 2 or more helpers is required for the patient to complete the activity. If activity was not attempted, code reason: 7-Patient Refused. 9-Not Applicable-not attempted and the patient did not perform the activity before the current illness, exacerbation or injury. 10-Not Attempted due to Environmental Limitations-(lack of equipment, weather restraints, etc.). 88-Not Attempted due to Medical Conditions or Safety Concerns. Lying to Sitting/Side of Bed(Q: 6 (/c bedrail use.) Toilet Transfer (QC): 5 (set up /c FWW use. Managed own clothing and hygiene (I). Walked to sink SBA afterward to wash hands (I) at sink.) Weight Bearing Full Weight Bearing Full Weight Bearing Gait Training Walk 150 ft (QC): 4 (SBA 250' x 2 without rest with FWW with improved stepping strategy and zachery. Was pursed-lip breathing during gait as instructed by ano ther therapist ) Gait Assistive Device: FWW Exercises Standing exercise in // bars: Heels/toes up x 10 with cues to slow transition. Standing on blue foam in static stance with eyes closed, 10 reps x :10. 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 x 10 2" foam lateral step up (L) with (R) hip abd x 10 *Seated rest break 2" foam lateral step up (R) with (L) hip abd x 10 *seated rest break Mini squats x 10 *Seated rest break Seated hamstring stretch with mod cues 2 x :15 (B) Supine manual hamstring stretches, 3 x :15 with heel cord stretch (B) Supine manual piriformis stretch 1 x :15 (B) Supine self-piriformis stretch 2 x :15 (B) Supine self-hamstring stretch using pillow case 3 x :15 (B) NuStep Minutes: 5 (/c 1 rest break to check O2 sats = 99% with HR 117.) NuStep Workload: 6 Assessment Current Status: Good Progress May benefit from Cardiac Rehab at D/C. Endurance & general weakness are main limiting factors. PT Retail Wireless Associate Goals Retail Wireless Associate Goals PT Senior Living Goals Time Frame: Jun 14, 2023 Roll Left & Right (QC): 6 Sit to Lying (QC): 6 Lying-Sitting on Side/Bed(QC): 6 Sit to Stand (QC): 6 Chair/Gzt-xd-Zqiho Xfer(QC): 6 (/c FWW or cane) Toilet Transfer (QC): 6 (/c FWW ) Car Transfer (QC): 6 (/c FWW and safe technique consistently) Does the Patient Walk: Yes Walk 10 feet (QC): 6 (/c FWW or cane) Walk 50ft with 2 Turns (QC): 6 (/c FWW or cane) Walk 150 ft (QC): 6 (/c FWW or cane) Walking 10ft on Uneven Surface: 6 (/c FWW or cane) 1 Step (curb) (QC): 6 (/c FWW or cane and rail) 4 Steps (QC): 6 (/c (B) rails /c safe technique and zachery) 12 Steps (QC): 6 (/c (B) rails /c safe technique and zachery) Picking up an Object (QC): 6 Does the Pt use WC or Scooter?: No Wheel 50 feet with 2 turns (QC: 9 Wheel 150 feet: 9 PT Plan Treatment/Plan Treatment Plan: Continue Plan of Care Treatment Plan: Bed Mobility, Education, Functional Activity Grace, Functional Strength, Group Therapy, Gait, Safety, Therapeutic Exercise, Transfers Treatment Duration: Jun 14, 2023 Frequency: At least 5 of 7 days/Wk (IRF) Estimated Hrs Per Day: 1.5 hours per day Patient and/or Family Agrees t: Yes Safety Risks/Education Recommend FWW for home use for safe mobility at this time. He is able to safely utilize a FWW to meet his balance and endurance needs for safe and (I) gait. A cane does not meet the patient's needs at this time. Discharge Recommendations Equpiment Recommendations-D/C: Front Wheeled Walker Time Time In: 1000 Time Out: 1115 DATE: Jun 03, 2023 Total Billed Treatment Time: 75 Total Billed Treatment 1FA, 1 GT, 3EX Kayla Perkins PT Jun 03, 2023 16:07
--- NOTE | 2023-06-03 16:25 | Speech Therapy Daily Note ---
Speech Daily Progress Note Subjective Date Seen by Provider: Jun 03, 2023 Time Seen by Provider: 13:05 The pt was alert and appropriate, agreeable to session with good participation. Objective The Cognitive Linguistic Quick Test (CLQT) was administered for comprehensive assessment of cognitive function. Results are as follows: Subtest Personal Facts 03/14 Symbol cancellation 06/16 Confrontation naming 05/14 Clock drawing 03/17* Story retelling 12/12* Symbol Trails 11/12* Generative naming 10/11* Design memory 12/08 Mazes 01/10* Design generation 02/14 *Indicates score falling below criterion cut score Cognitive domains: Attention mild Memory moderate Executive functions mild Language mild Visuospatial skills mild Clock drawing moderate Overall, the pt scored withing the mild range of impairment on the CLQT. Primary deficits were noted in the areas attention, planning, problem solving and short- term memory. Speech Short Term Goals Short Term Goals Short Term Goals Reassess cognitive function 06/03/23. Time Frame-ST days Speech Residential Goals Manager Change Goals The pt will demonstrate improved memory for up to 5 units of information with 90% accuracy. The pt will complete functional mathematical problem solving with 90% accuracy. Speech-Plan Treatment Plan Speech Therapy Treatment Plan: Continue Plan of Care Treatment Duration: May 31, 2023 Frequency: At least 5 of 7 days/Wk (IRF) Estimated Hrs Per Day: .5 hour per day Rehab Potential: Good Time Speech Therapy Time In: 13:05 Speech Therapy Time Out: 14:00 DATE: Jun 03, 2023 Total Billed Time: 55 Billed Treatment Time 1 SLTS (55 min) CHRISTINE SHORT Jun 03, 2023 16:25
[2023-06-03 20:31] VITALS: BP 114/82
[2023-06-03 21:39] VITALS: BP 102/70
[2023-06-04] MEDS: HYDROcodone/ACETAMINOPHEN 5 MG/325 MG TABLET PO PRN ×3 (01:56→20:42)
[2023-06-04] MEDS: GABAPENTIN 100 MG CAPSULE PO PRN ×3 (01:56→17:07)
[2023-06-04] MEDS: ACETAMINOPHEN 325 MG TABLET PO PRN ×2 (04:03→11:12)
[2023-06-04] MEDS: THERAPEUTIC MULTIVITAMIN W/MINERALS TABLET PO SCH (06:02)
[2023-06-04] MEDS: inSUlin ASPART 1 UNIT/0.01 ML (PER UNIT) SC SCH ×4 (06:13→21:32)
--- NOTE | 2023-06-04 07:44 | Occupational Ther Daily Note ---
OT Current Status-Daily Note Subjective Pt agreeable to OT Tx. ADL-Treatment Therapy Code Descriptions/Definitions Functional [place] Measure: 0=Not Assessed/NA 4=Minimal Assistance 1=Total Assistance 5=Supervision or Setup 2=Maximal Assistance 6=Modified [place] 3=Moderate Assistance 7=Complete IndependenceSCALE: Activities may be completed with or without assistive devices. 5-Mphruzmqyc-euqraxb completes the activity by him/herself with no assistance from a helper. 5-Set-up or Clean-up Assistance-helper sets up or cleans up; patient completes activity. [place] assists only prior to or following the activity. 4-Supervision or Touching Assistance-helper provides verbal cues and/or touching/steadying and/or contact guard assistance as patient completes activity. Assistance may be provided throughout the activity or intermittently. 3-Partial/Moderate Assistance-helper does LESS THAN HALF the effort. [place] lifts, holds or supports trunk or limbs, but provides less than half the effort. 2-Substantial/Maximal Assistance-helper does MORE THAN HALF the effort. [place] lifts or holds trunk or limbs and provides more than half the effort. 0-Cjabuhmve-oczrgt does ALL the effort. Patient does none of the effort to complete the activity. Or, the assistance of 2 or more helpers is required for the patient to complete the activity. If activity was not attempted, code reason: 7-Patient Refused. 9-Not Applicable-not attempted and the patient did not perform the activity before the current illness, exacerbation or injury. 10-Not Attempted due to Environmental Limitations-(lack of equipment, weather restraints, etc.). 88-Not Attempted due to Medical Conditions or Safety Concerns. Eating (QC): 6 Oral Hygiene (QC): 6 Shower/Bathe Self (QC): 5 Upper Body Dressing (QC): 6 Lower Body Dressing (QC): 6 On/Off Footwear: 6 Toileting Hygiene (QC): 6 Toilet Transfer (QC): 6 Other Treatment Pt agreeable to OT Tx. Pt used FWW to gather clothes from around his room, IND, then transferred into bathroom. Pt completed toileting, showering, dressing and grooming tasks, independently. Set up required for shower to cover IV/lines prior to shower. Pt performed functional mobility around [facility] common area/2nd floor using FWW, IND. Pt able to utilize pursed lip breathing without cues. Pt completed 3/5 UE exercises, 2x10 reps. Pt returned to his room, using FWW, IND. Post tx, pt EOB, call light in reach and all needs met. Education OT Patient Education: Correct positioning, Energy conservation, Modified ADL techniques, Progress toward Goal/Update tx plan, Purpose of tx/functional activities, Rehab process Teaching Recipient: Patient Teaching Methods: Discussion Response to Teaching: Verbalize Understanding OT Correction Goals Correction Goals Time Frame: Jun 21, 2023 Acute change in mental status: 0 Inattention: 0 Disorganized thinkin Altered level of consciousness: 0 Eating (QC): 6 Oral Hygiene (QC): 6 Toileting Hygiene (QC): 6 Shower/Bathe Self (QC): 6 Upper Body Dressing (QC): 6 Lower Body Dressing (QC): 6 On/Off Footwear (QC): 6 Additional Goals: 1-Demonstrate ADL Tasks, 2-Verbalize Understanding, 3- ImproveStrength/Grace 1=Demonstrate adherence to instructed precautions during ADL tasks. 2=Patient will verbalize/demonstrate understanding of assistive devices/modifications for ADL. 3=Patient will improve strength/tolerance for activity to enable patient to perform ADL's. OT Education/Plan Problem List/Assessment Assessment: Decreased Activ Tolerance, Decreased UE Strength, Impaired I ADL's Discharge Recommendations Plan/Recommendations: Continue POC Treatment Plan/Plan of Care Patient would benefit from OT for education, treatment and training to promote independence in ADL's, mobility, safety and/or upper extremity function for ADL's. Plan of Care: ADL Retraining, Functional Mobility, Group Exercise/Act as Ind, UE Funct Exercise/Act Treatment Duration: Jun 21, 2023 Frequency: At least 5 of 7 days/Wk (IRF) Estimated Hrs Per Day: Other (75 mins per day) Agreement: Yes Rehab Potential: Good Time Start Time: 07:15 Stop Time: 08:30 DATE: Jun 04, 2023 Total Time Billed (hr/min): 75 Billed Treatment Time 1, ADL 3 (50'), EX 2 (25') PÉREZ REED OT Jun 04, 2023 07:44
[2023-06-04 08:00] VITALS: BP 121/76
[2023-06-04] MEDS: SENNA W/DOCUSATE TABLET PO SCH ×2 (08:48→20:42)
[2023-06-04] MEDS: VITAMIN D3 25 MCG (1,000 UNITS) TABLET PO SCH (08:48)
[2023-06-04] MEDS: TICAGRELOR 90 MG TABLET (BRILINTA) PO SCH ×2 (08:48→20:42)
[2023-06-04] MEDS: inSUlin DETERMIR 1 UNIT/0.01 ML (CHARGE PER UNIT) SQ SCH (08:48)
[2023-06-04] MEDS: MIDODRINE 10 MG TABLET PO SCH ×2 (08:48→17:03)
[2023-06-04] MEDS: LACTOBACILLUS ACIDOPHILUS (PROBIOTIC) CAPSULE PO SCH ×2 (08:48→20:42)
[2023-06-04] MEDS: ASPIRIN 81 MG CHEWABLE TABLET PO SCH (08:48)
[2023-06-04] MEDS: DOCUSATE SODIUM 100 MG CAPSULE PO SCH ×2 (08:49→20:42)
[2023-06-04] MEDS: PANTOPRAZOLE 40 MG TABLET PO SCH (08:49)
--- NOTE | 2023-06-04 10:26 | PM&R Progress Note ---
Subjective HPI/CC On Admission Date Seen by Provider: Jun 04, 2023 Time Seen by Provider: 09:00 Subjective/Events-last exam 06/04/2023: Doing better Dysuria reported so will order UA No falls No pain 06/03/2023: Patient doing well Blood sugars improved Supportive care we will continue 06/02/2023: Doing better Less pain Muscle pain was reported Hydrocodone initiated 06/01/2023: Patient doing well Labs reviewed Creatinine 1.37 Patient feels good Denies any pain Still impulsive Review of Systems General: Fatigue, Malaise Objective Exam Vital Signs Vital Signs Date Time Temp Pulse Resp B/P (MAP) Pulse Ox O2 Delivery O2 Flow Rate FiO2 06/04/23 20:45 Room Air 06/04/23 19:36 37.1 114 16 120/81 (94) 99 Capillary Refill : General Appearance: No Apparent Distress, WD/WN, Anxious, Chronically ill HEENT: PERRL/EOMI, Normal ENT Inspection, Pharynx Normal Neck: Full Range of Motion, Normal Inspection, Non Tender, Supple, Carotid Bruit Respiratory: Chest Non Tender, Lungs Clear, Normal Breath Sounds, No Accessory Muscle Use, No Respiratory Distress Cardiovascular: Regular Rate, Rhythm, No Edema, No Gallop, No JVD, No Murmur, Normal Peripheral Pulses Gastrointestinal: Normal Bowel Sounds, No Organomegaly, No Pulsatile Mass, Non Tender, Soft Back: Normal Inspection, No CVA Tenderness, No Vertebral Tenderness Extremity: Normal Capillary Refill, Normal Inspection, Normal Range of Motion, Non Tender, No Calf Tenderness, No Pedal Edema Neurologic/Psychiatric: Alert, Oriented x3, Normal Mood/Affect, emergency medicine nurse practitioner II-XII Norm as Tested, Abnormal Gait, Motor Weakness (subtle all extremities, impulsive) Skin: Normal Color, Warm/Dry Lymphatic: No Adenopathy Results/Procedures Lab Patient resulted labs reviewed. FIM Transfers Therapy Code Descriptions/Definitions Functional [place] Measure: 0=Not Assessed/NA 4=Minimal Assistance 1=Total Assistance 5=Supervision or Setup 2=Maximal Assistance 6=Modified [place] 3=Moderate Assistance 7=Complete IndependenceSCALE: Activities may be completed with or without assistive devices. 1-Ctttpgyzbe-vlqcdhd completes the activity by him/herself with no assistance from a helper. 5-Set-up or Clean-up Assistance-helper sets up or cleans up; patient completes activity. [place] assists only prior to or following the activity. 4-Supervision or Touching Assistance-helper provides verbal cues and/or touching/steadying and/or contact guard assistance as patient completes activity. Assistance may be provided throughout the activity or intermittently. 3-Partial/Moderate Assistance-helper does LESS THAN HALF the effort. [place] lifts, holds or supports trunk or limbs, but provides less than half the effort. 2-Substantial/Maximal Assistance-helper does MORE THAN HALF the effort. [place] lifts or holds trunk or limbs and provides more than half the effort. 5-Qivddlgry-jviuyv does ALL the effort. Patient does none of the effort to complete the activity. Or, the assistance of 2 or more helpers is required for the patient to complete the activity. If activity was not attempted, code reason: 7-Patient Refused. 9-Not Applicable-not attempted and the patient did not perform the activity before the current illness, exacerbation or injury. 10-Not Attempted due to Environmental Limitations-(lack of equipment, weather restraints, etc.). 88-Not Attempted due to Medical Conditions or Safety Concerns. Roll Left to Right (QC): 5 Sit to Lying (QC): 6 Sit to Stand (QC): 6 Chair/Yih-pv-Iawza Xfer(QC): 6 Car Transfer (QC): 3 (Mod (A) as patient attempted to step into car prior to sitting - had to stop patient, have him correct balance and sit prior to swinging legs in. ) Gait Training Does the Patient Walk?: Yes Walk 10 feet (QC): 6 Walk 50 ft with 2 Turns(QC): 5 Walk 150 ft (QC): 4 (SBA 250' x 2 without rest with FWW with improved stepping strategy and zachery. Was pursed-lip breathing during gait as instructed by another therapist ) Walking 10ft/uneven surface-QC: 3 (min (A) with FWW) Gait Assistive Device: FWW Wheelchair Training Does the Pt Use a Wheelchair?: No Wheel 50 ft with 2 turns (QC): 9 Wheel 150 ft (QC): 9 Stair Training 1 Step (curb) (QC): 3 (mod (A) of 1 for stability and secure stepping due to leg weakness) 4 Steps (QC): 3 (min-mod (A) of 1 /c (B) rails /c v.c. to slow down) 12 Steps (QC): 3 (min-mod (A) of 1 /c (B) rails /c v.c. to slow down) Balance Picking up an Object (QC): 3 (Min (A) using lower cross bar of walker for stability) ADL-Treatment Eating (QC): 6 Oral Hygiene (QC): 6 Shower/Bathe Self (QC): 5 Upper Body Dressing (QC): 6 Lower Body Dressing (QC): 6 On/Off Footwear (QC): 6 Toileting Hygiene (QC): 6 Toilet Transfer (QC): 6 Assessment/Plan Assessment and Plan Assess & Plan/Chief Complaint Assessment: CVA s/p CABG s/p acute renal, liver, and respiratory failure s/p cardiogenic shock s/p tracheostomy and PEG tube T2DM systolic CHF HTN HLD Anemia Elevated liver enzymes Chronic kidney disease Dysuria Plan: PT OT Home meds Monitor closely 06/01/2023: Supportive care Monitor closely 06/02/2023: Monitor closely Sugar management 06/03/2023: Monitor closely Fall risk 06/04/2023: Check UA (1) CVA (cerebral vascular accident) SANDOR GARCES DO Jun 04, 2023 10:26
[2023-06-04 10:35] LABS: BILIRUBIN,URINE 1+ (NEGATIVE); CLARITY,URINE CLOUDY; COLOR,URINE YELLOW; GLUCOSE, URINE (UA) TRACE (NEGATIVE); KETONES,URINE NEGATIVE (NEGATIVE); NITRITE,URINE NEGATIVE (NEGATIVE); PH,URINE 5.5 (5-9); PROTEIN,URINE 1+ (NEGATIVE)
[2023-06-04 10:36] LABS: BACTERIA,URINE TRACE /HPF; LEUKOCYTE ESTERASE ,URINE NEGATIVE (NEGATIVE); SQUAMOUS EPITHELIAL CELL,UR 0-2 /HPF; WBC,URINE 0-2 /HPF
--- NOTE | 2023-06-04 13:51 | Physical Therapy Daily Note ---
PT Daily Note-Current Subjective Pt presents supine in bed. Pt denies pain. Pt agrees to tx. Pain Section J - Health Conditions 1. Rarely or not at all 2. Occasionally 3. Frequently 4. Almost constantly 8. Unable to answer Pain Effect on Sleep: 0 Pain Interference with Therapy: 0 Pain Interference w/Day-to-Day: 0 Transfers SCALE: Activities may be completed with or without assistive devices. 7-Wepzdevtrq-qevlsaq completes the activity by him/herself with no assistance from a helper. 5-Set-up or Clean-up Assistance-helper sets up or cleans up; patient completes activity. [place] assists only prior to or following the activity. 4-Supervision or Touching Assistance-helper provides verbal cues and/or touching/steadying and/or contact guard assistance as patient completes activity. Assistance may be provided throughout the activity or intermittently. 3-Partial/Moderate Assistance-helper does LESS THAN HALF the effort. [place] lifts, holds or supports trunk or limbs, but provides less than half the effort. 2-Substantial/Maximal Assistance-helper does MORE THAN HALF the effort. [place] lifts or holds trunk or limbs and provides more than half the effort. 2-Jrdqoorts-odqons does ALL the effort. Patient does none of the effort to co mplete the activity. Or, the assistance of 2 or more helpers is required for the patient to complete the activity. If activity was not attempted, code reason: 7-Patient Refused. 9-Not Applicable-not attempted and the patient did not perform the activity before the current illness, exacerbation or injury. 10-Not Attempted due to Environmental Limitations-(lack of equipment, weather restraints, etc.). 88-Not Attempted due to Medical Conditions or Safety Concerns. Roll Left & Right (QC): 6 Sit to Lying (QC): 6 Lying to Sitting/Side of Bed(Q: 6 Sit to Stand (QC): 6 Chair/Vwc-fp-Oewwo Xfer(QC): 6 Toilet Transfer (QC): 6 Weight Bearing Full Weight Bearing Full Weight Bearing Gait Training Does the Patient Walk?: Yes Walk 10 feet (QC): 6 Walk 50 ft with 2 Turns(QC): 6 Walk 150 ft (QC): 4 (Vc's to slow down and for posturing) Gait Assistive Device: FWW Pt amb 60' from room<>PT gym /c FWW, SBA for safety. Pt amb 300' from PT gym<>room /c FWW, SBA for vc's to slow zachery and for correct posturing. Wheelchair Training Does the Pt Use a Wheelchair?: No Stair Training 1 Step (curb) (QC): 3 Pt performed step curb forward and L<>R, in (II) with [place] for safety and stabilization. Pt required multiple rest breaks secondary to fatigue. Exercises THER EX: Standing in (II) B LE x 3 (full length of parallel bars): side- stepping/Hip abd, side-stepping /c mini squat, side-stepping /c heel/toe raises. NuStep Minutes: 5 NuStep Workload: 6 Neuromuscular Pt executed good dynamic standing balance x 10 min, on AirEx at white board arranging alphabet in order. Pt assisted /c L UE support on bar. Pt maintained b alance and stability /c no LOB on AirEx, /c LUE support. Pt required multiple breaks secondary to fatigue. Treatments Pt utilized restroom conducting toilet xfer /c FWW, (I). Pt amb 60' from room<>PT gym. Pt bicycled on NuStep x 5 min /c workload of 6. Pt conducted standing ther ex, and neuromuscular reeducation. Pt amb 300' from PT gym<>room /c FWW, SBA for vc's to slow down and for correct posturing. Pt vitals taken /a tx: 97 O2, 116 HR. Pt vitals taken during tx: 94 O2, 119 HR. Pt tx was ended with pt in bed, call light on table near him and all needs met. Assessment Current Status: Good Progress Pt requires multiple rest breaks secondary to fatigue. Pt vitals stayed WNL during tx. PT Assembler Rubber Footwear Goals Assembler Rubber Footwear Goals PT Assembler Rubber Footwear Goals Time Frame: Jun 14, 2023 Roll Left & Right (QC): 6 Sit to Lying (QC): 6 Lying-Sitting on Side/Bed(QC): 6 Sit to Stand (QC): 6 Chair/Sey-fw-Wfmvv Xfer(QC): 6 (/c FWW or cane) Toilet Transfer (QC): 6 (/c FWW ) Car Transfer (QC): 6 (/c FWW and safe technique consistently) Does the Patient Walk: Yes Walk 10 feet (QC): 6 (/c FWW or cane) Walk 50ft with 2 Turns (QC): 6 (/c FWW or cane) Walk 150 ft (QC): 6 (/c FWW or cane) Walking 10ft on Uneven Surface: 6 (/c FWW or cane) 1 Step (curb) (QC): 6 (/c FWW or cane and rail) 4 Steps (QC): 6 (/c (B) rails /c safe technique and zachery) 12 Steps (QC): 6 (/c (B) rails /c safe technique and zachery) Picking up an Object (QC): 6 Does the Pt use WC or Scooter?: No Wheel 50 feet with 2 turns (QC: 9 Wheel 150 feet: 9 PT Plan Problem List Problem List: Activity Tolerance, Functional Strength Treatment/Plan Treatment Plan: Continue Plan of Care Treatment Plan: Bed Mobility, Education, Functional Activity Grace, Functional Strength, Group Therapy, Gait, Safety, Therapeutic Exercise, Transfers Treatment Duration: Jun 14, 2023 Frequency: At least 5 of 7 days/Wk (IRF) Estimated Hrs Per Day: 1.5 hours per day Patient and/or Family Agrees t: Yes Safety Risks/Education Patient Education: Safety Issues Teaching Recipient: Patient Teaching Methods: Discussion Response to Teaching: Verbalize Understanding Discharge Recommendations Plan Continue with tx per pt POC. Time Time In: 1000 Time Out: 1100 DATE: Jun 04, 2023 Total Billed Treatment Time: 60 Total Billed Treatment 1, FA(15m), EX3 (45m) SONDRA MAN SUPERINTENDENT Jun 04, 2023 13:51
--- NOTE | 2023-06-04 15:17 | Speech Therapy Daily Note ---
Speech Daily Progress Note Subjective Date Seen by Provider: Jun 04, 2023 (1310) Time Seen by Provider: 13:10 The pt was alert throughout session, appropriate interaction and good participa tion in tasks. Objective The pt completed problem solving re: daily schedule and elapsed time with 50% accuracy, cues were needed for demonstration of steps for solution for most targeted problems. Working memory was targeted for 3- and 4-digit number spans. The pt was able to recall and manipulate 3-digit spans with good accuracy. When data units were increased to 4 units, accuracy of recall decreased for forward and reverse sequence. Using strategies of repetition and visual placement, the pt was able to complete forward, reverse and random recall of digit placement with 80% accuracy. He completed simple calculations using digits with 90% accuracy while retaining set to digit sequence. Assessment Assessment Current Status: Good Progress The pt demonstrated improved attention and focus as tasks progressed. Treatment Plan Continue Plan of Care Speech Short Term Goals Short Term Goals Short Term Goals Reassess cognitive function 06/03/23. Time Frame-ST days Speech Mcc Goals Mcc Goals The pt will demonstrate improved memory for up to 5 units of information with 90% accuracy. The pt will complete functional mathematical problem solving with 90% accuracy. Speech-Plan Treatment Plan Speech Therapy Treatment Plan: Continue Plan of Care Treatment Duration: May 31, 2023 Frequency: At least 5 of 7 days/Wk (IRF) Estimated Hrs Per Day: .5 hour per day Rehab Potential: Good Time Speech Therapy Time In: 13:10 Speech Therapy Time Out: 14:10 DATE: Jun 04, 2023 Total Billed Time: 60 Billed Treatment Time 1 SLTS (60 min) CHRISTINE SHORT Jun 04, 2023 15:17
[2023-06-04 19:36] VITALS: BP 120/81
[2023-06-04] MEDS ORDERED: inSUlin DETERMIR 1 UNIT/0.01 ML (CHARGE PER UNIT) SQ ONE (21:15)
[2023-06-05] MEDS: HYDROcodone/ACETAMINOPHEN 5 MG/325 MG TABLET PO PRN ×3 (06:18→21:09)
[2023-06-05] MEDS: THERAPEUTIC MULTIVITAMIN W/MINERALS TABLET PO SCH (06:18)
[2023-06-05] MEDS: inSUlin ASPART 1 UNIT/0.01 ML (PER UNIT) SC SCH ×4 (06:19→21:10)
[2023-06-05 08:00] VITALS: BP 121/86
--- NOTE | 2023-06-05 08:16 | Occupational Ther Daily Note ---
OT Current Status-Daily Note Subjective Pt agreeable to OT Tx. Mental Status/Objective Patient Orientation: Normal For Age ADL-Treatment Therapy Code Descriptions/Definitions Functional [place] Measure: 0=Not Assessed/NA 4=Minimal Assistance 1=Total Assistance 5=Supervision or Setup 2=Maximal Assistance 6=Modified [place] 3=Moderate Assistance 7=Complete IndependenceSCALE: Activities may be completed with or without assistive devices. 3-Ltgtlangrj-jighyat completes the activity by him/herself with no assistance from a helper. 5-Set-up or Clean-up Assistance-helper sets up or cleans up; patient completes activity. [place] assists only prior to or following the activity. 4-Supervision or Touching Assistance-helper provides verbal cues and/or touching/steadying and/or contact guard assistance as patient completes activity . Assistance may be provided throughout the activity or intermittently. 3-Partial/Moderate Assistance-helper does LESS THAN HALF the effort. [place] lifts, holds or supports trunk or limbs, but provides less than half the effort. 2-Substantial/Maximal Assistance-helper does MORE THAN HALF the effort. [place] lifts or holds trunk or limbs and provides more than half the effort. 2-Mmlafaais-qxonkk does ALL the effort. Patient does none of the effort to complete the activity. Or, the assistance of 2 or more helpers is required for the patient to complete the activity. If activity was not attempted, code reason: 7-Patient Refused. 9-Not Applicable-not attempted and the patient did not perform the activity before the current illness, exacerbation or injury. 10-Not Attempted due to Environmental Limitations-(lack of equipment, weather restraints, etc.). 88-Not Attempted due to Medical Conditions or Safety Concerns. Eating (QC): 6 Oral Hygiene (QC): 6 Shower/Bathe Self (QC): 5 Upper Body Dressing (QC): 6 Lower Body Dressing (QC): 6 On/Off Footwear: 6 Toileting Hygiene (QC): 6 Toilet Transfer (QC): 6 Other Treatment Pt in bed, transferred supine to sit EOB, independently. Pt gathered clothes using FWW, transferred into bathroom, doffed clothes, completed shower, dressing, and grooming (seated at sink). Pt independent with ADLs on this date, only requiring set up in shower in order to cover IV access/lines. Pt performed functional mobility around [facility] common area/2nd floor, independently, while performing pursed lip breathing as needed without cues. He then returned to his room. Post tx, pt EOB, call light in reach and all needs met. Education OT Patient Education: Correct positioning, Energy conservation, Modified ADL techniques, Progress toward Goal/Update tx plan, Purpose of tx/functional activities, Rehab process Teaching Recipient: Patient Teaching Methods: Discussion Response to Teaching: Verbalize Understanding OT Coagulating Drying Supervisor Goals Coagulating Drying Supervisor Goals Time Frame: Jun 21, 2023 Acute change in mental status: 0 Inattention: 0 Disorganized thinkin Altered level of consciousness: 0 Eating (QC): 6 Oral Hygiene (QC): 6 Toileting Hygiene (QC): 6 Shower/Bathe Self (QC): 6 Upper Body Dressing (QC): 6 Lower Body Dressing (QC): 6 On/Off Footwear (QC): 6 Additional Goals: 1-Demonstrate ADL Tasks, 2-Verbalize Understanding, 3- ImproveStrength/Grace 1=Demonstrate adherence to instructed precautions during ADL tasks. 2=Patient will verbalize/demonstrate understanding of assistive devices/modifications for ADL. 3=Patient will improve strength/tolerance for activity to enable patient to perform ADL's. OT Education/Plan Problem List/Assessment Assessment: Decreased Activ Tolerance, Decreased UE Strength Discharge Recommendations Plan/Recommendations: Continue POC Treatment Plan/Plan of Care Patient would benefit from OT for education, treatment and training to promote independence in ADL's, mobility, safety and/or upper extremity function for ADL's. Plan of Care: ADL Retraining, Functional Mobility, Group Exercise/Act as Ind, UE Funct Exercise/Act Treatment Duration: Jun 21, 2023 Frequency: At least 5 of 7 days/Wk (IRF) Estimated Hrs Per Day: Other (75 mins per day) Agreement: Yes Rehab Potential: Good Time Start Time: 07:30 Stop Time: 08:30 DATE: Jun 05, 2023 Total Time Billed (hr/min): 60 Billed Treatment Time 1, ADL 3 (45'), FA (15') PÉREZ REED OT Jun 05, 2023 08:16
[2023-06-05] MEDS: VITAMIN D3 25 MCG (1,000 UNITS) TABLET PO SCH (08:17)
[2023-06-05] MEDS: ASPIRIN 81 MG CHEWABLE TABLET PO SCH (08:17)
[2023-06-05] MEDS: LACTOBACILLUS ACIDOPHILUS (PROBIOTIC) CAPSULE PO SCH ×2 (08:17→21:10)
[2023-06-05] MEDS: PANTOPRAZOLE 40 MG TABLET PO SCH (08:18)
[2023-06-05] MEDS: MIDODRINE 10 MG TABLET PO SCH ×2 (08:18→17:48)
[2023-06-05] MEDS: TICAGRELOR 90 MG TABLET (BRILINTA) PO SCH ×2 (08:18→21:10)
[2023-06-05] MEDS: inSUlin DETERMIR 1 UNIT/0.01 ML (CHARGE PER UNIT) SQ SCH ×2 (08:19→21:10)
[2023-06-05] MEDS: SENNA W/DOCUSATE TABLET PO SCH ×2 (08:37→21:10)
[2023-06-05] MEDS: GABAPENTIN 100 MG CAPSULE PO PRN ×3 (08:37→21:09)
[2023-06-05] MEDS: DOCUSATE SODIUM 100 MG CAPSULE PO SCH ×2 (08:37→21:10)
[2023-06-05] MEDS: ACETAMINOPHEN 325 MG TABLET PO PRN (08:38)
--- NOTE | 2023-06-05 11:38 | PM&R Progress Note ---
Subjective HPI/CC On Admission Date Seen by Provider: Jun 05, 2023 Time Seen by Provider: 11:45 Subjective/Events-last exam 06/05/2023: Much improved status No falls No pain UA normal 06/04/2023: Doing better Dysuria reported so will order UA No falls No pain 06/03/2023: Patient doing well Blood sugars improved Supportive care we will continue 06/02/2023: Doing better Less pain Muscle pain was reported Hydrocodone initiated 06/01/2023: Patient doing well Labs reviewed Creatinine 1.37 Patient feels good Denies any pain Still impulsive Review of Systems General: Fatigue, Malaise Objective Exam Vital Signs Vital Signs Date Time Temp Pulse Resp B/P (MAP) Pulse Ox O2 Delivery O2 Flow Rate FiO2 06/05/23 19:54 36.5 110 20 120/76 (91) 98 Room Air Capillary Refill : General Appearance: No Apparent Distress, WD/WN, Anxious, Chronically ill HEENT: PERRL/EOMI, Normal ENT Inspection, Pharynx Normal Neck: Full Range of Motion, Normal Inspection, Non Tender, Supple, Carotid Bruit Respiratory: Chest Non Tender, Lungs Clear, Normal Breath Sounds, No Accessory Muscle Use, No Respiratory Distress Cardiovascular: Regular Rate, Rhythm, No Edema, No Gallop, No JVD, No Murmur, Normal Peripheral Pulses Gastrointestinal: Normal Bowel Sounds, No Organomegaly, No Pulsatile Mass, Non Tender, Soft Back: Normal Inspection, No CVA Tenderness, No Vertebral Tenderness Extremity: Normal Capillary Refill, Normal Inspection, Normal Range of Motion, Non Tender, No Calf Tenderness, No Pedal Edema Neurologic/Psychiatric: Alert, Oriented x3, Normal Mood/Affect, kitchen utility associate II-XII Norm as Tested, Abnormal Gait, Motor Weakness (subtle all extremities, impulsive) Skin: Normal Color, Warm/Dry Lymphatic: No Adenopathy Results/Procedures Lab Patient resulted labs reviewed. FIM Transfers Therapy Code Descriptions/Definitions Functional [place] Measure: 0=Not Assessed/NA 4=Minimal Assistance 1=Total Assistance 5=Supervision or Setup 2=Maximal Assistance 6=Modified [place] 3=Moderate Assistance 7=Complete IndependenceSCALE: Activities may be completed with or without assistive devices. 6-Wvkoevomiw-xcqsnyp completes the activity by him/herself with no assistance from a helper. 5-Set-up or Clean-up Assistance-helper sets up or cleans up; patient completes activity. [place] assists only prior to or following the activity. 4-Supervision or Touching Assistance-helper provides verbal cues and/or touching/steadying and/or contact guard assistance as patient completes activity. Assistance may be provided throughout the activity or intermittently. 3-Partial/Moderate Assistance-helper does LESS THAN HALF the effort. [place] lifts, holds or supports trunk or limbs, but provides less than half the effort. 2-Substantial/Maximal Assistance-helper does MORE THAN HALF the effort. [place] lifts or holds trunk or limbs and provides more than half the effort. 2-Letbldbyq-uxrkph does ALL the effort. Patient does none of the effort to complete the activity. Or, the assistance of 2 or more helpers is required for the patient to complete the activity. If activity was not attempted, code reason: 7-Patient Refused. 9-Not Applicable-not attempted and the patient did not perform the activity before the current illness, exacerbation or injury. 10-Not Attempted due to Environmental Limitations-(lack of equipment, weather restraints, etc.). 88-Not Attempted due to Medical Conditions or Safety Concerns. Roll Left to Right (QC): 6 Sit to Lying (QC): 6 Sit to Stand (QC): 6 Chair/Yde-ei-Rtfzn Xfer(QC): 6 Car Transfer (QC): 3 (Mod (A) as patient attempted to step into car prior to sitting - had to stop patient, have him correct balance and sit prior to swinging legs in. ) Gait Training Does the Patient Walk?: Yes Walk 10 feet (QC): 6 Walk 50 ft with 2 Turns(QC): 6 Walk 150 ft (QC): 4 Walking 10ft/uneven surface-QC: 3 (min (A) with FWW) Gait Assistive Device: FWW Wheelchair Training Does the Pt Use a Wheelchair?: No Wheel 50 ft with 2 turns (QC): 9 Wheel 150 ft (QC): 9 Stair Training 1 Step (curb) (QC): 3 4 Steps (QC): 3 (min-mod (A) of 1 /c (B) rails /c v.c. to slow down) 12 Steps (QC): 3 (min-mod (A) of 1 /c (B) rails /c v.c. to slow down) Balance Picking up an Object (QC): 3 (Min (A) using lower cross bar of walker for stability) ADL-Treatment Eating (QC): 6 Oral Hygiene (QC): 6 Shower/Bathe Self (QC): 5 Upper Body Dressing (QC): 6 Lower Body Dressing (QC): 6 On/Off Footwear (QC): 6 Toileting Hygiene (QC): 6 Toilet Transfer (QC): 6 Assessment/Plan Assessment and Plan Assess & Plan/Chief Complaint Assessment: CVA s/p CABG s/p acute renal, liver, and respiratory failure s/p cardiogenic shock s/p tracheostomy and PEG tube T2DM systolic CHF HTN HLD Anemia Elevated liver enzymes Chronic kidney disease Dysuria Urinary retention? Plan: PT OT Home meds Monitor closely 06/01/2023: Supportive care Monitor closely 06/02/2023: Monitor closely Sugar management 06/03/2023: Monitor closely Fall risk 06/04/2023: Check UA 06/05/2023: Increase fluid intake Bladder scan to see how much he is retaining Start Flomax (1) CVA (cerebral vascular accident) SANDOR GARCES DO Jun 05, 2023 11:38
--- NOTE | 2023-06-05 14:30 | Speech Therapy Daily Note ---
Speech Daily Progress Note Subjective Date Seen by Provider: Jun 05, 2023 Time Seen by Provider: 13:00 The pt was alert and interactive, motivated to participate in therapy. Objective The pt completed temporal problems of elapsed time for daytime activities, initially with max assist needed. As task progressed, the pt was able to achieve 80% accuracy independently. Working memory was targeted via card task of tracking numeric values of face-down cards, while simultaneously adding values together. 4 trials were completed, recall of total values was at 100% accuracy immediately and after 30 minute time interval. Functional daily higher-level problem solving was at mod assist, however the pt was fatigued during this task. Assessment Assessment Current Status: Good Progress Improving attention, problem solving, and recall. Treatment Plan Continue Plan of Care Speech Short Term Goals Short Term Goals Short Term Goals Reassess cognitive function 06/03/23. Time Frame-ST days Speech Peer Health Promoter Goals Nursing Home Goals The pt will demonstrate improved memory for up to 5 units of information with 90% accuracy. The pt will complete functional mathematical problem solving with 90% accuracy. Speech-Plan Treatment Plan Speech Therapy Treatment Plan: Continue Plan of Care Treatment Duration: May 31, 2023 Frequency: At least 5 of 7 days/Wk (IRF) Estimated Hrs Per Day: .5 hour per day Rehab Potential: Good Time Speech Therapy Time In: 13:00 Speech Therapy Time Out: 14:00 DATE: Jun 05, 2023 Total Billed Time: 60 Billed Treatment Time 1 SLTS (60 min) CHRISTINE SHORT Jun 05, 2023 14:30
--- NOTE | 2023-06-05 14:35 | Physical Therapy Daily Note ---
PT Daily Note-Current Subjective Pt laying Supine in bed upon arrival. Pt agrees to PT. Pt agrees to transferring rooms to transition pt to Independent Living Room to prepare for home like environment. Pain Location: No Pain Reported Section J - Health Conditions 1. Rarely or not at all 2. Occasionally 3. Frequently 4. Almost constantly 8. Unable to answer Pain Effect on Sleep: 0 Pain Interference with Therapy: 0 Pain Interference w/Day-to-Day: 0 Mental Status Patient Orientation: Person, Place, Time, Situation Transfers SCALE: Activities may be completed with or without assistive devices. 7-Phgycwhuuq-fszerre completes the activity by him/herself with no assistance from a helper. 5-Set-up or Clean-up Assistance-helper sets up or cleans up; patient completes activity. [place] assists only prior to or following the activity. 4-Supervision or Touching Assistance-helper provides verbal cues and/or touching/steadying and/or contact guard assistance as patient completes activity. Assistance may be provided throughout the activity or intermittently. 3-Partial/Moderate Assistance-helper does LESS THAN HALF the effort. [place] lifts, holds or supports trunk or limbs, but provides less than half the effort. 2-Substantial/Maximal Assistance-helper does MORE THAN HALF the effort. [place] lifts or holds trunk or limbs and provides more than half the effort. 9-Jtuyqhtez-zuxhcy does ALL the effort. Patient does none of the effort to complete the activity. Or, the assistance of 2 or more helpers is required for the patient to complete the activity. If activity was not attempted, code reason: 7-Patient Refused. 9-Not Applicable-not attempted and the patient did not perform the activity before the current illness, exacerbation or injury. 10-Not Attempted due to Environmental Limitations-(lack of equipment, weather restraints, etc.). 88-Not Attempted due to Medical Conditions or Safety Concerns. Sit to Lying (QC): 6 Lying to Sitting/Side of Bed(Q: 6 Sit to Stand (QC): 5 Toilet Transfer (QC): 5 Weight Bearing Full Weight Bearing Full Weight Bearing Gait Training Does the Patient Walk?: Yes Distance: 500' Walk 10 feet (QC): 5 Walk 50 ft with 2 Turns(QC): 5 Walk 150 ft (QC): 5 Gait Assistive Device: FWW Wheelchair Training Does the Pt Use a Wheelchair?: No Exercises NuStep Minutes: 5 NuStep Workload: 6 Treatments TF to standing and amb to BR. After toileting, pt amb in hallway. Pt uses NuStep then short RB. Pt stands on AirEx mat while coming standing memory activity at dry erase board. Pt amb to new transitional Independent Living Room. LYE PEEL OPERATOR assists pt transfer pt's stuff to new room. Pt resting Supine in bed at end of tx w/all needs met, call light in hand. Assessment Current Status: Good Progress Pt has improved with independence of transfers and mobility. PT Skilled Nursing Goals [facility] Tender Goals PT Skilled Nursing Goals Time Frame: Jun 14, 2023 Roll Left & Right (QC): 6 Sit to Lying (QC): 6 Lying-Sitting on Side/Bed(QC): 6 Sit to Stand (QC): 6 Chair/Zrd-fu-Bloia Xfer(QC): 6 (/c FWW or cane) Toilet Transfer (QC): 6 (/c FWW ) Car Transfer (QC): 6 (/c FWW and safe technique consistently) Does the Patient Walk: Yes Walk 10 feet (QC): 6 (/c FWW or cane) Walk 50ft with 2 Turns (QC): 6 (/c FWW or cane) Walk 150 ft (QC): 6 (/c FWW or cane) Walking 10ft on Uneven Surface: 6 (/c FWW or cane) 1 Step (curb) (QC): 6 (/c FWW or cane and rail) 4 Steps (QC): 6 (/c (B) rails /c safe technique and zachery) 12 Steps (QC): 6 (/c (B) rails /c safe technique and zachery) Picking up an Object (QC): 6 Does the Pt use WC or Scooter?: No Wheel 50 feet with 2 turns (QC: 9 Wheel 150 feet: 9 PT Plan Treatment/Plan Treatment Plan: Continue Plan of Care Treatment Plan: Bed Mobility, Education, Functional Activity Grace, Functional Strength, Group Therapy, Gait, Safety, Therapeutic Exercise, Transfers Treatment Duration: Jun 14, 2023 Frequency: At least 5 of 7 days/Wk (IRF) Estimated Hrs Per Day: 1.5 hours per day Patient and/or Family Agrees t: Yes Time Time In: 1030 Time Out: 1130 DATE: Jun 05, 2023 Total Billed Treatment Time: 60 Total Billed Treatment 1, GT x2 (30m), FA (15m) & EX (15m) JERICHO ROJAS LYE PEEL OPERATOR Jun 05, 2023 14:35
[2023-06-05] MEDS: TAMSULOSIN 0.4 MG (FLOMAX) CAP PO SCH (17:47)
[2023-06-05 19:54] VITALS: BP 120/76
[2023-06-06] MEDS: inSUlin ASPART 1 UNIT/0.01 ML (PER UNIT) SC SCH ×4 (05:52→21:11)
[2023-06-06] MEDS: THERAPEUTIC MULTIVITAMIN W/MINERALS TABLET PO SCH (06:36)
[2023-06-06 07:23] VITALS: BP 96/58
[2023-06-06 07:25] VITALS: BP 105/68
[2023-06-06] MEDS: SENNA W/DOCUSATE TABLET PO SCH ×2 (08:04→21:10)
[2023-06-06] MEDS: ASPIRIN 81 MG CHEWABLE TABLET PO SCH (08:05)
[2023-06-06] MEDS: VITAMIN D3 25 MCG (1,000 UNITS) TABLET PO SCH (08:05)
[2023-06-06] MEDS: PANTOPRAZOLE 40 MG TABLET PO SCH (08:06)
[2023-06-06] MEDS: MIDODRINE 10 MG TABLET PO SCH ×2 (08:06→17:22)
[2023-06-06] MEDS: LACTOBACILLUS ACIDOPHILUS (PROBIOTIC) CAPSULE PO SCH ×2 (08:06→21:10)
[2023-06-06] MEDS: DOCUSATE SODIUM 100 MG CAPSULE PO SCH ×2 (08:06→21:10)
[2023-06-06] MEDS: inSUlin DETERMIR 1 UNIT/0.01 ML (CHARGE PER UNIT) SQ SCH ×2 (08:07→21:11)
[2023-06-06] MEDS: TICAGRELOR 90 MG TABLET (BRILINTA) PO SCH ×2 (08:10→21:10)
[2023-06-06] MEDS: HYDROcodone/ACETAMINOPHEN 5 MG/325 MG TABLET PO PRN ×2 (09:35→21:10)
--- NOTE | 2023-06-06 11:39 | Physical Therapy Daily Note ---
PT Daily Note-Current Subjective Pt R sidelying asleep upon arrival. Pt agrees to PT for QC scoring for anticipated d/c on Saturday (06/08). Pain Location: No Pain Reported Section J - Health Conditions 1. Rarely or not at all 2. Occasionally 3. Frequently 4. Almost constantly 8. Unable to answer Pain Effect on Sleep: 0 Pain Interference with Therapy: 0 Pain Interference w/Day-to-Day: 0 Mental Status Patient Orientation: Person, Place, Time, Situation Transfers SCALE: Activities may be completed with or without assistive devices. 7-Pnhoouafci-tejzuqa completes the activity by him/herself with no assistance from a helper. 5-Set-up or Clean-up Assistance-helper sets up or cleans up; patient completes activity. [place] assists only prior to or following the activity. 4-Supervision or Touching Assistance-helper provides verbal cues and/or touching/steadying and/or contact guard assistance as patient completes activity. Assistance may be provided throughout the activity or intermittently. 3-Partial/Moderate Assistance-helper does LESS THAN HALF the effort. [place] lifts, holds or supports trunk or limbs, but provides less than half the effort. 2-Substantial/Maximal Assistance-helper does MORE THAN HALF the effort. [place] lifts or holds trunk or limbs and provides more than half the effort. 9-Dczbygpub-inqfsb does ALL the effort. Patient does none of the effort to complete the activity. Or, the assistance of 2 or more helpers is required for the patient to complete the activity. If activity was not attempted, code reason: 7-Patient Refused. 9-Not Applicable-not attempted and the patient did not perform the activity before the current illness, exacerbation or injury. 10-Not Attempted due to Environmental Limitations-(lack of equipment, weather restraints, etc.). 88-Not Attempted due to Medical Conditions or Safety Concerns. Roll Left & Right (QC): 6 Sit to Lying (QC): 6 Lying to Sitting/Side of Bed(Q: 6 Sit to Stand (QC): 6 Chair/Dic-pv-[place] Xfer(QC): 6 Toilet Transfer (QC): 6 Car Transfer (QC): 6 Weight Bearing Full Weight Bearing Full Weight Bearing Gait Training Does the Patient Walk?: Yes Distance: 500' x2 Walk 10 feet (QC): 6 Walk 50 ft with 2 Turns(QC): 6 Walk 150 ft (QC): 6 Walking 10ft/uneven surface-QC: 6 Gait Assistive Device: FWW Wheelchair Training Does the Pt Use a Wheelchair?: No Wheel 50 ft with 2 turns (QC): 9 Wheel 150 ft (QC): 9 Stair Training Stair Training: Handrails/: 2 handrails #of Steps: 12 1 Step (curb) (QC): 6 4 Steps (QC): 6 12 Steps (QC): 6 Stairs: Pattern: Reciprocal Balance Picking up an Object (QC): 6 Treatments Pt completes QC scoring items listed above before returning to room to rest in bed again before lunch. All needs met, call light in hand. Assessment Current Status: Good Progress Pt reports feeling a little SOA during tx but improved from where previous tx have been. Pt was fatigued from morning OT & PT tx. PT Usp Goals Hypnotherapist Goals PT Usp Goals Time Frame: Jun 14, 2023 Roll Left & Right (QC): 6 Sit to Lying (QC): 6 Lying-Sitting on Side/Bed(QC): 6 Sit to Stand (QC): 6 Chair/Nzv-hc-Uoeoh Xfer(QC): 6 (/c FWW or cane) Toilet Transfer (QC): 6 (/c FWW ) Car Transfer (QC): 6 (/c FWW and safe technique consistently) Does the Patient Walk: Yes Walk 10 feet (QC): 6 (/c FWW or cane) Walk 50ft with 2 Turns (QC): 6 (/c FWW or cane) Walk 150 ft (QC): 6 (/c FWW or cane) Walking 10ft on Uneven Surface: 6 (/c FWW or cane) 1 Step (curb) (QC): 6 (/c FWW or cane and rail) 4 Steps (QC): 6 (/c (B) rails /c safe technique and zachery) 12 Steps (QC): 6 (/c (B) rails /c safe technique and zachery) Picking up an Object (QC): 6 Does the Pt use WC or Scooter?: No Wheel 50 feet with 2 turns (QC: 9 Wheel 150 feet: 9 PT Plan Problem List Problem List: Activity Tolerance Treatment/Plan Treatment Plan: Continue Plan of Care Treatment Plan: Bed Mobility, Education, Functional Activity Grace, Functional Strength, Group Therapy, Gait, Safety, Therapeutic Exercise, Transfers Treatment Duration: Jun 14, 2023 Frequency: At least 5 of 7 days/Wk (IRF) Estimated Hrs Per Day: 1.5 hours per day Patient and/or Family Agrees t: Yes Time Time In: 914 Time Out: 1030 DATE: Jun 06, 2023 Total Billed Treatment Time: 75 Total Billed Treatment 1, GT x2 (30m) & FA x3 (45m) JERICHO ROJAS INSIGHTS MANAGER Jun 06, 2023 11:38
--- NOTE | 2023-06-06 12:18 | PM&R Progress Note ---
Subjective HPI/CC On Admission Date Seen by Provider: Jun 06, 2023 Time Seen by Provider: 10:30 Subjective/Events-last exam 06/06/2023: Patient fatigue today Taking a nap Blood sugars reviewed Reviewed meds 06/05/2023: Much improved status No falls No pain UA normal 06/04/2023: Doing better Dysuria reported so will order UA No falls No pain 06/03/2023: Patient doing well Blood sugars improved Supportive care we will continue 06/02/2023: Doing better Less pain Muscle pain was reported Hydrocodone initiated 06/01/2023: Patient doing well Labs reviewed Creatinine 1.37 Patient feels good Denies any pain Still impulsive Review of Systems General: Fatigue, Malaise Objective Exam Vital Signs Vital Signs Date Time Temp Pulse Resp B/P (MAP) Pulse Ox O2 Delivery O2 Flow Rate FiO2 06/06/23 20:45 Room Air 06/06/23 20:00 36.6 109 20 116/78 (91) 99 Capillary Refill : General Appearance: No Apparent Distress, WD/WN, Anxious, Chronically ill HEENT: PERRL/EOMI, Normal ENT Inspection, Pharynx Normal Neck: Full Range of Motion, Normal Inspection, Non Tender, Supple, Carotid Bruit Respiratory: Chest Non Tender, Lungs Clear, Normal Breath Sounds, No Accessory Muscle Use, No Respiratory Distress Cardiovascular: Regular Rate, Rhythm, No Edema, No Gallop, No JVD, No Murmur, Normal Peripheral Pulses Gastrointestinal: Normal Bowel Sounds, No Organomegaly, No Pulsatile Mass, Non Tender, Soft Back: Normal Inspection, No CVA Tenderness, No Vertebral Tenderness Extremity: Normal Capillary Refill, Normal Inspection, Normal Range of Motion, Non Tender, No Calf Tenderness, No Pedal Edema Neurologic/Psychiatric: Alert, Oriented x3, Normal Mood/Affect, senior test analyst II-XII Norm as Tested, Abnormal Gait, Motor Weakness (subtle all extremities, impulsive) Skin: Normal Color, Warm/Dry Lymphatic: No Adenopathy Results/Procedures Lab Patient resulted labs reviewed. FIM Transfers Therapy Code Descriptions/Definitions Functional [place] Measure: 0=Not Assessed/NA 4=Minimal Assistance 1=Total Assistance 5=Supervision or Setup 2=Maximal Assistance 6=Modified [place] 3=Moderate Assistance 7=Complete IndependenceSCALE: Activities may be completed with or without assistive devices. 5-Viygblzvhe-hrqjmfa completes the activity by him/herself with no assistance from a helper. 5-Set-up or Clean-up Assistance-helper sets up or cleans up; patient completes activity. [place] assists only prior to or following the activity. 4-Supervision or Touching Assistance-helper provides verbal cues and/or touching/steadying and/or contact guard assistance as patient completes activity. Assistance may be provided throughout the activity or intermittently. 3-Partial/Moderate Assistance-helper does LESS THAN HALF the effort. [place] lifts, holds or supports trunk or limbs, but provides less than half the effort. 2-Substantial/Maximal Assistance-helper does MORE THAN HALF the effort. [place] lifts or holds trunk or limbs and provides more than half the effort. 2-Sfzrxsqpc-vkibpi does ALL the effort. Patient does none of the effort to complete the activity. Or, the assistance of 2 or more helpers is required for the patient to complete the activity. If activity was not attempted, code reason: 7-Patient Refused. 9-Not Applicable-not attempted and the patient did not perform the activity before the current illness, exacerbation or injury. 10-Not Attempted due to Environmental Limitations-(lack of equipment, weather restraints, etc.). 88-Not Attempted due to Medical Conditions or Safety Concerns. Roll Left to Right (QC): 6 Sit to Lying (QC): 6 Sit to Stand (QC): 6 Chair/Hyo-ib-Qosdd Xfer(QC): 6 Car Transfer (QC): 6 Gait Training Does the Patient Walk?: Yes Distance: 500' x2 Walk 10 feet (QC): 6 Walk 50 ft with 2 Turns(QC): 6 Walk 150 ft (QC): 6 Walking 10ft/uneven surface-QC: 6 Gait Assistive Device: FWW Wheelchair Training Does the Pt Use a Wheelchair?: No Wheel 50 ft with 2 turns (QC): 9 Wheel 150 ft (QC): 9 Stair Training Stair Training: Handrails/: 2 handrails #of Steps: 12 1 Step (curb) (QC): 6 4 Steps (QC): 6 12 Steps (QC): 6 Stairs: Pattern: Reciprocal Balance Picking up an Object (QC): 6 ADL-Treatment Eating (QC): 6 Oral Hygiene (QC): 6 Shower/Bathe Self (QC): 5 Upper Body Dressing (QC): 6 Lower Body Dressing (QC): 6 On/Off Footwear (QC): 6 Toileting Hygiene (QC): 6 Toilet Transfer (QC): 6 Assessment/Plan Assessment and Plan Assess & Plan/Chief Complaint Assessment: CVA s/p CABG s/p acute renal, liver, and respiratory failure s/p cardiogenic shock s/p tracheostomy and PEG tube T2DM systolic CHF HTN HLD Anemia Elevated liver enzymes Chronic kidney disease Dysuria Urinary retention? Plan: PT OT Home meds Monitor closely 06/01/2023: Supportive care Monitor closely 06/02/2023: Monitor closely Sugar management 06/03/2023: Monitor closely Fall risk 06/04/2023: Check UA 06/05/2023: Increase fluid intake Bladder scan to see how much he is retaining Start Flomax 06/06/2023: Supportive care Monitor urination (1) CVA (cerebral vascular accident) SANDOR GARCES DO Jun 06, 2023 12:18
--- NOTE | 2023-06-06 13:16 | Occupational Ther Daily Note ---
OT Current Status-Daily Note Subjective Pt was received sitting EOB with RN at side. Pt very pleasant and willing to participate in therapy. Reports that he is feeling very well and is looking forward to getting up and moving around. Pain Numeric Pain Scale: 0-No Pain Location: No Pain Reported Mental Status/Objective Patient Orientation: Person, Place, Time, Situation Attachments: IV ADL-Treatment Therapy Code Descriptions/Definitions Functional [place] Measure: 0=Not Assessed/NA 4=Minimal Assistance 1=Total Assistance 5=Supervision or Setup 2=Maximal Assistance 6=Modified [place] 3=Moderate Assistance 7=Complete IndependenceSCALE: Activities may be completed with or without assistive devices. 9-Tscqtsxdmc-gqojbqx completes the activity by him/herself with no assistance from a helper. 5-Set-up or Clean-up Assistance-helper sets up or cleans up; patient completes activity. [place] assists only prior to or following the activity. 4-Supervision or Touching Assistance-helper provides verbal cues and/or touching/steadying and/or contact guard assistance as patient completes activity. Assistance may be provided throughout the activity or intermittently. 3-Partial/Moderate Assistance-helper does LESS THAN HALF the effort. [place] lifts, holds or supports trunk or limbs, but provides less than half the effort. 2-Substantial/Maximal Assistance-helper does MORE THAN HALF the effort. [place] lifts or holds trunk or limbs and provides more than half the effort. 9-Cdmsdydkp-duxndw does ALL the effort. Patient does none of the effort to complete the activity. Or, the assistance of 2 or more helpers is required for the patient to complete the activity. If activity was not attempted, code reason: 7-Patient Refused. 9-Not Applicable-not attempted and the patient did not perform the activity before the current illness, exacerbation or injury. 10-Not Attempted due to Environmental Limitations-(lack of equipment, weather restraints, etc.). 88-Not Attempted due to Medical Conditions or Safety Concerns. Eating (QC): 6 Oral Hygiene (QC): 6 Shower/Bathe Self (QC): 5 (Independent with bathing, though still requiring setup ) Upper Body Dressing (QC): 6 (to don/doff shirt) Lower Body Dressing (QC): 6 (To don/doff brief and pants) On/Off Footwear: 6 (to don/doff socks) Toileting Hygiene (QC): 6 Toilet Transfer (QC): 6 Other Treatment Pt completed peg board activity x100 pegs with #1 weights on each arm to increase UE strength. Pt completed functional mobility with FWW and modified independence for balance, requiring no cues for safety. Educated pt on home safety/setup in order to promote energy conservation techniques as needed to increase overall safety at home. Completed UE strengthening HEP with red theraband prioritizing shoulder flexion, abduction and adduction; elbow flexion/extension and cotton factor strength. Education OT Patient Education: Correct positioning, Energy conservation, Home exercise program, Modified ADL techniques, Progress toward Goal/Update tx plan, Purpose of tx/functional activities, Rehab process, Safety issues, Use of adapted equipment Teaching Recipient: Patient Teaching Methods: Demonstration, Discussion Response to Teaching: Verbalize Understanding, Return Demonstration OT Roving Hand Goals Roving Hand Goals Time Frame: Jun 21, 2023 Acute change in mental status: 0 Inattention: 0 Disorganized thinkin Altered level of consciousness: 0 Eating (QC): 6 Oral Hygiene (QC): 6 Toileting Hygiene (QC): 6 Shower/Bathe Self (QC): 6 Upper Body Dressing (QC): 6 Lower Body Dressing (QC): 6 On/Off Footwear (QC): 6 Additional Goals: 1-Demonstrate ADL Tasks, 2-Verbalize Understanding, 3- ImproveStrength/Grace 1=Demonstrate adherence to instructed precautions during ADL tasks. 2=Patient will verbalize/demonstrate understanding of assistive devices/modifications for ADL. 3=Patient will improve strength/tolerance for activity to enable patient to perform ADL's. OT Education/Plan Problem List/Assessment Assessment: Decreased Activ Tolerance, Decreased Safety Aware, Decreased UE Strength, Impaired Funct Balance, Impaired I ADL's, Impaired Self-Care Skills Discharge Recommendations Plan/Recommendations: Continue POC Treatment Plan/Plan of Care Treatment,Training & Education: Yes Patient would benefit from OT for education, treatment and training to promote independence in ADL's, mobility, safety and/or upper extremity function for ADL's. Plan of Care: ADL Retraining, Functional Mobility, Group Exercise/Act as Ind, UE Funct Exercise/Act Treatment Duration: Jun 21, 2023 Frequency: At least 5 of 7 days/Wk (IRF) Estimated Hrs Per Day: Other (75 mins per day) Agreement: Yes Rehab Potential: Good Time Start Time: 08:00 Stop Time: 09:15 DATE: Jun 06, 2023 Total Time Billed (hr/min): 75 Billed Treatment Time 1, FA 2, ADL 2, EX 1 Maryellen Fernando OTR/L Jun 06, 2023 13:16
--- NOTE | 2023-06-06 15:16 | Speech Therapy Daily Note ---
Speech Daily Progress Note Subjective Date Seen by Provider: Jun 06, 2023 Time Seen by Provider: 13:10 The pt participated well in session. Fatigue noted after 5 minutes of individual tasks, with breaks needed. Objective Multi-step problem solving with functional mathematical reasoning was targeted. The pt was able to complete mathematical calculations with good accuracy until fatigued, after which assist was needed. The pt demonstrated difficulty recognizing and organizing steps needed to complete targeted problems, with mod/max assist needed. Alternating attention was targeted via tracking of accumulating values between 2 data sets. The pt was able to track up to 4 anderson ges in values on each data set before losing set to task. STM was targeted for recall of 3 data units over 5- and 10-minute intervals, with good accuracy achieved. Assessment Assessment Current Status: Good Progress Treatment Plan Continue Plan of Care Speech Short Term Goals Short Term Goals Short Term Goals Reassess cognitive function 06/03/23. Time Frame-ST days Speech Biological Technical Officer Goals Biological Technical Officer Goals The pt will demonstrate improved memory for up to 5 units of information with 90% accuracy. The pt will complete functional mathematical problem solving with 90% accuracy. Speech-Plan Patient/Family Goals Patient/Family Goals: The pt plans to return to work after discharge. Treatment Plan Speech Therapy Treatment Plan: Continue Plan of Care Treatment Duration: May 31, 2023 Frequency: At least 5 of 7 days/Wk (IRF) Estimated Hrs Per Day: .5 hour per day Rehab Potential: Good Safety Risks/Education Teaching Recipient: Patient Teaching Methods: Discussion Response to Teaching: Verbalize Understanding Education Topics Provided: Discussed need for further S.T. services after discharge. The pt plans to resume work in small increments, will seek outpatient S.T. services if needed. Discharge Recommendations Home & Family Time Speech Therapy Time In: 13:10 Speech Therapy Time Out: 14:10 DATE: Jun 06, 2023 Total Billed Time: 60 Billed Treatment Time 1 SLTS (60 min) CHRISTINE SHORT Jun 06, 2023 15:16
[2023-06-06] MEDS: TAMSULOSIN 0.4 MG (FLOMAX) CAP PO SCH (17:22)
[2023-06-06 20:00] VITALS: BP 116/78
[2023-06-06] MEDS: GABAPENTIN 100 MG CAPSULE PO PRN (21:10)
[2023-06-07] MEDS: inSUlin ASPART 1 UNIT/0.01 ML (PER UNIT) SC SCH ×4 (05:45→21:05)
[2023-06-07] MEDS: THERAPEUTIC MULTIVITAMIN W/MINERALS TABLET PO SCH (06:20)
--- NOTE | 2023-06-07 07:03 | PM&R Progress Note ---
Subjective HPI/CC On Admission Date Seen by Provider: Jun 07, 2023 Time Seen by Provider: 10:00 Subjective/Events-last exam 06/07/2023: Patient doing well No other concerns Discharge planned 06/06/2023: Patient fatigue today Taking a nap Blood sugars reviewed Reviewed meds 06/05/2023: Much improved status No falls No pain UA normal 06/04/2023: Doing better Dysuria reported so will order UA No falls No pain 06/03/2023: Patient doing well Blood sugars improved Supportive care we will continue 06/02/2023: Doing better Less pain Muscle pain was reported Hydrocodone initiated 06/01/2023: Patient doing well Labs reviewed Creatinine 1.37 Patient feels good Denies any pain Still impulsive Review of Systems General: Fatigue, Malaise Objective Exam Vital Signs Vital Signs Date Time Temp Pulse Resp B/P (MAP) Pulse Ox O2 Delivery O2 Flow Rate FiO2 06/07/23 20:09 36.6 111 18 110/65 (80) 98 Room Air Capillary Refill : General Appearance: No Apparent Distress, WD/WN, Anxious, Chronically ill HEENT: PERRL/EOMI, Normal ENT Inspection, Pharynx Normal Neck: Full Range of Motion, Normal Inspection, Non Tender, Supple, Carotid Bruit Respiratory: Chest Non Tender, Lungs Clear, Normal Breath Sounds, No Accessory Muscle Use, No Respiratory Distress Cardiovascular: Regular Rate, Rhythm, No Edema, No Gallop, No JVD, No Murmur, Normal Peripheral Pulses Gastrointestinal: Normal Bowel Sounds, No Organomegaly, No Pulsatile Mass, Non Tender, Soft Back: Normal Inspection, No CVA Tenderness, No Vertebral Tenderness Extremity: Normal Capillary Refill, Normal Inspection, Normal Range of Motion, Non Tender, No Calf Tenderness, No Pedal Edema Neurologic/Psychiatric: Alert, Oriented x3, Normal Mood/Affect, crib tender II-XII Norm as Tested, Abnormal Gait, Motor Weakness (subtle all extremities, impulsive) Skin: Normal Color, Warm/Dry Lymphatic: No Adenopathy Results/Procedures Lab Laboratory Tests 06/07/23 07:32 Patient resulted labs reviewed. FIM Transfers Therapy Code Descriptions/Definitions Functional [place] Measure: 0=Not Assessed/NA 4=Minimal Assistance 1=Total Assistance 5=Supervision or Setup 2=Maximal Assistance 6=Modified [place] 3=Moderate Assistance 7=Complete IndependenceSCALE: Activities may be completed with or without assistive devices. 0-Tekogldnql-psdwqwr completes the activity by him/herself with no assistance from a helper. 5-Set-up or Clean-up Assistance-helper sets up or cleans up; patient completes activity. [place] assists only prior to or following the activity. 4-Supervision or Touching Assistance-helper provides verbal cues and/or touching/steadying and/or contact guard assistance as patient completes activity. Assistance may be provided throughout the activity or intermittently. 3-Partial/Moderate Assistance-helper does LESS THAN HALF the effort. [place] lifts, holds or supports trunk or limbs, but provides less than half the effort. 2-Substantial/Maximal Assistance-helper does MORE THAN HALF the effort. [place] lifts or holds trunk or limbs and provides more than half the effort. 7-Vummqbrhx-wubswv does ALL the effort. Patient does none of the effort to complete the activity. Or, the assistance of 2 or more helpers is required for the patient to complete the activity. If activity was not attempted, code reason: 7-Patient Refused. 9-Not Applicable-not attempted and the patient did not perform the activity before the current illness, exacerbation or injury. 10-Not Attempted due to Environmental Limitations-(lack of equipment, weather restraints, etc.). 88-Not Attempted due to Medical Conditions or Safety Concerns. Roll Left to Right (QC): 6 Sit to Lying (QC): 6 Sit to Stand (QC): 6 Chair/Jup-cr-Hhcad Xfer(QC): 6 Car Transfer (QC): 6 Gait Training Does the Patient Walk?: Yes Distance: 500' x2 Walk 10 feet (QC): 6 Walk 50 ft with 2 Turns(QC): 6 Walk 150 ft (QC): 6 Walking 10ft/uneven surface-QC: 6 Gait Assistive Device: FWW Wheelchair Training Does the Pt Use a Wheelchair?: No Wheel 50 ft with 2 turns (QC): 9 Wheel 150 ft (QC): 9 Stair Training Stair Training: Handrails/: 2 handrails #of Steps: 12 1 Step (curb) (QC): 6 4 Steps (QC): 6 12 Steps (QC): 6 Stairs: Pattern: Reciprocal Balance Picking up an Object (QC): 6 ADL-Treatment Eating (QC): 6 Oral Hygiene (QC): 6 Shower/Bathe Self (QC): 5 (Independent with bathing, though still requiring setup ) Upper Body Dressing (QC): 6 (to don/doff shirt) Lower Body Dressing (QC): 6 (To don/doff brief and pants) On/Off Footwear (QC): 6 (to don/doff socks) Toileting Hygiene (QC): 6 Toilet Transfer (QC): 6 Assessment/Plan Assessment and Plan Assess & Plan/Chief Complaint Assessment: CVA s/p CABG s/p acute renal, liver, and respiratory failure s/p cardiogenic shock s/p tracheostomy and PEG tube T2DM systolic CHF HTN HLD Anemia Elevated liver enzymes Chronic kidney disease Dysuria Urinary retention? Plan: PT OT Home meds Monitor closely 06/01/2023: Supportive care Monitor closely 06/02/2023: Monitor closely Sugar management 06/03/2023: Monitor closely Fall risk 06/04/2023: Check UA 06/05/2023: Increase fluid intake Bladder scan to see how much he is retaining Start Flomax 06/06/2023: Supportive care Monitor urination 06/07/2023: Discharge is planned (1) CVA (cerebral vascular accident) SANDOR GARCES DO Jun 07, 2023 07:03
[2023-06-07] MEDS: MIDODRINE 10 MG TABLET PO SCH ×2 (07:18→17:02)
[2023-06-07] MEDS: LACTOBACILLUS ACIDOPHILUS (PROBIOTIC) CAPSULE PO SCH ×2 (07:18→21:04)
[2023-06-07] MEDS: VITAMIN D3 25 MCG (1,000 UNITS) TABLET PO SCH (07:18)
[2023-06-07] MEDS: TICAGRELOR 90 MG TABLET (BRILINTA) PO SCH ×2 (07:19→21:04)
[2023-06-07] MEDS: SENNA W/DOCUSATE TABLET PO SCH ×2 (07:19→21:05)
[2023-06-07] MEDS: PANTOPRAZOLE 40 MG TABLET PO SCH (07:19)
[2023-06-07] MEDS: DOCUSATE SODIUM 100 MG CAPSULE PO SCH ×2 (07:19→21:05)
[2023-06-07] MEDS: ASPIRIN 81 MG CHEWABLE TABLET PO SCH (07:19)
[2023-06-07] MEDS: inSUlin DETERMIR 1 UNIT/0.01 ML (CHARGE PER UNIT) SQ SCH ×2 (07:20→21:05)
[2023-06-07] MEDS: HYDROcodone/ACETAMINOPHEN 5 MG/325 MG TABLET PO PRN ×2 (07:23→21:04)
[2023-06-07 07:47] LABS: BASOPHILS # (AUTO) 0.1 10^3/uL (0.0-0.1); BASOPHILS % (AUTO) 1 % (0-10); EOSINOPHILS # (AUTO) 0.1 10^3/uL (0.0-0.3); EOSINOPHILS % (AUTO) 1 % (0-10); HEMATOCRIT 29 % (40-54); HEMOGLOBIN 9.3 g/dL (13.3-17.7); LYMPHOCYTES # (AUTO) 2.7 10^3/uL (1.0-4.0); LYMPHOCYTES % (AUTO) 32 % (12-44); MEAN CORPUSCULAR HEMOGLOBIN 32 pg (25-34); MEAN CORPUSCULAR HGB CONC 32 g/dL (32-36); MEAN CORPUSCULAR VOLUME 99 fL (80-99); MEAN PLATELET VOLUME 9.9 fL (9.0-12.2); MONOCYTES # (AUTO) 0.7 10^3/uL (0.0-1.0); MONOCYTES % (AUTO) 9 % (0-12); NEUTROPHILS # (AUTO) 4.7 10^3/uL (1.8-7.8); NEUTROPHILS % (AUTO) 56 % (42-75); PLATELET COUNT 294 10^3/uL (130-400); WHITE BLOOD COUNT 8.4 10^3/uL (4.3-11.0)
--- NOTE | 2023-06-07 07:53 | Occupational Ther Daily Note ---
OT Current Status-Daily Note Subjective Pt agreeable to OT Tx with focus on ADLs. Family training scheduled later this AM at 1000. Mental Status/Objective Patient Orientation: Normal For Age ADL-Treatment Therapy Code Descriptions/Definitions Functional [place] Measure: 0=Not Assessed/NA 4=Minimal Assistance 1=Total Assistance 5=Supervision or Setup 2=Maximal Assistance 6=Modified [place] 3=Moderate Assistance 7=Complete IndependenceSCALE: Activities may be completed with or without assistive devices. 6-Iedcgkryun-nrqrxbn completes the activity by him/herself with no assistance from a helper. 5-Set-up or Clean-up Assistance-helper sets up or cleans up; patient completes activity. [place] assists only prior to or following the activity. 4-Supervision or Touching Assistance-helper provides verbal cues and/or touching/steadying and/or contact guard assistance as patient completes activity. Assistance may be provided throughout the activity or intermittently. 3-Partial/Moderate Assistance-helper does LESS THAN HALF the effort. [place] lifts, holds or supports trunk or limbs, but provides less than half the effort. 2-Substantial/Maximal Assistance-helper does MORE THAN HALF the effort. [place] l ifts or holds trunk or limbs and provides more than half the effort. 3-Ngonrpgui-smniqh does ALL the effort. Patient does none of the effort to complete the activity. Or, the assistance of 2 or more helpers is required for the patient to complete the activity. If activity was not attempted, code reason: 7-Patient Refused. 9-Not Applicable-not attempted and the patient did not perform the activity before the current illness, exacerbation or injury. 10-Not Attempted due to Environmental Limitations-(lack of equipment, weather restraints, etc.). 88-Not Attempted due to Medical Conditions or Safety Concerns. Eating (QC): 6 Oral Hygiene (QC): 6 Shower/Bathe Self (QC): 5 (set up to cover midline/dialysis lines) Upper Body Dressing (QC): 6 Lower Body Dressing (QC): 6 On/Off Footwear: 6 Toileting Hygiene (QC): 6 Toilet Transfer (QC): 6 Other Treatment Pt EOB, used FWW to gather clothes and transfer into bathroom. Pt doffed clothes, OT covered lines prior to pt's shower, then pt completed showering, dressing, and grooming tasks independently. Pt returned to EOB using FWW, IND. Post tx, pt EOB, call light in reach and all needs met. Education OT Patient Education: Correct positioning, Energy conservation, Modified ADL techniques, Progress toward Goal/Update tx plan, Purpose of tx/functional activities, Rehab process Teaching Recipient: Patient Teaching Methods: Discussion Response to Teaching: Verbalize Understanding BIMS CAM BIMS Expression of Ideas and Wants: Without Difficulty Understanding Verbal Content: Understands Brief Interview/Mental Status: Yes IRF PAUL BIMS: IRF PAUL BIMS Response (Comments) Value Repitition of Three Words Three 3 Recalls Socks Yes, No Cue Required 2 Recalls Blue Yes, No Cue Required 2 Recalls Bed Yes, No Cue Required 2 Year Correct 3 Month Accurate Within 5 Days 2 Day Correct 1 Total 15 Patient Normally Able to Recal: Current Session, Location of own room, Staff Names and faces, That he/she in a hsp Should Staff Asses. Mental St.: No Memory/Recall Ability: Current Season, Location of Own Room, Staff Names and Faces, That He/She in Hospit[facility] CAM Mental Status Change/Baseline: 0 Inattention: 0 Disorganized thinkin Altered level of consciousness: 0 OT Razor Grinder Goals Razor Grinder Goals Time Frame: Jun 21, 2023 Acute change in mental status: 0 Inattention: 0 Disorganized thinkin Altered level of consciousness: 0 Eating (QC): 6 (met) Oral Hygiene (QC): 6 (met) Toileting Hygiene (QC): 6 (met) Shower/Bathe Self (QC): 6 (not met, set up) Upper Body Dressing (QC): 6 (met) Lower Body Dressing (QC): 6 (met) On/Off Footwear (QC): 6 (met) Additional Goals: 1-Demonstrate ADL Tasks, 2-Verbalize Understanding, 3- ImproveStrength/Grace 1=Demonstrate adherence to instructed precautions during ADL tasks. 2=Patient will verbalize/demonstrate understanding of assistive devices/modifications for ADL. 3=Patient will improve strength/tolerance for activity to enable patient to perform ADL's. OT Education/Plan Problem List/Assessment Assessment: Decreased Activ Tolerance, Impaired I ADL's Discharge Recommendations Plan/Recommendations: Continue POC Treatment Plan/Plan of Care Patient would benefit from OT for education, treatment and training to promote independence in ADL's, mobility, safety and/or upper extremity function for ADL's. Plan of Care: ADL Retraining, Functional Mobility, Group Exercise/Act as Ind, UE Funct Exercise/Act Treatment Duration: Jun 21, 2023 Frequency: At least 5 of 7 days/Wk (IRF) Estimated Hrs Per Day: Other (75 mins per day) Agreement: Yes Rehab Potential: Good Time Start Time: 07:15 Stop Time: 08:00 DATE: Jun 07, 2023 Total Time Billed (hr/min): 45 Billed Treatment Time 1, ADL 3 PÉREZ REED OT Jun 07, 2023 07:53
[2023-06-07 08:00] VITALS: BP 116/68
[2023-06-07 08:09] LABS: ALBUMIN 2.9 GM/DL (3.2-4.5); BILIRUBIN,TOTAL 2.5 MG/DL (0.1-1.0); CREATININE SERUM 0.99 MG/DL (0.60-1.30); POTASSIUM 4.2 MMOL/L (3.6-5.0); TOTAL PROTEIN 7.1 GM/DL (6.4-8.2)
--- NOTE | 2023-06-07 10:17 | Physical Therapy Daily Note ---
PT Daily Note-Current Subjective Pt presents supine in bed. Pt denies pain. Pt agrees to PT tx. CoTx /c OT 1000- 1030 (30m). Pain Section J - Health Conditions 1. Rarely or not at all 2. Occasionally 3. Frequently 4. Almost constantly 8. Unable to answer Pain Effect on Sleep: 0 Pain Interference with Therapy: 0 Pain Interference w/Day-to-Day: 0 Mental Status Patient Orientation: Person, Place, Time Attachments: IV Transfers SCALE: Activities may be completed with or without assistive devices. 4-Deicnurtze-xjlljgp completes the activity by him/herself with no assistance from a helper. 5-Set-up or Clean-up Assistance-helper sets up or cleans up; patient completes activity. [place] assists only prior to or following the activity. 4-Supervision or Touching Assistance-helper provides verbal cues and/or touching/steadying and/or contact guard assistance as patient completes activity. Assistance may be provided throughout the activity or intermittently. 3-Partial/Moderate Assistance-helper does LESS THAN HALF the effort. [place] lifts, holds or supports trunk or limbs, but provides less than half the effort. 2-Substantial/Maximal Assistance-helper does MORE THAN HALF the effort. [place] lifts or holds trunk or limbs and provides more than half the effort. 9-Gzwbfjryv-vdcjrz does ALL the effort. Patient does none of the effort to complete the activity. Or, the assistance of 2 or more helpers is required for the patient to complete the activity. If activity was not attempted, code reason: 7-Patient Refused. 9-Not Applicable-not attempted and the patient did not perform the activity before the current illness, exacerbation or injury. 10-Not Attempted due to Environmental Limitations-(lack of equipment, weather restraints, etc.). 88-Not Attempted due to Medical Conditions or Safety Concerns. Roll Left & Right (QC): 6 Sit to Lying (QC): 6 Lying to Sitting/Side of Bed(Q: 6 Sit to Stand (QC): 6 Chair/Idf-um-Rklyk Xfer(QC): 6 Toilet Transfer (QC): 6 Car Transfer (QC): 6 Weight Bearing Full Weight Bearing Full Weight Bearing Gait Training Does the Patient Walk?: Yes Walk 10 feet (QC): 6 Walk 50 ft with 2 Turns(QC): 6 Walk 150 ft (QC): 6 Walking 10ft/uneven surface-QC: 6 Gait Assistive Device: FWW Pt amb 360' x 2 around ARU /c FWW, (I). Wheelchair Training Does the Pt Use a Wheelchair?: No Stair Training Stair Training: Handrails/: 2 handrails 1 Step (curb) (QC): 6 4 Steps (QC): 4 12 Steps (QC): 4 Stairs: Pattern: Reciprocal Pt able to complete 12 stairs ascending/descending, /c SBA for safety. Pt needed rest break immediately after, secondary to fatigue. Balance Picking up an Object (QC): 6 Special Test Comments Pt picked up object with (R) UE support on FWW, (I). Exercises NuStep Minutes: 5 NuStep Workload: 6 Treatments MIDDLE SCHOOL TUTOR conducted Quality Code checks with pt and pt's family for Family Training, including the following: Amb up to 360' x 2, bed mobility, xfers in<>out bed/car/toilet, stairs up to 12, and picking up an object. Pt performed tub transfer stepping in<>out, SBA for safety. MIDDLE SCHOOL TUTOR/OT recommend tub transfer bench. Pt bicycled on NuStep with workload 6 x 5min. PT/OT coTx from 4635-1241 (30m). Post tx with pt supine in bed, call light within reach and all needs met. Assessment Current Status: Excellent Progress Pt still requires multiple rest breaks throughout tx, secondary to fatigue. Pt is making good progress with strength and balance. PT Usp Goals Aviation Safety Inspector Goals PT Usp Goals Time Frame: Jun 14, 2023 Roll Left & Right (QC): 6 Sit to Lying (QC): 6 Lying-Sitting on Side/Bed(QC): 6 Sit to Stand (QC): 6 Chair/Pag-kb-Erzqf Xfer(QC): 6 (/c FWW or cane) Toilet Transfer (QC): 6 (/c FWW ) Car Transfer (QC): 6 (/c FWW and safe technique consistently) Does the Patient Walk: Yes Walk 10 feet (QC): 6 (/c FWW or cane) Walk 50ft with 2 Turns (QC): 6 (/c FWW or cane) Walk 150 ft (QC): 6 (/c FWW or cane) Walking 10ft on Uneven Surface: 6 (/c FWW or cane) 1 Step (curb) (QC): 6 (/c FWW or cane and rail) 4 Steps (QC): 6 (/c (B) rails /c safe technique and zachery) 12 Steps (QC): 6 (/c (B) rails /c safe technique and zachery) Picking up an Object (QC): 6 Does the Pt use WC or Scooter?: No Wheel 50 feet with 2 turns (QC: 9 Wheel 150 feet: 9 PT Plan Problem List Problem List: Activity Tolerance Treatment/Plan Treatment Plan: Continue Plan of Care Treatment Plan: Bed Mobility, Education, Functional Activity Grace, Functional Strength, Group Therapy, Gait, Safety, Therapeutic Exercise, Transfers Treatment Duration: Jun 14, 2023 Frequency: At least 5 of 7 days/Wk (IRF) Estimated Hrs Per Day: 1.5 hours per day Patient and/or Family Agrees t: Yes Safety Risks/Education Patient Education: Safety Issues Teaching Recipient: Patient Teaching Methods: Discussion Response to Teaching: Verbalize Understanding Discharge Recommendations Plan Continue with tx per pt POC. Time Time In: 929 Time Out: 1045 DATE: Jun 07, 2023 Total Billed Treatment Time: 75 Total Billed Treatment 1, GT2 (30m), FA3 (45m). CoTx /c OT: 4943-1721 (30m) SONDRA MAN PTA Jun 07, 2023 10:17
--- NOTE | 2023-06-07 10:51 | Occupational Ther Daily Note ---
OT Current Status-Daily Note Subjective Pt at EOB, PT and family present for family education. ADL-Treatment Therapy Code Descriptions/Definitions Functional [place] Measure: 0=Not Assessed/NA 4=Minimal Assistance 1=Total Assistance 5=Supervision or Setup 2=Maximal Assistance 6=Modified [place] 3=Moderate Assistance 7=Complete IndependenceSCALE: Activities may be completed with or without assistive devices. 4-Fsbwphlntw-shdpltt completes the activity by him/herself with no assistance from a helper. 5-Set-up or Clean-up Assistance-helper sets up or cleans up; patient completes activity. [place] assists only prior to or following the activity. 4-Supervision or Touching Assistance-helper provides verbal cues and/or touching/steadying and/or contact guard assistance as patient completes activity. Assistance may be provided throughout the activity or intermittently. 3-Partial/Moderate Assistance-helper does LESS THAN HALF the effort. [place] lifts, holds or supports trunk or limbs, but provides less than half the effort. 2-Substantial/Maximal Assistance-helper does MORE THAN HALF the effort. [place] lifts or holds trunk or limbs and provides more than half the effort. 3-Rurhvmgdv-fcowfg does ALL the effort. Patient does none of the effort to complete the activity. Or, the assistance of 2 or more helpers is required for the patient to complete the activity. If activity was not attempted, code reason: 7-Patient Refused. 9-Not Applicable-not attempted and the patient did not perform the activity before the current illness, exacerbation or injury. 10-Not Attempted due to Environmental Limitations-(lack of equipment, weather restraints, etc.). 88-Not Attempted due to Medical Conditions or Safety Concerns. Other Treatment OT/PT cotreat due to skill of 2 clinicians required which a rehab office coordinator could not perform in order to coordinate UE/LEs, decrease fall risk, focus on higher level balance tasks, and for family education. OT focused on ADLs and UE placement, PT focused on LE placement, gross overall movement, transfers and mobility. Pt's family educated on pt's current performance with mobility and transfers, education provided on benefits of tub transfer bench vs shower chair for energy conservation (with recommendation for tub transfer bench from OT). Pt demo'd ability to complete tub transfer by stepping over the ledge of the tub with SBA, IND using tub transfer bench. OT educated family on current ADL performance. Pt only requires set up with showering in order to cover IV access/dialysis line on L chest. OT shown family how to cover and provided education on importance of keeping it dry during shower, they verbalize understanding. Education provided on energy conservation techniques, they verbalize understanding. Pt and family report no further concerns and questions regarding pt's performance with therapy. Post, tx, pt with PT, all needs met. 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 2=Patient will verbalize/demonstrate understanding of assistive devices/modifications for ADL. 3=Patient will improve strength/tolerance for activity to enable patient to perform ADL's. OT Education/Plan Problem List/Assessment Assessment: Decreased Activ Tolerance, Decreased UE Strength Discharge Recommendations Plan/Recommendations: Continue POC Treatment Plan/Plan of Care Patient would benefit from OT for education, treatment and training to promote independence in ADL's, mobility, safety and/or upper extremity function for ADL's. Plan of Care: ADL Retraining, Functional Mobility, Group Exercise/Act as Ind, UE Funct Exercise/Act Treatment Duration: Jun 21, 2023 Frequency: At least 5 of 7 days/Wk (IRF) Estimated Hrs Per Day: Other (75 mins per day) Agreement: Yes Rehab Potential: Good Time Start Time: 10:00 Stop Time: 10:30 DATE: Jun 07, 2023 Total Time Billed (hr/min): 30 Billed Treatment Time 1, ADL 2 PÉREZ REED OT Jun 07, 2023 10:51
[2023-06-07] MEDS ORDERED: ACET-2267 PO (14:11)
--- NOTE | 2023-06-07 14:37 | Speech Therapy Daily Note ---
Speech Daily Progress Note Subjective Date Seen by Provider: Jun 07, 2023 Time Seen by Provider: 13:10 The pt was awake and alert, with good participation in treatment session. Objective Multi-step high-level problem solving was targeted in session. The pt was able to identify steps needed for solution independently. He solved each problem with written notes and use of a calculator with 80% accuracy. Note organization was fair, the pt required review and cues to track meaning of each of his noted entries. The pt was able to synthesize written information to achieve the solution with min assist needed. STM was targeted via task requiring the pt to track numeric score that changed at intervals, with 100% accuracy achieved. Discussed discharge and plan of return to work. 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 . Assessment Assessment Current Status: Good Progress Treatment Plan Discontinue ST Planned facility discharge tomorrow, 06/08/23. Speech Short Term Goals Short Term Goals Short Term Goals Reassess cognitive function 06/03/23. Time Frame-ST days Speech Hydrometer Tester Goals Hydrometer Tester Goals The pt will demonstrate improved memory for up to 5 units of information with 90% accuracy. MET The pt will complete functional mathematical problem solving with 90% accuracy. EMERGING AT HIGH-LEVEL PROBLEM SOLVING Speech-Plan Treatment Plan Speech Therapy Treatment Plan: Discontinue ST Treatment Duration: May 31, 2023 Frequency: At least 5 of 7 days/Wk (IRF) Estimated Hrs Per Day: .5 hour per day Rehab Potential: Good Safety Risks/Education Teaching Recipient: Patient, Family Teaching Methods: Discussion Response to Teaching: Verbalize Understanding Education Topics Provided: Current status, needs when returning to work, OP speech therapy if needed Discharge Recommendations Home & Family Time Speech Therapy Time In: 13:10 Speech Therapy Time Out: 14:10 DATE: Jun 07, 2023 Total Billed Time: 60 Billed Treatment Time 1 SLTS (60 min) CHRISTINE SHORT Jun 07, 2023 14:37
[2023-06-07] MEDS: TAMSULOSIN 0.4 MG (FLOMAX) CAP PO SCH (17:03)
[2023-06-07 20:09] VITALS: BP 110/65
[2023-06-07] MEDS: GABAPENTIN 100 MG CAPSULE PO PRN (21:04)
[2023-06-07] MEDS ORDERED: TICA90TA PO (21:11)
[2023-06-07] MEDS ORDERED: PANT40TA52 PO (21:11)
[2023-06-07] MEDS ORDERED: MULT-1137 PO (21:11)
[2023-06-07] MEDS ORDERED: ACHD5005 PO (21:11)
[2023-06-07] MEDS ORDERED: GABA-486 PO (21:11)
[2023-06-07] MEDS ORDERED: ALPR.25T PO (21:11)
[2023-06-07] MEDS ORDERED: GLYB1.253 PO (21:11)
[2023-06-07] MEDS ORDERED: TMSL.4C PO (21:11)
[2023-06-07] MEDS ORDERED: ASPI81TA64 PO (21:11)
[2023-06-07] MEDS ORDERED: CHOL-34 PO (21:11)
[2023-06-07] MEDS ORDERED: MIDO10TA PO (21:11)
[2023-06-07 21:30] VITALS: BP 114/74
[2023-06-08] MEDS: ACETAMINOPHEN 325 MG TABLET PO PRN (00:05)
[2023-06-08] MEDS: HYDROcodone/ACETAMINOPHEN 5 MG/325 MG TABLET PO PRN (02:24)
--- NOTE | 2023-06-08 06:01 | Discharge Summary ---
Diagnosis/Chief Complaint Date of Admission May 31, 2023 at 11:18 Date of Discharge Discharge Date: Jun 08, 2023 Discharge Diagnosis Assessment: CVA s/p CABG s/p acute renal, liver, and respiratory failure s/p cardiogenic shock s/p tracheostomy and PEG tube T2DM systolic CHF HTN HLD Anemia Elevated liver enzymes Chronic kidney disease Dysuria Urinary retention? Plan: PT OT Home meds Monitor closely 06/01/2023: Supportive care Monitor closely 06/02/2023: Monitor closely Sugar management 06/03/2023: Monitor closely Fall risk 06/04/2023: Check UA 06/05/2023: Increase fluid intake Bladder scan to see how much he is retaining Start Flomax 06/06/2023: Supportive care Monitor urination 06/07/2023: Discharge is planned (1) CVA (cerebral vascular accident) Discharge Summary Discharge Physical Examination Allergies: Coded Allergies: No Known Drug Allergies (Unverified , 12/09/20) Vitals & I&Os Vital Signs Date Time Temp Pulse Resp B/P (MAP) Pulse Ox O2 Delivery O2 Flow Rate FiO2 06/08/23 10:18 36.1 103 19 112/71 98 Room Air General Appearance: Alert, Oriented X3, Cooperative Respiratory: Clear to Auscultation Cardiovascular: Regular Rate Psych/Mental Status: Mental Status NL Hospital Course Was the Problem List Reviewed?: Yes Uneventful hospital course after he was moved over from [place] for recovery. He had no changes in mental status or vitals. Labs improved. Midline was removed. Dialysis catheter will be removed by nephrology service. He was able to receive aggressive therapy and regain baseline function and was discharged in improved condition with family. Labs (last 24 hrs) Laboratory Tests 05/31/23 16:03: Glucometer 198H 05/31/23 20:33: Glucometer 167H 06/01/23 05:30: White Blood Count 7.0, Red Blood Count 2.83L, Hemoglobin 8.9L, Hematocrit 28L, Mean Corpuscular Volume 98, Mean Corpuscular Hemoglobin 31, Mean Corpuscular Hemoglobin Concent 32, Red Cell Distribution Width 15.5H, Platelet Count 307, Mean Platelet Volume 10.1, Immature Granulocyte % (Auto) 1, Neutrophils (%) (Auto) 55, Lymphocytes (%) (Auto) 30, Monocytes (%) (Auto) 11, Eosinophils (%) (Auto) 2, Basophils (%) (Auto) 1, Neutrophils # (Auto) 3.9, Lymphocytes # (Auto) 2.1, Monocytes # (Auto) 0.8, Eosinophils # (Auto) 0.1, Basophils # (Auto) 0.1, Immature Granulocyte # (Auto) 0.1, Sodium Level 137, Potassium Level 3.5L, Chloride Level 103, Carbon Dioxide Level 20L, Anion Gap 14, Blood Urea Nitrogen 33H, Creatinine 1.67H, Estimat Glomerular Filtration Rate 47, BUN/Creatinine Ratio 20, Glucose Level 258H, Calcium Level 8.4L, Corrected Calcium 9.4, Total Bilirubin 2.9H, Aspartate Amino Transf (AST/SGOT) 52H, Alanine Aminotransferase (ALT/SGPT) 59H, Alkaline Phosphatase 623H, Total Protein 6.7, Albumin 2.8L 06/01/23 11:14: Glucometer 240H 06/01/23 16:01: Glucometer 186H 06/01/23 21:27: Glucometer 225H 06/02/23 05:11: Glucometer 147H 06/02/23 10:52: Glucometer 204H 06/02/23 16:02: Glucometer 258H 06/02/23 20:31: Glucometer 175H 06/03/23 05:35: White Blood Count 9.9, Red Blood Count 2.77L, Hemoglobin 8.8L, Hematocrit 28L, Mean Corpuscular Volume 99, Mean Corpuscular Hemoglobin 32, Mean Corpuscular Hemoglobin Concent 32, Red Cell Distribution Width 15.4H, Platelet Count 293, Mean Platelet Volume 10.2, Immature Granulocyte % (Auto) 1, Neutrophils (%) (Auto) 57, Lymphocytes (%) (Auto) 31, Monocytes (%) (Auto) 9, Eosinophils (%) (Auto) 1, Basophils (%) (Auto) 1, Neutrophils # (Auto) 5.6, Lymphocytes # (Auto) 3.0, Monocytes # (Auto) 0.9, Eosinophils # (Auto) 0.1, Basophils # (Auto) 0.1, Immature Granulocyte # (Auto) 0.1, Sodium Level 137, Potassium Level 4.1, Chloride Level 110H, Carbon Dioxide Level 17L, Anion Gap 10, Blood Urea Nitrogen 31H, Creatinine 1.28, Estimat Glomerular Filtration Rate 65, BUN/Creatinine Ratio 24, Glucose Level 216H, Calcium Level 8.4L, Corrected Calcium 9.4, Total Bilirubin 2.5H, Gamma Glutamyl Transpeptidase 2271H, Aspartate Amino Transf (AST/SGOT) 86H, Alanine Aminotransferase (ALT/SGPT) 90H, Alkaline Phosphatase 759H, Total Protein 6.7, Albumin 2.8L 06/03/23 11:16: Glucometer 182H 06/03/23 16:05: Glucometer 213H 06/03/23 17:46: Glucometer 242H 06/03/23 20:29: Glucometer 242H 06/04/23 06:08: Glucometer 137H 06/04/23 10:18: Urine Color YELLOW, Urine Clarity CLOUDY, Urine pH 5.5, Urine Specific [place] 1.015L, Urine Protein 1+H, Urine Glucose (UA) TRACEH, Urine Ketones NEGATIVE, Urine Nitrite NEGATIVE, Urine Bilirubin 1+H, Urine Urobilinogen 0.2, Urine Le ukocyte Esterase NEGATIVE, Urine RBC (Auto) NEGATIVE, Urine RBC NONE, Urine WBC 0-2, Urine Squamous Epithelial Cells 0-2, Urine Crystals NONE, Urine Bacteria TRACE, Urine Casts NONE, Urine Mucus NEGATIVE, Urine Culture Indicated NO 06/04/23 10:59: Glucometer 158H 06/04/23 16:07: Glucometer 212H 06/04/23 21:07: Glucometer 237H 06/05/23 05:40: Glucometer 152H 06/05/23 11:39: Glucometer 166H 06/05/23 15:55: Glucometer 154H 06/05/23 20:41: Glucometer 220H 06/06/23 05:44: Glucometer 132H 06/06/23 10:59: Glucometer 192H 06/06/23 17:21: Glucometer 123H 06/06/23 20:54: Glucometer 285H 06/07/23 05:43: Glucometer 106 06/07/23 07:32: White Blood Count 8.4, Red Blood Count 2.95L, Hemoglobin 9.3L, Hematocrit 29L, Mean Corpuscular Volume 99, Mean Corpuscular Hemoglobin 32, Mean Corpuscular Hemoglobin Concent 32, Red Cell Distribution Width 15.4H, Platelet Count 294, Mean Platelet Volume 9.9, Immature Granulocyte % (Auto) 2, Neutrophils (%) (Auto) 56, Lymphocytes (%) (Auto) 32, Monocytes (%) (Auto) 9, Eosinophils (%) (Auto) 1, Basophils (%) (Auto) 1, Neutrophils # (Auto) 4.7, Lymphocytes # (Auto) 2.7, Monocytes # (Auto) 0.7, Eosinophils # (Auto) 0.1, Basophils # (Auto) 0.1, Immature Granulocyte # (Auto) 0.1, Sodium Level 139, Potassium Level 4.2, Chloride Level 109H, Carbon Dioxide Level 20L, Anion Gap 10, Blood Urea Nitrogen 24H, Creatinine 0.99, Estimat Glomerular Filtration Rate 88, BUN/Creatinine Ratio 24, Glucose Level 116H, Calcium Level 9.0, Corrected Calcium 9.9, Total Bilirubin 2.5H, Aspartate Amino Transf (AST/SGOT) 78H, Alanine Aminotransferase (ALT/SGPT) 94H, Alkaline Phosphatase 994H, Total Protein 7.1, Albumin 2.9L 06/07/23 10:55: Glucometer 153H 06/07/23 15:28: Glucometer 145H 06/07/23 20:52: Glucometer 221H 06/08/23 06:35: Glucometer 106 Pending Labs Laboratory Tests 05/31/23 16:03: Glucometer 198 05/31/23 20:33: Glucometer 167 06/01/23 05:30: White Blood Count 7.0, Red Blood Count 2.83, Hemoglobin 8.9, Hematocrit 28, Mean Corpuscular Volume 98, Mean Corpuscular Hemoglobin 31, Mean Corpuscular Hemoglobin Concent 32, Red Cell Distribution Width 15.5, Platelet Count 307, Mean Platelet Volume 10.1, Immature Granulocyte % (Auto) 1, Neutrophils (%) (Auto) 55, Lymphocytes (%) (Auto) 30, Monocytes (%) (Auto) 11, Eosinophils (%) (Auto) 2, Basophils (%) (Auto) 1, Neutrophils # (Auto) 3.9, Lymphocytes # (Auto) 2.1, Monocytes # (Auto) 0.8, Eosinophils # (Auto) 0.1, Basophils # (Auto) 0.1, Immature Granulocyte # (Auto) 0.1, Sodium Level 137, Potassium Level 3.5, Chloride Level 103, Carbon Dioxide Level 20, Anion Gap 14, Blood Urea Nitrogen 33, Creatinine 1.67, Estimat Glomerular Filtration Rate 47, BUN/Creatinine Ratio 20, Glucose Level 258, Calcium Level 8.4, Corrected Calcium 9.4, Total Bilirubin 2.9, Aspartate Amino Transf (AST/SGOT) 52, Alanine Aminotransferase (ALT/SGPT) 59, Alkaline Phosphatase 623, Total Protein 6.7, Albumin 2.8 06/01/23 11:14: Glucometer 240 06/01/23 16:01: Glucometer 186 06/01/23 21:27: Glucometer 225 06/02/23 05:11: Glucometer 147 06/02/23 10:52: Glucometer 204 06/02/23 16:02: Glucometer 258 06/02/23 20:31: Glucometer 175 06/03/23 05:35: White Blood Count 9.9, Red Blood Count 2.77, Hemoglobin 8.8, Hematocrit 28, Mean Corpuscular Volume 99, Mean Corpuscular Hemoglobin 32, Mean Corpuscular Hemoglobin Concent 32, Red Cell Distribution Width 15.4, Platelet Count 293, Mean Platelet Volume 10.2, Immature Granulocyte % (Auto) 1, Neutrophils (%) (Auto) 57, Lymphocytes (%) (Auto) 31, Monocytes (%) (Auto) 9, Eosinophils (%) (Auto) 1, Basophils (%) (Auto) 1, Neutrophils # (Auto) 5.6, Lymphocytes # (Auto) 3.0, Monocytes # (Auto) 0.9, Eosinophils # (Auto) 0.1, Basophils # (Auto) 0.1, Immature Granulocyte # (Auto) 0.1, Sodium Level 137, Potassium Level 4.1, Chloride Level 110, Carbon Dioxide Level 17, Anion Gap 10, Blood Urea Nitrogen 31, Creatinine 1.28, Estimat Glomerular Filtration Rate 65, BUN/Creatinine Ratio 24, Glucose Level 216, Calcium Level 8.4, Corrected Calcium 9.4, Total Bilirubin 2.5, Gamma Glutamyl Transpeptidase 2271, Aspartate Amino Transf (AST/SGOT) 86, Alanine Aminotransferase (ALT/SGPT) 90, Alkaline Phosphatase 759, Total Protein 6.7, Albumin 2.8 06/03/23 11:16: Glucometer 182 06/03/23 16:05: Glucometer 213 06/03/23 17:46: Glucometer 242 06/03/23 20:29: Glucometer 242 06/04/23 06:08: Glucometer 137 06/04/23 10:18: Urine Color YELLOW, Urine Clarity CLOUDY, Urine pH 5.5, Urine Specific [place] 1.015, Urine Protein 1+, Urine Glucose (UA) TRACE, Urine Ketones NEGATIVE, Urine Nitrite NEGATIVE, Urine Bilirubin 1+, Urine Urobilinogen 0.2, Urine Leukocyte Esterase NEGATIVE, Urine RBC (Auto) NEGATIVE, Urine RBC NONE, Urine WBC 0-2, Urine Squamous Epithelial Cells 0-2, Urine Crystals NONE, Urine Bacteria TRACE, Urine Casts NONE, Urine Mucus NEGATIVE, Urine Culture Indicated NO 06/04/23 10:59: Glucometer 158 06/04/23 16:07: Glucometer 212 06/04/23 21:07: Glucometer 237 06/05/23 05:40: Glucometer 152 06/05/23 11:39: Glucometer 166 06/05/23 15:55: Glucometer 154 06/05/23 20:41: Glucometer 220 06/06/23 05:44: Glucometer 132 06/06/23 10:59: Glucometer 192 06/06/23 17:21: Glucometer 123 06/06/23 20:54: Glucometer 285 06/07/23 05:43: Glucometer 106 06/07/23 07:32: White Blood Count 8.4, Red Blood Count 2.95, Hemoglobin 9.3, Hematocrit 29, Mean Corpuscular Volume 99, Mean Corpuscular Hemoglobin 32, Mean Corpuscular Hemog lobin Concent 32, Red Cell Distribution Width 15.4, Platelet Count 294, Mean Platelet Volume 9.9, Immature Granulocyte % (Auto) 2, Neutrophils (%) (Auto) 56, Lymphocytes (%) (Auto) 32, Monocytes (%) (Auto) 9, Eosinophils (%) (Auto) 1, Basophils (%) (Auto) 1, Neutrophils # (Auto) 4.7, Lymphocytes # (Auto) 2.7, Monocytes # (Auto) 0.7, Eosinophils # (Auto) 0.1, Basophils # (Auto) 0.1, Immature Granulocyte # (Auto) 0.1, Sodium Level 139, Potassium Level 4.2, Chloride Level 109, Carbon Dioxide Level 20, Anion Gap 10, Blood Urea Nitrogen 24, Creatinine 0.99, Estimat Glomerular Filtration Rate 88, BUN/Creatinine Ratio 24, Glucose Level 116, Calcium Level 9.0, Corrected Calcium 9.9, Total Bilirubin 2.5, Aspartate Amino Transf (AST/SGOT) 78, Alanine Aminotransferase (ALT/SGPT) 94, Alkaline Phosphatase 994, Total Protein 7.1, Albumin 2.9 06/07/23 10:55: Glucometer 153 06/07/23 15:28: Glucometer 145 06/07/23 20:52: Glucometer 221 06/08/23 06:35: Glucometer 106 Discharge Home Medications: Active Scripts Active Glyburide 1.25 Mg Tablet 1.25 Mg PO DAILY Tab-A-Kassidy Multivit with Iron (Multivitamin/Iron/Folic Acid) 18 Mg Iron-400 Mcg Tablet 1 Ea PO DAILY@0700 Vitamin D3 (Cholecalciferol (Vitamin D3)) 25 Mcg (1000 Unit) Tablet 50 Mcg PO DAILY Pantoprazole Sodium 40 Mg Tablet.dr 40 Mg PO DAILY Xanax Tablet (Alprazolam) 0.25 Mg Tab 0.25 Mg PO Q8H PRN Gabapentin 100 Mg Capsule 100 Mg PO TID PRN Hydrocodone-Acetamin 5-325 mg (Hydrocodone/Acetaminophen) 5 Mg-325 Mg Tablet 1 Ea PO Q4H PRN Children's Aspirin (Aspirin) 81 Mg Tab.chew 81 Mg PO DAILY Brilinta (Ticagrelor) 90 Mg Tablet 90 Mg PO BID Flomax (Tamsulosin HCl) 0.4 Mg Cap 0.4 Mg PO DAILY@1800 Midodrine HCl 10 Mg Tablet 5 Mg PO BID WITH MEALS Reported Tylenol Extra Strength (Acetaminophen) 500 Mg Tablet 1,000 Mg PO Q8H PRN Instructions to patient/family Please see electronic discharge instructions given to patient. Diagnosis/Problems Diagnosis/Problems (1) CVA (cerebral vascular accident) SANDOR GARCES DO Jun 08, 2023 06:01
[2023-06-08] MEDS: inSUlin ASPART 1 UNIT/0.01 ML (PER UNIT) SC SCH (06:40)
[2023-06-08] MEDS: THERAPEUTIC MULTIVITAMIN W/MINERALS TABLET PO SCH (06:56)
[2023-06-08 07:30] VITALS: BP 112/71
[2023-06-08] MEDS: ASPIRIN 81 MG CHEWABLE TABLET PO SCH (08:19)
[2023-06-08] MEDS: VITAMIN D3 25 MCG (1,000 UNITS) TABLET PO SCH (08:19)
[2023-06-08] MEDS: TICAGRELOR 90 MG TABLET (BRILINTA) PO SCH (08:19)
[2023-06-08] MEDS: LACTOBACILLUS ACIDOPHILUS (PROBIOTIC) CAPSULE PO SCH (08:19)
[2023-06-08] MEDS: PANTOPRAZOLE 40 MG TABLET PO SCH (08:19)
[2023-06-08] MEDS: DOCUSATE SODIUM 100 MG CAPSULE PO SCH (08:19)
[2023-06-08] MEDS: SENNA W/DOCUSATE TABLET PO SCH (08:19)
[2023-06-08] MEDS: inSUlin DETERMIR 1 UNIT/0.01 ML (CHARGE PER UNIT) SQ SCH (08:20)
[2023-06-08] MEDS: MIDODRINE 10 MG TABLET PO SCH (08:20)
[2023-06-08 10:18] VITALS: BP 112/71
--- NOTE | 2023-06-10 08:37 | Therapy Team Discharge Summary ---
Therapy Discharge Summary Discharge Recommendations Date of Discharge Jun 08, 2023 at 10:10 Physical Therapy Patient was admitted to the [facility] [place] s/p CVA and critical illness myopathy. Per QC coding, patient was (I) with all bed mobility, transfers, gait /c FWW and curb/step ambulation and picking an object up off floor. His KU Balance score improved from 2+ to 3+. His Elderly Mobility Scale score was 18/20 at time of D/C. He will have outpatient therapy to work on endurance and weaning off AD. Roll Left to Right (QC): 6 Sit to Lying (QC): 6 Lying to Sitting/Side of Bed(Q: 6 Sit to Stand (QC): 6 Chair/Ijf-an-Naawu Xfer(QC): 6 Toilet Transfer (QC): 6 Car Transfer (QC): 6 Does the Patient Walk: Yes Walk 10 feet (QC): 6 Walk 50 ft with 2 Turns(QC): 6 Walk 150 ft (QC): 6 Walking 10ft on uneven surface: 6 Distance: 40', 50', 35', 35,' 60'. 50' Gait Assistive Device: FWW Does the Pt Use a Wheelchair: No Wheel 50 ft with 2 turns (QC): 9 Wheel 150 ft (QC): 9 #of Steps: 12 1 Step (curb) (QC): 6 4 Steps (QC): 6 12 Steps (QC): 6 Walking Assistive Device: Walker Balance Sitting Static: Good Balance Sitting Dynamic: Good Balance-Standing Static: Fair Picking up an Object (QC): 6 Occupational Therapy Decreased Activ Tolerance, Decreased UE Strength Eating (QC): 6 Oral Hygiene (QC): 6 Shower/Bathe Self (QC): 5 (set up to cover midline/dialysis lines) Upper Body Dressing (QC): 6 Lower Body Dressing (QC): 6 On/Off Footwear (QC): 6 Toileting Hygiene (QC): 6 PT Half-Way Goals Half-Way Goals PT Half-Way Goals Time Frame: Jun 14, 2023 Roll Left to Right (QC): 6 Sit to Lying (QC): 6 Lying-Sitting on Side/Bed(QC): 6 Sit to Stand (QC): 6 Chair/Zeu-jh-Xslcq Xfer(QC): 6 (/c FWW or cane) Toilet/Commode Transfer (QC): 6 (/c FWW ) Car Transfer (QC): 6 (/c FWW and safe technique consistently) Does the Patient Walk: Yes Walk 10 feet (QC): 6 (/c FWW or cane) Walk 10ft-Uneven Surface(QC): 6 (/c FWW or cane) Walk 50ft with 2 Turns (QC): 6 (/c FWW or cane) Walk 150 ft (QC): 6 (/c FWW or cane) Does the Pt use WC or Scooter?: No Wheel 50 feet with 2 turns (QC: 9 Wheel 150 feet: 9 1 Step (curb) (QC): 6 (/c FWW or cane and rail) 4 Steps (QC): 6 (/c (B) rails /c safe technique and zachery) 12 Steps (QC): 6 (/c (B) rails /c safe technique and zachery) Picking up an Object (QC): 6 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 2=Patient will verbalize/demonstrate understanding of assistive devices/modifications for ADL. 3=Patient will improve strength/tolerance for activity to enable patient to perform ADL's. Speech Half-Way Goals Senior Manager [employer] Goals The pt will demonstrate improved memory for up to 5 units of information with 90% accuracy. MET The pt will complete functional mathematical problem solving with 90% accuracy. EMERGING AT HIGH-LEVEL PROBLEM SOLVING Kayla Perkins PT Jun 10, 2023 08:37
--- NOTE | 2023-06-10 11:04 | Therapy Team Discharge Summary ---
Therapy Discharge Summary Discharge Recommendations Date of Discharge Jun 08, 2023 at 10:10 Physical Therapy Roll Left to Right (QC): 6 Sit to Lying (QC): 6 Lying to Sitting/Side of Bed(Q: 6 Sit to Stand (QC): 6 Chair/Vgk-xe-Cdkmj Xfer(QC): 6 Toilet Transfer (QC): 6 Car Transfer (QC): 6 Does the Patient Walk: Yes Walk 10 feet (QC): 6 Walk 50 ft with 2 Turns(QC): 6 Walk 150 ft (QC): 6 Walking 10ft on uneven surface: 6 Distance: 40', 50', 35', 35,' 60'. 50' Gait Assistive Device: FWW Does the Pt Use a Wheelchair: No Wheel 50 ft with 2 turns (QC): 9 Wheel 150 ft (QC): 9 #of Steps: 12 1 Step (curb) (QC): 6 4 Steps (QC): 6 12 Steps (QC): 6 Walking Assistive Device: Walker Balance Sitting Static: Good Balance Sitting Dynamic: Good Balance-Standing Static: Fair Picking up an Object (QC): 6 Occupational Therapy Pt admitted to [facility] s/p CVA. At [facility], pt was independent with ADLS and functional mobility, no AD. Upon initial evaluation, pt was independent with eating and oral care, required SBA with showering, LBD and toileting and set up UBD and footwear. OT tx focused on increasing BUE strength and activity tolerance, and increasing safety and independence with ADLs and functional mobility. Pt made good progress towards goals, attaining all LTGS except showering (pt requires set up assistance with showering). Pt discharged home with family support, d/c from OT. Decreased Activ Tolerance, Decreased UE Strength Eating (QC): 6 Oral Hygiene (QC): 6 Shower/Bathe Self (QC): 5 (set up to cover midline/dialysis lines) Upper Body Dressing (QC): 6 Lower Body Dressing (QC): 6 On/Off Footwear (QC): 6 Toileting Hygiene (QC): 6 PT Animal Biologist Goals Detention Goals PT Animal Biologist Goals Time Frame: Jun 14, 2023 Roll Left to Right (QC): 6 Sit to Lying (QC): 6 Lying-Sitting on Side/Bed(QC): 6 Sit to Stand (QC): 6 Chair/Ubr-pk-Edhdu Xfer(QC): 6 (/c FWW or cane) Toilet/Commode Transfer (QC): 6 (/c FWW ) Car Transfer (QC): 6 (/c FWW and safe technique consistently) Does the Patient Walk: Yes Walk 10 feet (QC): 6 (/c FWW or cane) Walk 10ft-Uneven Surface(QC): 6 (/c FWW or cane) Walk 50ft with 2 Turns (QC): 6 (/c FWW or cane) Walk 150 ft (QC): 6 (/c FWW or cane) Does the Pt use WC or Scooter?: No Wheel 50 feet with 2 turns (QC: 9 Wheel 150 feet: 9 1 Step (curb) (QC): 6 (/c FWW or cane and rail) 4 Steps (QC): 6 (/c (B) rails /c safe technique and zachery) 12 Steps (QC): 6 (/c (B) rails /c safe technique and zachery) Picking up an Object (QC): 6 OT Animal Biologist Goals Animal Biologist Goals Time Frame: Jun 21, 2023 Acute change in mental status: 0 Inattention: 0 Disorganized thinkin Altered level of consciousness: 0 Eating (QC): 6 (met) Oral Hygiene (QC): 6 (met) Toileting Hygiene (QC): 6 (met) Shower/Bathe Self (QC): 6 (not met, set up) Upper Body Dressing (QC): 6 (met) Lower Body Dressing (QC): 6 (met) On/Off Footwear (QC): 6 (met) Additional Goals: 1-Demonstrate ADL Tasks, 2-Verbalize Understanding, 3- ImproveStrength/Grace 1=Demonstrate adherence to instructed precautions during ADL tasks. 2=Patient will verbalize/demonstrate understanding of assistive devices/modifications for ADL. 3=Patient will improve strength/tolerance for activity to enable patient to perform ADL's. Speech Animal Biologist Goals Animal Biologist Goals The pt will demonstrate improved memory for up to 5 units of information with 90% accuracy. MET The pt will complete functional mathematical problem solving with 90% accuracy. EMERGING AT HIGH-LEVEL PROBLEM SOLVING PÉREZ REED OT Jun 10, 2023 11:04
--- NOTE | 2023-06-11 08:29 | Therapy Team Discharge Summary ---
Therapy Discharge Summary Discharge Recommendations Date of Discharge Jun 08, 2023 at 10:10 Physical Therapy Roll Left to Right (QC): 6 Sit to Lying (QC): 6 Lying to Sitting/Side of Bed(Q: 6 Sit to Stand (QC): 6 Chair/Owa-if-Bclzm Xfer(QC): 6 Toilet Transfer (QC): 6 Car Transfer (QC): 6 Does the Patient Walk: Yes Walk 10 feet (QC): 6 Walk 50 ft with 2 Turns(QC): 6 Walk 150 ft (QC): 6 Walking 10ft on uneven surface: 6 Distance: 40', 50', 35', 35,' 60'. 50' Gait Assistive Device: FWW Does the Pt Use a Wheelchair: No Wheel 50 ft with 2 turns (QC): 9 Wheel 150 ft (QC): 9 #of Steps: 12 1 Step (curb) (QC): 6 4 Steps (QC): 6 12 Steps (QC): 6 Walking Assistive Device: Walker Balance Sitting Static: Good Balance Sitting Dynamic: Good Balance-Standing Static: Fair Picking up an Object (QC): 6 Occupational Therapy Decreased Activ Tolerance, Decreased UE Strength Eating (QC): 6 Oral Hygiene (QC): 6 Shower/Bathe Self (QC): 5 (set up to cover midline/dialysis lines) Upper Body Dressing (QC): 6 Lower Body Dressing (QC): 6 On/Off Footwear (QC): 6 Toileting Hygiene (QC): 6 Speech-Language Pathology At time of admission, the pt scored in the low mild range of cognitive impairment on the CLQT, with impaired executive function, STM, planning, attention, and problem solving. Therapy focused on working memory, alternating attention, and increasingly complex multi-step problem solving. At time of discharge, the pt demonstrated ability to complete complex problem solving with min assist and good accuracy, working memory was functional for maintaining up to 6 units of information. STM was accurate over 10 minutes for 5 units of data. PT Fdc Goals Correspondence Review Clerk Goals PT Fdc Goals Time Frame: Jun 14, 2023 Roll Left to Right (QC): 6 Sit to Lying (QC): 6 Lying-Sitting on Side/Bed(QC): 6 Sit to Stand (QC): 6 Chair/Rlq-yy-Gsgyn Xfer(QC): 6 (/c FWW or cane) Toilet/Commode Transfer (QC): 6 (/c FWW ) Car Transfer (QC): 6 (/c FWW and safe technique consistently) Does the Patient Walk: Yes Walk 10 feet (QC): 6 (/c FWW or cane) Walk 10ft-Uneven Surface(QC): 6 (/c FWW or cane) Walk 50ft with 2 Turns (QC): 6 (/c FWW or cane) Walk 150 ft (QC): 6 (/c FWW or cane) Does the Pt use WC or Scooter?: No Wheel 50 feet with 2 turns (QC: 9 Wheel 150 feet: 9 1 Step (curb) (QC): 6 (/c FWW or cane and rail) 4 Steps (QC): 6 (/c (B) rails /c safe technique and zachery) 12 Steps (QC): 6 (/c (B) rails /c safe technique and zachery) Picking up an Object (QC): 6 OT Fdc Goals Correspondence Review Clerk Goals Time Frame: Jun 21, 2023 Acute change in mental status: 0 Inattention: 0 Disorganized thinkin Altered level of consciousness: 0 Eating (QC): 6 (met) Oral Hygiene (QC): 6 (met) Toileting Hygiene (QC): 6 (met) Shower/Bathe Self (QC): 6 (not met, set up) Upper Body Dressing (QC): 6 (met) Lower Body Dressing (QC): 6 (met) On/Off Footwear (QC): 6 (met) Additional Goals: 1-Demonstrate ADL Tasks, 2-Verbalize Understanding, 3- ImproveStrength/Grace 1=Demonstrate adherence to instructed precautions during ADL tasks. 2=Patient will verbalize/demonstrate understanding of assistive devices/modifications for ADL. 3=Patient will improve strength/tolerance for activity to enable patient to perform ADL's. Speech Correspondence Review Clerk Goals Correspondence Review Clerk Goals The pt will demonstrate improved memory for up to 5 units of information with 90% accuracy. MET The pt will complete functional mathematical problem solving with 90% accuracy. EMERGING AT HIGH-LEVEL PROBLEM SOLVING CHRISTINE SHORT Jun 11, 2023 08:29
== END 2023-06-08 10:10 | disposition home or self-care (01) | DRG 56 ==
PROVIDERS: ADMIT Internal Medicine; ATTEND Internal Medicine
DX: I69.398 Other sequelae of cerebral infarction (principal); I21.4 Non-ST elevation (NSTEMI) myocardial infarction; I13.0 Hypertensive heart and chronic kidney disease with heart failure and stage 1 through stage 4 chronic kidney disease, or unspecified chronic kidney disease; I50.22 Chronic systolic (congestive) heart failure; R29.898 Other symptoms and signs involving the musculoskeletal system; R45.87 Impulsiveness; R26.9 Unspecified abnormalities of gait and mobility; R53.81 Other malaise; E11.22 Type 2 diabetes mellitus with diabetic chronic kidney disease; N18.9 Chronic kidney disease, unspecified; I25.10 Atherosclerotic heart disease of native coronary artery without angina pectoris; E78.5 Hyperlipidemia, unspecified; F17.290 Nicotine dependence, other tobacco product, uncomplicated; R30.0 Dysuria; D64.9 Anemia, unspecified; R74.8 Abnormal levels of other serum enzymes; R33.9 Retention of urine, unspecified
CPT/HCPCS: 36415; 80053; 81000; 82947; 82977; 85025

== ENCOUNTER → 2023-07-04 | Outpatient (RCR) | payer OTHER ==
[~2023-07-04] MED LIST changes: +ACHD5005 PO; +ALPR.25T PO; -ALPRAZolam 0.25 MG TABLET PO PRN; +ASPI-999 PO; +ASPI81TA64 PO; -CALCIUM CARBONATE 500 MG CHEW TABLET PO PRN; +CHOL-34 PO; +DOCU100C37 PO; -DOCUSATE SODIUM 100 MG CAPSULE PO PRN; +FOLI0.8T21 PO; +GABA-486 PO; +GLYB1.253 PO; +INSU100V45 SQ; +INSU100V6 SQ; +LACT1CAP76 PO; +LACT20SO2 PO; -LACTULOSE SYRUP 10GM/15ML 30ML UDC PO PRN; -LOPERAMIDE 2 MG CAPSULE PO PRN; -MELATONIN 3 MG TABLET PO PRN; +MIDO10TA PO; +MIDO5TAB3 PO; +MULT-1137 PO; -ONDANSETRON 4 MG ORAL DISSOLVE TABLET PO PRN; +PANT40TA52 PO; +POLY17PO6 PO; +SENN15TA5 PO; -Sodium Phosphate/Sodium Biphosphate ADULT enema PR PRN; +TICA90TA PO; +TMSL.4C PO; -diphenhydrAMINE 25 MG TABLET PO PRN; -guaiFENesin/CODEINE 10ML UDC PO PRN
== END | disposition home or self-care (01) ==
PROVIDERS: ATTEND Physician Assistant
DX: I69.359 Hemiplegia and hemiparesis following cerebral infarction affecting unspecified side (principal); E11.9 Type 2 diabetes mellitus without complications

== ENCOUNTER → 2023-07-04 | Outpatient (RCR) | payer OTHER | END | disposition home or self-care (01) | PROVIDERS: ATTEND Physician Assistant | DX: I69.359 Hemiplegia and hemiparesis following cerebral infarction affecting unspecified side (principal); G25.81 Restless legs syndrome ==